=== PATIENT | female | born 1965 | race African-American/Black ===

== ENCOUNTER → 2020-07-11 15:49 | Outpatient (CLI) | payer OTHER, SELFPAY ==
--- NOTE | ~2020-07-11 | MM_ITS ---
EXAMINATION: MM screening maureen BI w yan HISTORY: Screening mammogram TECHNIQUE: Craniocaudal and mediolateral oblique 3-D tomosynthesis images were obtained and synthetic 2-D images were generated. CAD analysis was submitted and interpreted. COMPARISON: 09/24/2017, 07/10/2016, 03/04/2015 bilateral digital screening mammogram examinations BREAST PARENCHYMAL COMPOSITION: There are scattered areas of fibroglandular density. FINDINGS: Occasional bilateral benign calcifications. There is no evidence of suspicious mass, calcif ication, or architectural distortion to suggest malignancy in either breast. There has been no suspic ious interval change. IMPRESSION: 1. No mammographic evidence of malignancy. 2. Recommend routine screening mammography in one year. BI-RADS Category 2: Benign finding(s). Reviewed, dictated and finalized at location A.
== END ==
PROVIDERS: Visit Provider Obstetrics & Gynecology
DX: Z12.31 Encounter for screening mammogram for malignant neoplasm of breast (principal)
CPT/HCPCS: 77063; 77067

== ENCOUNTER → 2021-07-15 17:04 | Outpatient (CLI) | payer OTHER, SELFPAY ==
--- NOTE | ~2021-07-15 | MM_ITS ---
EXAMINATION: MM screening maureen BI w yan HISTORY: Screening mammogram TECHNIQUE: Craniocaudal and mediolateral oblique 3-D tomosynthesis images were obtained and synthetic 2-D images were generated. CAD analysis was submitted and interpreted. COMPARISON: 07/11/2020, 09/24/2017, 07/10/2016 bilateral digital screening mammogram examinations BREAST PARENCHYMAL COMPOSITION: There are scattered areas of fibroglandular density. FINDINGS: Bilateral benign appearing axillary tail lymph nodes. Calcified circumscribed opacity in th e lower outer quadrant of the right breast near midline, likely a benign calcified fibroadenoma. Ther e is no evidence of suspicious mass, calcification, or architectural distortion to suggest malignancy in either breast. There has been no suspicious interval change. IMPRESSION: 1. No mammographic evidence of malignancy. 2. Recommend routine screening mammography in one year. BI-RADS Category 2: Benign finding(s). Reviewed, dictated and finalized at location A.
== END ==
PROVIDERS: PCP Internal Medicine; Visit Provider Obstetrics & Gynecology
DX: Z12.31 Encounter for screening mammogram for malignant neoplasm of breast (principal)
CPT/HCPCS: 77063; 77067

== ENCOUNTER 2021-08-19 01:49 | Day surgery (SDC) | payer OTHER, SELFPAY ==
[2021-07-31 13:52] VITALS: BMI 42.3
[2021-08-19 08:17] VITALS: BP 144/70; PULSE 66; RESP 16; TEMP 35.9; O2SAT 98
[2021-08-19] MEDS: LACTATED RINGERS 1,000 ML 150 ML IV CONT (08:29)
--- NOTE | 2021-08-19 08:41 | WPDANESEPPF ---
Anes - Initial Pre Proc Eval Procedure: Operation Date: 08/19/21 09:00 Proposed Procedures p Screening Colonoscopy - Kai Mo MD Date/Time: 08/19/21 08:41 Surgeon: Kai Mo MD Pre Op Diagnosis: neoplasm screening Patient Data Age: 56 Gender: F Height: 1.57 m Weight: 103.4 kg Last Vital Signs Temp 96.7 F L 08/19/21 08:17 Pulse 66 08/19/21 08:17 Resp 16 08/19/21 08:17 BP 144/70 H 08/19/21 08:17 Pulse Ox 98 08/19/21 08:17 Allergies Allergy/AdvReac Type Severity Reaction Status Date / Time No Known Allergies Allergy Verified 08/19/21 08:16 Home Medications Medication Instructions Recorded Confirmed Type gabapentin 100 mg PO TID 07/31/21 07/31/21 History Patient hx anesthesia problems: none Family hx anesthesia problems: none Results Review: All pre-operative results and documents have been reviewed as part of the pre-operative evaluation. FORMERLY [facility], [facility]–1983 Past Medical History Medical History (Updated 06/12/21 @ 09:01 by Tommy Brownlee MD) Asthma Surgical History Surgical History Previous section Family History Family History Grandparent Family history of malignant neoplasm of breast Family history of type 2 diabetes mellitus Social History Social History Smoking status: Never smoker Alcohol intake: never Substance use: never Substance use type: does not use Living arrangements: with family Spiritual care concerns: No Anes - Eval Final PreProcedure Day of Procedure 08/19/21 08:41 Patient weight: morbidly obese Heart: regular rate and rhythm Lungs: clear to auscultation Airway: Mallampati scale class II Neurological: alert and oriented Last oral intake: >/= 8 hours ASA classification: III Emergent: no Anesthetic plan: proceed Anesthesia type and monitoring: general GIVS and standard monitoring Results Review: All pre-operative results and documents have been reviewed as part of the pre-operative evaluation. Informed Consent: The patient's anesthetic plan and its attendant risks and benefits were discussed with the patient/family/POA. Questions were solicited and answers provided to the satisfaction of the patient/family/POA.
--- NOTE | 2021-08-19 08:46 | PM.HPGS ---
History of Present Illness History of Present Illness Consent: Risks, benefits, and alternatives have been discussed and questions answered. Patient agrees to proceed with procedure. Chief complaint: neoplasm screening Narrative: Dominique Manzano is a 56 year old female here for first screening colonoscopy Review of Systems Constitutional: Constitutional: Denies headache(s) and Denies weakness Eyes: Eyes: Denies blurry vision ENT: Reports Normal hearing present, Denies headache(s) and Denies neck pain Cardiovascular: Cardiovascular: Denies chest pain and Denies dyspnea Respiratory: Respiratory: Denies dyspnea Gastrointestinal: Gastrointestinal: Reports no additional gastrointestinal complaints Genitourinary: Genitourinary: Denies dysuria Musculoskeletal: Musculoskeletal: Denies neck pain Integumentary/Breasts: Skin/Breast: Denies dry skin Neurologic: Reports Normal hearing present, Denies headache(s) and Denies weakness Psychiatric: Psychiatric: Denies anxiety Endocrine: Endocrine: Denies change in body appearance Hematologic/Lymphatic: Hematologic/Lymphatic: Denies easy bleeding Allergic/Immunologic: Allergic/Immunologic: Denies urticaria [facility] Past Medical History Medical History (Updated 08/19/21 @ 08:46 by Kai Mo MD) Asthma Colon cancer screening Surgical History Surgical History Previous section Family History Family History Grandparent Family history of malignant neoplasm of breast Family history of type 2 diabetes mellitus Social History Social History Smoking status: Never smoker Alcohol intake: never Substance use: never Substance use type: does not use Living arrangements: with family Spiritual care concerns: No Meds Home Medications and Allergies Home Medications Medication Instructions Recorded Confirmed Type gabapentin 100 mg PO TID 07/31/21 08/19/21 History Allergies Allergy/AdvReac Type Severity Reaction Status Date / Time No Known Allergies Allergy Verified 08/19/21 08:16 Vital Signs Vital Signs - 24 hr 08/19/21 08:17 Temperature 96.7 F L Pulse Rate 66 Respiratory Rate 16 Blood Pressure 144/70 H Pulse Oximetry 98 Exam Const: General: comfortable and no acute distress HENMT: General nose exam: Normal nares present Eyes: General: appearance normal, both eyes and all related structures Neck: Neck: no JVD Resp: Auscultation: clear to auscultation bilaterally Cardio: Rate: regular rate Rhythm: regular rhythm GI: Inspection: non-distended GI Palp: Yes Soft to palpation Skin: General skin exam: normal color Neuro: General: gait normal Speech: normal speech Extrem: General: normal to inspection Psych: Mental Status: mental status grossly normal Assessment and Plan Assessment and plan (1) Colon cancer screening: Code(s): Z12.11 - Encounter for screening for malignant neoplasm of colon Status: Acute Assessment and Plan: colonoscopy
[2021-08-19 09:03] VITALS: BP 116/57; PULSE 72; RESP 12; O2SAT 100
[2021-08-19 09:13] VITALS: BP 122/87; PULSE 68; RESP 15; O2SAT 99
[2021-08-19 09:23] VITALS: BP 124/66; PULSE 65; RESP 19; O2SAT 100
== END 2021-08-19 09:45 | disposition home or self-care (01) ==
PROVIDERS: PCP Internal Medicine; Visit Provider Internal Medicine Gastroenterology
PROC: 0DJD8ZZ Inspection of Lower Intestinal Tract, Via Natural or Artificial Opening Endoscopic (ICD-10-PCS; CPT 45378; principal; 2021-08-19 09:00)
DX: Z12.11 Encounter for screening for malignant neoplasm of colon (principal); K64.8 Other hemorrhoids; E66.01 Morbid (severe) obesity due to excess calories; Z68.41 Body mass index [BMI] 40.0-44.9, adult
CPT/HCPCS: 45378; J2704; J7120

== ENCOUNTER → 2022-08-05 11:26 | Outpatient (CLI) | payer OTHER, SELFPAY ==
--- NOTE | ~2022-08-05 | MM_ITS ---
EXAMINATION: MM screening maureen BI w yan HISTORY: Screening TECHNIQUE: Craniocaudal and mediolateral oblique 3-D tomosynthesis images were obtained and synthetic 2-D images were generated. CAD analysis was submitted and interpreted. COMPARISON: Comparison to multiple prior studies sequentially, with oldest reviewed study dated 03/04. BREAST PARENCHYMAL COMPOSITION: There are scattered areas of fibroglandular density. FINDINGS: There is no evidence of suspicious mass, calcification, or architectural distortion to sugg est malignancy in either breast. There has been no suspicious interval change. IMPRESSION: 1. No mammographic evidence of malignancy. 2. Recommend routine screening mammography in one year. BI-RADS Category 1: Negative Reviewed, dictated and finalized at location A. TAL ADVERTISING SPECIALIST
== END ==
PROVIDERS: PCP Obstetrics & Gynecology; Visit Provider Obstetrics & Gynecology
DX: Z12.31 Encounter for screening mammogram for malignant neoplasm of breast (principal)
CPT/HCPCS: 77063; 77067

== ENCOUNTER 2022-12-16 13:33 | Outpatient (CLI) | payer OTHER, SELFPAY ==
[2022-12-17 13:58] LABS: Rapid Plasma Reagin Non-Reactive (NonReactive)
[2022-12-19 21:16] LABS: HSV 1 IgM Screen Negative (Negative); HSV 2 IgM Screen Positive (Negative)
[2022-12-19 21:47] LABS: HSV 2 IgM Titer 1:20 (<1:20)
== END 2022-12-16 13:34 | disposition home or self-care (01) ==
LOC: ANHLAB 13:35
PROVIDERS: PCP Obstetrics & Gynecology; Visit Provider Registered Nurse
DX: Z20.2 Contact with and (suspected) exposure to infections with a predominantly sexual mode of transmission (principal)
CPT/HCPCS: 36415; 86592; 86695; 86696

== ENCOUNTER → 2023-08-10 12:28 | Outpatient (CLI) | payer OTHER, SELFPAY ==
--- NOTE | ~2023-08-10 | MM_ITS ---
EXAMINATION: MM screening maureen BI w yan HISTORY: Screening mammogram TECHNIQUE: Craniocaudal and mediolateral oblique 3-D tomosynthesis images were obtained and synthetic 2-D images were generated. CAD analysis was submitted and interpreted. COMPARISON: 08/05/2022, 07/15/2021, 07/11/2020 bilateral screening mammogram examinations BREAST PARENCHYMAL COMPOSITION: There are scattered areas of fibroglandular density. FINDINGS: Stable mild fibroglandular asymmetry. Occasional benign calcifications. There is no evidenc e of suspicious mass, calcification, or architectural distortion to suggest malignancy in either [address] There has been no suspicious interval change. IMPRESSION: 1. No mammographic evidence of malignancy. 2. Recommend routine screening mammography in one year. BI-RADS Category 2: Benign finding(s). Reviewed, dictated and finalized at location A. PAN OPERATOR
== END ==
PROVIDERS: PCP Obstetrics & Gynecology; Visit Provider Obstetrics & Gynecology
DX: Z12.31 Encounter for screening mammogram for malignant neoplasm of breast (principal)
CPT/HCPCS: 77063; 77067

== ENCOUNTER 2024-08-15 15:59 | Outpatient (CLI) | payer OTHER, SELFPAY ==
--- NOTE | ~2024-08-15 | MM_ITS ---
EXAMINATION: MM screening maureen BI w yan HISTORY: Screening TECHNIQUE: Craniocaudal and mediolateral oblique 3-D tomosynthesis images were obtained and synthetic 2-D images were generated. CAD analysis was submitted and interpreted. COMPARISON: Comparison to multiple prior studies sequentially, with oldest reviewed study dated 01/2018. BREAST PARENCHYMAL COMPOSITION: Not dense: There are scattered areas of fibroglandular density. FINDINGS: There is no evidence of suspicious mass, calcification, or architectural distortion to sugg est malignancy in either breast. There has been no suspicious interval change. IMPRESSION: 1. No mammographic evidence of malignancy. 2. Recommend routine screening mammography in one year. BI-RADS Category 1: Negative Reviewed, dictated and finalized at location B. ATIENT SURGERY RN
== END 2024-08-15 16:00 | disposition home or self-care (01) ==
LOC: MICIMG 15:59
PROVIDERS: PCP Obstetrics & Gynecology; Visit Provider Obstetrics & Gynecology
DX: Z12.31 Encounter for screening mammogram for malignant neoplasm of breast (principal)
CPT/HCPCS: 77063; 77067

== ENCOUNTER 2024-09-12 07:11 | Outpatient (CLI) | payer OTHER, SELFPAY ==
[2024-09-12 08:09] LABS: Basophils Percent Auto 0.5 % (0.2-1.2); Eosinophils Absolute Auto 0.1 K/mm3 (0-0.3); Eosinophils Percent Auto 1.4 % (0-4.4); Hemoglobin 13.2 g/dL (12.0-15.0); Immature Granulocyte Absolute 0.03 K/mm3 (0.00-0.031); Immature Granulocyte Percent A 0.5 % (0-0.5); Lymphocytes Absolute Auto 1.58 K/mm3 (0.9-3.2); Lymphocytes Percent Auto 28.6 % (18.3-44.2); Mean Corpuscular Hemoglobin 29.8 pg (26-34); Mean Corpuscular Volume 90.3 fl (80-100); Mean Platelet Volume 10.1 fl (7.4-10.4); Monocytes Absolute Auto 0.4 K/mm3 (0.1-0.6); Monocytes Percent Auto 6.9 % (2.6-8.5); Neutrophils Absolute Auto 3.4 K/mm3 (1.3-6.7); Neutrophils Percent Auto 62.1 % (45.5-73.1); Platelet Count Result 288 k/mm3 (150-375); Red Blood Count 4.43 M/mm3 (4.2-5.4); Red Cell Distribution Width 12.7 % (11.5-14.5); White Blood Count 5.5 K/mm3 (4.5-10.0)
[2024-09-12 08:18] LABS: Alanine Aminotransferase 16 U/L (6-35); Albumin Level 3.9 g/dL (3.5-5.1); Alkaline Phosphatase 119 U/L (38-126); Anion Gap 1 mmol/L (4-12); Aspartate Amino Transferase 24 U/L (14-36); Bilirubin,Total 0.6 mg/dL (0.2-1.3); Blood Urea Nitrogen 12 mg/dL (7-17); Calcium 9.1 mg/dL (8.4-10.2); Carbon Dioxide 30 mmol/L (22-30); Chloride 108 mmol/L (98-107); Cholesterol 232 mg/dL (0-200); Estimated Glomerular Filt Rate > 60; Glucose 112 mg/dL (65-110); HDL Direct 55 mg/dL; Potassium 3.8 mmol/L (3.4-5.0); Sodium 139 mmol/L (137-145); Triglycerides 124 mg/dL (<150)
[2024-09-12 08:29] LABS: LDL Cholesterol Direct 124 mg/dL
[2024-09-12 09:33] LABS: Vitamin D 25 Hydroxy 16.8 ng/mL
--- OUTSIDE RECORDS SUMMARY | 2024-09-19 04:37 | XMS_ITS | Referral Summary ---
Author Organization [facility] [place] [address] [place] [id number] Care Team Providers Care Livestock Farmworker Name Role Phone Lillian Adam MD Primary Care Provider [phone] Tommy Brownlee MD Unavailable [phone] Allergies No known active allergies Medications ergocalciferol (VITAMIN D) 50,000 unit capsuleIndicati ons:Vitamin D deficiency TAKE 1 CAPSULE BY MOUTH ONE TIME PER WEEK 12 capsule 1 Active meloxicam (MOBIC) 7.5 mg tabletIndicatio ns:Osteoarthrit is Take 1 tablet (7.5 mg total) by mouth daily 30 tablet 1 1 Active Additional Information Patient not taking.Reported on 09/09/2021 gabapentin (NEURONTIN) 100 mg capsule Take 1 capsule (100 mg total) by mouth 3 (three) times a day 90 capsule 11 1 Active HYDROcodone-karissa taminophen (NORCO) 5-325 mg per tabletIndicatio ns:Pain,post op pain Take 1 tablet by mouth every 4 (four) hours as needed for pain 30 tablet 1 Active Active Problems Problem Noted Date Diagnosed Date Carpal tunnel syndrome of right wrist 06/12/2021 Assessment & Plan (06/12/2021 2:12 PM CDT): Positive Phalen sign HPI consistent and high risk with job, BMI Provided spliting mobic, offered PT but she wants to hold off for now Vitamin D deficiency (17) 02/25/2021 Overview (02/25/2021): vit D workup. isn't keen on sleep apnea workup. treat with high dose vit D adn recheck labs w/ video visit in a couple weeks and vit D in 3mo Assessment & Plan (06/12/2021 2:13 PM CDT): Reviewed all labs with her, including h.pylori and celiac testing, encouraged her to keep up with the prescrtiption Vit D. Everything else was WNL alkphos elevation mild (nl GGT) 02/25/2021 Overview (02/25/2021): check isoenzymes and phos levels. GGT and US GB were nl. more likely bone....but may need hida in future? Gut?(fatty stool) Morbid obesity with BMI of 40.0-44.9, adult 04/2021 Overview (02/25/2021): w/ prediabetes,HTN,HLD,carotid atherosclerosis. will rediscuss wt loss options HLD (LDL 138) 02/25/2021 Overview (02/25/2021): discussed role of statins if diabetic. otherweise diet/exercise B12 deficiency (2012) 02/25/2021 Overview (02/25/2021): check hpylori,has vit D def.check homocystein (carotid atherosclerosis) Prediabetes 02/25/2021 Overview (02/25/2021): hga1c 6.5, FBS 110. discussed in length prediabetes. advised monitor sugars and discuss at video visit. will discuss wt loss options in future (wants to discuss Right apex Lung calcification-to readdress 02/25 Hepatic steatosis 02/25/2021 Overview (02/25/2021): w/ alkphos,vit D def,obesity, Carotid atherosclerosis (<15% b/l) 01/20/2021 Assessment & Plan (02/25/2021 6:04 PM CDT): Reduce risk factors. Check if DM. If so discussed criteria for RF control Chronic vasomotor rhinitis 01/20/2021 HTN, goal below 140/90 01/20/2021 Overview (01/20/2021): workup. appears bouncing around. vasomotor??. right<left. Assessment & Plan (02/25/2021 6:00 PM CDT): Has plaque in carotids minimal on US. Rest of workup normal. Recommend home bp. Today diastolic a little low (vasodilated w/ sligthly low temp of 35.7). Cough 01/20/2021 Assessment & Plan (02/25/2021 6:02 PM CDT): improved Polyarthralgia 01/20/2021 Overview (01/20/2021): hands in am (minutes). medial knees Exercise-induced bronchospasm 05/07/2011 RAD (reactive airway disease) 05/07/2011 Resolved Problems Problem Noted Date Diagnosed Date Resolved Date Thyromegaly 01/20/2021 02/25/2021 Immunizations Name Administration Dates Next Due Influenza, Quadrivalent, Rec ombinant, Egg Free, Preservative Free, Intramuscular 07/04/2020 Moderna SARS-CoV-2 Monovalent Vaccination (12+ Y RS) 11/27/2020,10/30/2020 Tdap 11/12/2006 Social History Tobacco Use Types Packs/Day Years Used Date Smoking Tobacco: Never Smokeless Tobacco: Never AUDIT-C Answer Date Recorded Q1: How often do you have a drink containing alc ohol? 2-4 times a month 09/09/2021 Q2: How many drinks containi ng alcohol do you have on a typical day when you are drinking? 1 or 2 09/09/2021 Q3: How often do you have si x or more drinks on one occasion? 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 [employer] Gender Identity Not on file Sexual Orientation Not on file Last Filed Vital Signs Vital Sign Reading Time Taken Comments Blood Pressure 134/64 09/09/2021 11:30 AM SWEEPER OPERATOR [employer] Pulse 58 09/09/2021 11:30 AM SWEEPER OPERATOR [employer] Temperature 36.3 ??C (97.3 ??F) 09/09/2021 11:[address] Respiratory Rate 16 09/09/2021 11:30 AM SWEEPER OPERATOR [employer] Oxygen Saturation 95% 09/09/2021 11:30 AM SWEEPER OPERATOR [employer] Inhaled Oxygen Concentration - - Weight 106.2 kg (234 lb 1 oz) 09/09/2021 7:51 AM SWEEPER OPERATOR [employer] Height 157.5 cm (5' 2 ) 09/09/2021 7:51 AM SWEEPER OPERATOR [employer] Body Mass Index 42.81 09/09/2021 7:51 AM SWEEPER OPERATOR [employer] Plan of Treatment Not on file Procedures Procedure Name Priority Date/Time Associated Diagnosis Comments MAMMOGRAPHY Routine 07/11/2020 PAP SMEAR WITH HPV Routine 06/04/2020 from Last 3 Months or Most Recently Relevant to Health Maintenance Results * MAMMOGRAPHY (07/11/2020) Historical Provider HEALTH MAINTENANCE Final Result * PAP SMEAR WITH HPV (06/04/2020) Historical Provider HEALTH MAINTENANCE Final Result from Last 3 Months or Most Recently Relevant to Health Maintenance Insurance [facility] H[facility]/PPO Address: [address] [place] [address] [facility]/PPO Address: [place] [address] Care Teams Livestock Farmworker Relationship Specialty Start Date End Date Lillian Adam MD [address] [place] [phone] PCP - General Internal Medicine 12/25/20 Tommy Brownlee MD [address] [address] Referring Physician Obstetrics and Gynecology 01/20/21
--- OUTSIDE RECORDS SUMMARY | 2024-09-19 04:37 | XMS_ITS | Encounter Summary ---
Author Organization [facility] Address [address] [place] [address] Care Team Providers Care Guest Associate Name Role Phone Lillian Adam MD Primary Care Provider [phone] Tommy Brownlee MD Unavailable [phone] Reason for Referral * Diagnostic Imaging (Routine) - Closed Specialty Diagnoses / Procedures Referred By Zeny shaw Referred To Contact Diagnoses Localized swelling, mass, or lump of upper extremity, bilateral Procedures US Vein Duplex Upper Extremity Bilateral Complete Lillian Adam MD [address] [place] [id number] Phone: tel: fax: [address] [phone] Referral ID Status Reason Start Date Expiration Date Visits Re quested Visits Authorized [id number] Closed 07/16/2021 08/15/2022 1 1 Reason for Visit * Diagnostic Imaging (Routine) - Closed Specialty Diagnoses / Procedures Referred By Zeny shaw Referred To Contact Diagnoses Localized swelling, mass, or lump of upper extremity, bilateral Procedures US Vein Duplex Upper Extremity Bilateral Complete Lillian Adam MD [address] [place] [address] Phone: tel: fax: [address] [phone] Referral ID Status Reason Start Date Expiration Date Visits Re quested Visits Authorized [id number] Closed 07/16/2021 08/15/2022 1 1 Encounter Details Date Type Department Care Team (Latest Contact Info) Description 07/25/2021 9:20 AM CDT - 07/25/2021 11:59 PM CDT Hospital Encounter [facility] Cardiac Testing [address] [place] [id number] Localized swelling, mass, or lump of upper extremity, bilateral Discharge Disposition: Discharge to home or self care Social History Tobacco Use Types Packs/Day Years Used Date Smoking Tobacco: Never Smokeless Tobacco: Never AUDIT-C Answer Date Recorded Q1: How often do you have a drink containing alc ohol? Monthly or less 01/20/2021 Q2: How many drinks containi ng alcohol do you have on a typical day when you are drinking? 1 or 2 01/20/2021 Frequency of Binge Drinking Not on file 11/2020 PHQ-2 Answer Date Recorded PHQ-2 Total Score (If total score is 3 or more points, staff should administer the PHQ-9) 0 01/20/2021 Comments No Sex and Gender Information Value Date Recorded Sex Assigned at Not on file Legal Sex Female 8:38 PM LEAF TIER Gender Identity Not on file Sexual Orientation Not on file documented as of this encounter Medications at Time of Discharge ergocalciferol (VITAMIN D) 50,000 unit capsuleIndicatio ns:Vitamin D deficiency TAKE 1 CAPSULE BY MOUTH ONE TIME PER WEEK 12 capsule 05/16/2021 gabapentin (NEURONTIN) 100 mg capsule Take 1 capsule (100 mg total) by mouth 3 (three) times a day 90 capsule 11 07/30/2021 meloxicam (MOBIC) 7.5 mg tabletIndication s:Osteoarthritis Take 1 tablet (7.5 mg total) by mouth daily 30 tablet 1 06/12/2021 levoFLOXacin (LEVAQUIN) 500 mg tablet Take 1 tablet (500 mg total) by mouth daily for 10 days 10 tablet 07/16/2021 07/26/2021 fluconazole (DIFLUCAN) 150 mg tablet Take 1 tablet (150 mg total) by mouth as directed Take one tab now. Repeat in 7 days if symptoms persist. 2 tablet 07/16/2021 09/09/2021 predniSONE (DELTASONE) 20 mg tabletIndication s:Anti-inflammat ory,Radiculopath y 3tabs for 5days, then 2 tabs for 5day,then 1tab for 5days 30 tablet 07/16/2021 09/09/2021 documented as of this encounter Discharge Disposition Disposition Code Departure Means Destination Discharge to home or self care documented in this encounter Miscellaneous Notes * Result Encounter Note - Lillian Adam MD - 07/25/2021 11:59 PM CDT Inform pt normal. Any questions can be answered at next visit. TIER documented in this encounter Plan of Treatment Not on file documented as of this encounter Procedures Procedure Name Priority Date/Time Associated Diagnosis Comments US VEIN DUPLEX UPPER EXTREMITY BILATERAL COMPLETE Schedule Routine, Read Routine (OP Routine) 07/25/2021 10:06 AM CDT Localized swelling, mass, or lump of upper extremity, bilateral documented in this encounter Results * US Vein Duplex Upper Extremity Bilateral Complete (07/25/2021 10:06 AM CDT) Anatomical Region Laterality Modality Vascular Bilateral Ultrasound 07/25/2021 Narrative 07/26/2021 7:30 AM CDT [employer] Job ID: [id number] [employer] Document ID: [id number] Dictated date/time: [id number] BILATERAL UPPER EXTREMITY VENOUS DUPLEX REASON FOR EXAM Swelling. FINDINGS ON THE RIGHT The right internal jugular, subclavian, axillary demonstrate spontaneous phasic flow that augments and are compressible. ??The brachiocephalic, basilic demonstrate spontaneous flow and are compressible. FINDINGS ON THE LEFT The left internal jugular, subclavian, axillary demonstrate spontaneous phasic flow that augments and are compressible. ??The brachiocephalic and basilic are all spontaneous and are compressible. INTERPRETATION No evidence of deep or superficial venous thrombosis in bilateral upper extremities. JOB ID/VF JOB ID: ??[id number] Lillian Adam MD IMG US PROCEDURES Final Resu lt documented in this encounter Visit Diagnoses Diagnosis Localized swelling, mass, or lump of upper extremity, bilateral documented in this encounter Care Teams Guest Associate Relationship Specialty Start Date End Date Lillian Adam MD [employer] [address] PCP - General Internal Medicine 12/25/20 Tommy Brownlee MD [address] [place] [address] Referring Physician Obstetrics and Gynecology 01/20/21 documented as of this encounter
--- OUTSIDE RECORDS SUMMARY | 2024-09-19 04:37 | XMS_ITS | Encounter Summary ---
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 Name Role Phone Lillian Adam MD Primary Care Provider [phone] Tommy Brownlee MD Unavailable [phone] Reason for Visit * Auth/Cert Specialty Diagnoses / Procedures Referred By Zeny shaw Referred To Contact Diagnoses Carpal tunnel syndrome on right Carpal tunnel syndrome on right [G56.01] Procedures MA REVISE MEDIAN N/CARPAL TUNNEL SURG RELEASE RIGHT CARPAL TUNNEL Referral ID Status Reason Start Date Expiration Date Visits Re quested Visits Authorized [id number] 1 1 Encounter Details Date Type Department Care Team (Late st Contact Info) Description 09/09/2021 10:06 AM LIBRARY HISTORIAN Anesthesia Event [facility] [place] [address] [place] [id number] Zeina Finch MD [address] [place] [address] Dalton Davalos MD [address] [place] [address] Anesthesia Record Procedure Summary Procedure Name Responsible Anesthesiologist Anesthesia Start Time Anesthesia Stop Time RELEASE RIGHT CARPAL TUNNEL (Right: Wrist) Zeina Finch MD 09/09/21 1006 09/09/21 1027 Events Date Time Event Comment 09/09/2021 0828 1006 In Room 1006 An Start 1006 An Start Data 1009 An Induction The patient was reevaluated immediately before moderate or deep sedation use and before anesthesia induction. 1011 An LMA 1012 Anesthesia Ready 1013 Proc Start 1018 Proc Fin 1020 An Extubation 1021 Start Supplemental O2 8 LPM SFM applied for transport to recovery 1022 Out of Room 1022 an stop data 1025 Handoff to RN I completed my handoff to the receiving nurse during which we: 1. Patient identified 2. Responsible provider identified 3. Pertinent medical history reviewed 4. Procedure type and surgical course discussed 5. Intraoperative anesthetic management and any significant issues discussed 6. Expectations and concerns for postop period discussed 7. Questions solicited from receiving nurse 8. Patient disposition at the time of handoff: PACU 1027 An Stop Meds Name Total propofol 200 mg lidocaine (cardiac) syringe 2 % 80 mg fentaNYL 50 mcg/mL PF 100 mcg ondansetron PF 4 mg dexAMETHasone 4 mg/mL 4 mg ceFAZolin (ANCEF) 2,000 mg/20 mL in ster ile water (premix) 2,000 mg 2,000 mg Lactated Ringer's (LR) infusion 400 mL * Agents Name O2% N2O O2 N2O Air Sevoflurane Inspired Sevoflurane * Blood No blood administrations on file. Lines, Drains, and Airways Type Details Placement Removal Peripheral IV Placement Date: 09/09/21; Placement Time: 0815; Catheter Size: 20 G; Orientation: Left, Posterior; Location: Hand; Technique: Anatomical landmarks; Insertion Attempts: 1; Removal Date: 09/09/21; Removal Time: 1131 09/09/21 0815 by Edita Roper RN 09/09/21 1131 by Edita Roper, TERELL Supraglottic Airway Placement Date: 09/09/21; Placement Time: 1011 (created via procedure documentation); Mask Ventilation: 0; Size: 4; Insertion Attempts: 1; Comments: Atraumatic, no change in dentition. ; Removal Date: 09/09/21; Removal Time: 1100 (removed prior to phase 2) 09/09/21 1011 by Stephanie Gray CRNA 09/09/21 1100 by Edita Roper RN RETIRED Surgical Site 09/09/21; 1015; Ri ght; Hand; 08/22/24 (Retired LDA, Removed/Completed by [facility] with LDA Utility); 1213 (Retired LDA, Removed/Completed by [facility] with LDA Utility) 09/09/21 1015 by Arina Menendez RN 08/22/24 1213 by Discharge Provider, Automatic documented in this encounter Social History Tobacco Use Types Packs/Day Years [...] on file Legal Sex Female 8:38 PM LIBRARY HISTORIAN Gender Identity Not on file Sexual Orientation Not on file documented as of this encounter OR Notes * Anesthesia Postprocedure Evaluation - Dalton Davalos MD - 09/09/2021 10:53 AM CST Patient: Dominique Manzano Procedure Summary Date: 09/09/21 Room / Location: [facility] / [facility] Anesthesia Start: 1006 Anesthesia Stop: 1027 Procedure: RELEASE RIGHT CARPAL TUNNEL (Right Wrist) Diagnosis: Carpal tunnel syndrome on right (Carpal tunnel syndrome on right [G56.01]) Surgeons: Rashaad Miller MD Responsible Provider: Zeina Finch MD Anesthesia Type: general ASA Status: 3 Anesthesia Type: general Last vitals BP 138/77 (BP Location: Left arm, Patient Position: HOB 30 degrees) Pulse 66 Temp 36.6 ??C (97.8 ??F) (Temporal) Resp 18 SpO2 99% Anesthesia Post Evaluation Patient location during evaluation: PACU Patient participation: complete - patient participated Level of consciousness: fully awake Pain management: adequate Airway patency: adequate Evidence of recall: no Cardiovascular status: acceptable Respiratory status: acceptable Hydration status: acceptable Pt is: normothermic Nausea/Vomiting status: none No complications documented. ARY HISTORIAN * Anesthesia Procedure Notes - Stephanie Gray CRNA - 09/09/2021 10:27 AM CSTAssociated Order(s): Airway Airway Patient location: OR Urgency: elective Date/time: 09/09/2021 10:11 AM Indications for airway management: anesthesia Difficult airway: no Staff: Supervising provider: Zeina Finch MD Placed by: RUNNER OUT: Stephanie Gray CRNA Emergent airway documentation: Risks and benefits discussed: yes Consent obtained: yes Consent given by: patient Airway prep: Preoxygenated: yes Patient position: sniffing Mask difficulty assessment: 0 - not attempted Spontaneous ventilation during airway: absent Sedation level during airway: deep Final airway details: Final airway type: supraglottic airway Final supraglottic airway: classic SGA size: 4 Number of attempts: 1 Additional comments: Atraumatic, no change in dentition. ARY HISTORIAN * Anesthesia Preprocedure Evaluation - Zeina Finch MD - 09/09/2021 8:27 AM CST Images from the original note were not included. Anesthesia Evaluation Dominique Manzano is a 56 y.o. female Procedure(s): RELEASE RIGHT CARPAL TUNNEL Pre-Op Diagnosis Codes: * Carpal tunnel syndrome on right [G56.01] HISTORY Past Medical History Neurological + CVA/Stroke + ICA stenosis Cardiovascular + Hypertension Respiratory + Asthma Endocrine / Other + Obesity (BMI >30) Patient Active Problem List Diagnosis ? ? Carotid atherosclerosis (<15% b/l) ??? Chronic vasomotor rhinitis ??? HTN, goal below 140/90 ??? Cough ??? Polyarthralgia ??? Vitamin D deficiency (17) ??? alkphos elevation mild (nl GGT) ??? Morbid obesity with BMI of 40.0-44.9, adult (HCC) ??? HLD (LDL 138) ??? B12 deficiency (307 2012) ??? Prediabetes ??? Right apex Lung calcification-to readdress ??? Hepatic steatosis ??? Carpal tunnel syndrome of right wrist ??? Exercise-induced bronchospasm ??? RAD (reactive airway disease) Past Medical History: Diagnosis Date ??? Allergic rhinitis ? ? Carotid atherosclerosis (<15% b/l) 01/20/2021 ??? Exercise-induced asthma ??? HLD (LDL 138) 02/25/2021 discussed role of statins if diabetic. otherweise diet/exercise Past Surgical History: Procedure Laterality Date ??? SECTION ??? COLONOSCOPY OB History No obstetric history on file. No Known Allergies Taking? Last Dose Start Date End Date Provider gabapentin (NEURONTIN) 100 mg capsule 08/21/2021 07/30/21 07/30/22 Lillian Adam MD Take 1 capsule (100 mg total) by mouth 3 (three) times a day meloxicam (MOBIC) 7.5 mg tablet Unknown 06/12/21 -- Grant St Jr., MD Take 1 tablet (7.5 mg total) by mouth daily Flag for Review Taking? Last Dose Start Date End Date Provider ergocalciferol (VITAMIN D) 50,000 unit capsule 05/16/21 -- Lillian Adam MD TAKE 1 CAPSULE BY MOUTH ONE TIME PER WEEK fluconazole (DIFLUCAN) 150 mg tablet 07/16/21 -- Lillian Adam MD Take 1 tablet (150 mg total) by mouth as directed Take one tab now. Repeat in 7 days if symptoms persist. predniSONE (DELTASONE) 20 mg tablet 07/16/21 -- Lillian Adam MD 3tabs for 5days, then 2 tabs for 5day,then 1tab for 5days Current Facility-Administered Medications: ??? acetaminophen (TYLENOL) tablet 975 mg, 975 mg, oral, Once ??? ceFAZolin (ANCEF) 2,000 mg/20 mL in sterile water (premix) 2,000 mg, 2,000 mg, intravenous, Once ??? famotidine (PEPCID) tablet 20 mg, 20 mg, oral, Once ??? Lactated Ringer's (LR) infusion, 30 mL/hr, intravenous, Continuous ??? lidocaine PF (XYLOCAINE) 10 mg/mL (1 %) preservative free injection 2-10 mg, 0.2-1 mL, other, Once PRN ??? sodium chloride 0.9% flush 0.5-20 mL, 0.5-20 mL, intra-catheter, PRN Social History Tobacco Use Smoking Status Never Smoker Smokeless Tobacco Never Used Substance and Sexual Activity Alcohol Use Not on file Substance and Sexual Activity Drug Use Never No family history on file. Vitals: 09/09/21 0751 BP: 150/81 Pulse: 79 Resp: 18 Temp: 36.6 ??C (97.9 ??F) SpO2: 97% PT: No results found for requested labs within last 720 hours. INR: No results found for requested labs within last 720 hours. APTT: No results found for requested labs within last 720 hours. Hgb A1C: No results found for requested labs within last 720 hours. CBC RBC: No results found for requested labs within last 720 hours. RDW: No results found for requested labs within last 720 hours. MCHC: No results found for requested labs within last 720 hours. MCH: No results found for requested labs within last 720 hours. MCV: No results found for requested labs within last 720 hours. Hct: No results found for requested labs within last 720 hours. Hgb: No results found for requested labs within last 720 hours. WBC: No results found for requested labs within last 720 hours. MPV: No results found for requested labs within last 720 hours. Platelets: No results found for requested labs within last 720 hours. RDW CV: No results found for requested labs within last 720 hours. RDW Sd: No results found for requested labs within last 720 hours. BMP Glucose: No results found for requested labs within last 720 hours. Calcium: No results found for requested labs within last 720 hours. Sodium: No results found for requested labs within last 720 hours. Potassium: No results found for requested labs within last 720 hours. CO2: No results found for requested labs within last 720 hours. Chloride: No results found for requested labs within last 720 hours. BUN: No results found for requested labs within last 720 hours. Creatinine: No results found for requested labs within last 720 hours. STOP-Bang Total Score: 3 DOS Physical Exam Medical history, medications, and allergies reviewed. Attestation: This PAT evaluation 09/09/2021. Airway Exam: Mallampati: II Cervical ROM: FROM TM distance: normal Cardiovascular Exam: Rate: regular Rhythm: regular Pulmonary Exam: LCTA, bilat EENT Exam: trachea midline Dental Exam: Appears intact Current state: Patient's current state is cooperative. Anesthesia Plan ASA 3 My patient is approved for the Anesthesia Controlled Medication protocol when under care of a RUNNER OUT Planned anesthesia: General Team communication plan: LMA Induction: Induction: intravenous. Postoperative Plan: Postoperative administration opioids intended. Informed Consent: Discussed plan with RUNNER OUT. Anesthesia plan and risks discussed with patient. Consent and Attending signature: I and/or my designee have discussed the anesthesia plan, benefits, possible alternatives, parental presence at time of induction (if indicated), and clinically relevant risks that may include dental injury, unintentional awareness, and/or other complications. The patient and/or parent/legal guardian understand, and agree to proceed. All questions answered. ARY HISTORIAN documented in this encounter Plan of Treatment Not on file documented as of this encounter Procedures Procedure Name Priority Date/Time Associated Diagnosis Comments MA AN PROCEDURE PLACEHOLDER Routine 09/09/2021 10:11 AM LIBRARY HISTORIAN MA AN ELECTIVE SUPRAGLOTTIC AIRWAY Routine 09/09/2021 10:11 AM LIBRARY HISTORIAN documented in this encounter Results * MA AN ELECTIVE SUPRAGLOTTIC AIRWAY, MA AN PROCEDURE PLACEHOLDER (09/09/2021 10:11 AM LIBRARY HISTORIAN) Narrative Stephanie Gray CRNA - 09/09/2021 10:11 AM LIBRARY HISTORIAN Stephanie Gray CRNA ? 09/09/2021 10:27 AM Airway Patient location: OR Urgency: elective Date/time: 09/09/2021 10:11 AM Indications for airway management: anesthesia Difficult airway: no Staff: Supervising provider: Zeina Finch MD Placed by: RUNNER OUT: Stephanie Gray CRNA Emergent airway documentation: Risks and benefits discussed: yes Consent obtained: yes Consent given by: patient Airway prep: Preoxygenated: yes Patient position: sniffing Mask difficulty assessment: 0 - not attempted Spontaneous ventilation during airway: absent Sedation level during airway: deep Final airway details: Final airway type: supraglottic airway Final supraglottic airway: classic SGA size: 4 Number of attempts: 1 Additional comments: Atraumatic, no change in dentition. Zeina Finch MD ANESTHESIA ORDERABLES Fin al Result documented in this encounter Visit Diagnoses Not on filedocumented in this encounter Administered Medications Inactive Administered Medications - up to 3 most recent administrations Medication Order MAR Action Action Date Dose Rate Site ceFAZolin (ANCEF) 2,000 mg/20 mL in sterile water (premix) 2,000 mg 2,000 mg, intravenous, at 400 mL/hr, Administer over 3 Minutes, Once, On Wed09/09/21 at 0845, For 1 dose, Pre-Op, Administer within 60 minutes of incision., Indications: Prophylaxis, SurgicalIndications:Prophylaxis , Surgical Given 09/09/2021 10:12 AM LIBRARY HISTORIAN 2,000 mg dexAMETHasone (DECADRON) 4 mg/mL injection intravenous, Administer over 2 Minutes, As needed, Starting on Wed09/09/21 at 1017, Anesthesia Intra-op Given 09/09/2021 10:17 AM LIBRARY HISTORIAN 4 mg fentaNYL (SUBLIMAZE) preservative free injection intravenous, As needed, Starting on Wed09/09/21 at 1006, Anesthesia Intra-op Given 09/09/2021 10:22 AM LIBRARY HISTORIAN 25 mcg Given 09/09/2021 10:09 AM LIBRARY HISTORIAN 25 mcg Given 09/09/2021 10:06 AM LIBRARY HISTORIAN 50 mcg Lactated Ringer's (LR) infusion 30 mL/hr, intravenous, Continuous, Starting on Wed09/09/21 at 0845, Pre-Op Restarted 09/09/2021 10:06 AM LIBRARY HISTORIAN New Bag 09/09/2021 8:34 AM LIBRARY HISTORIAN 30 mL/hr 30 mL/hr lidocaine (cardiac) (XYLOCAINE) preservative free injection intravenous, As needed, Starting on Wed09/09/21 at 1009, Anesthesia Intra-op, Indications: Ventricular ArrhythmiasIndications:Ventricular Arrhythmias Given 09/09/2021 10:09 AM LIBRARY HISTORIAN 80 mg ondansetron (ZOFRAN) injection intravenous, Administer over 2 Minutes, As needed, Starting on Wed09/09/21 at 1017, Anesthesia Intra-op Given 09/09/2021 10:17 AM LIBRARY HISTORIAN 4 mg propofoL (DIPRIVAN) 10 mg/mL IV intravenous, As needed, Starting on Wed09/09/21 at 1009, Anesthesia Intra-op Given 09/09/2021 10:12 AM LIBRARY HISTORIAN 20 mg Given 09/09/2021 10:09 AM LIBRARY HISTORIAN 180 mg documented in this encounter Care Teams Continuous Mining Machine Lode Miner Relationship Specialty Start Date End Date Lillian Adam MD [address] [address] PCP - General Internal Medicine 12/25/20 Tommy Brownlee MD [address] [address] Referring Physician Obstetrics and Gynecology 01/20/21 documented as of this encounter
--- OUTSIDE RECORDS SUMMARY | 2024-09-19 04:37 | XMS_ITS | Encounter Summary ---
Author Organization [facility] Address [address] [address] Care Team Providers Care Tax Assistant Name Role Phone Lillian Adam MD Primary Care Provider [phone] Tommy Brownlee MD Unavailable [phone] Reason for Referral * Diagnostic Imaging (Routine) - Closed Specialty Diagnoses / Procedures Referred By Zeny shaw Referred To Contact Diagnoses Right wrist pain Procedures XR Wrist Right 3 (Standard) [place] [address] [place] [address] Phone: tel: fax: [facility] [address] [place] [phone] Referral ID Status Reason Start Date Expiration Date Visits Re quested Visits Authorized [id number] Closed 08/05/2021 09/04/2022 1 1 ERVATOR ARTIFACTS Reason for Visit * Reason Comments Pain * Consultation (Routine) - Closed Specialty Diagnoses / Procedures Referred By Zeny shaw Referred To Contact Orthopedic Surgery Diagnoses Carpal tunnel syndrome of right wrist Localized swelling, mass, or lump of upper extremity, bilateral Neck pain Radiculopathy, cervical Acute pain of right shoulder Median nerve compression Lillian Adam MD [address] [address] Phone: tel: fax: Rashaad Murcia MD [address] [place] [address] [address] [place] [address] Phone: tel: fax: Referral ID Status Reason Start Date Expiration Date V isits Requested Visits Authorized [id number] Closed Specialty Services Required 07/16/2021 08/15/2022 1 1 Encounter Details Date Type Department Care Team (Late st Contact Info) Description 08/18/2021 12:15 PM CONSERVATOR ARTIFACTS Office Visit [facility] Hand Surgery [address] [facility] [address] [place] [address] Rashaad Murcia MD [address] [place] [address] [address] [place] [id number] Right wrist pain (Primary Dx); Carpal tunnel syndrome of right wrist; Localized swelling, mass, or lump of upper extremity, bilateral; Neck pain; Radiculopathy, cervical; Acute pain of right shoulder; Median nerve compression Social History Tobacco Use Types Packs/Day Years [...] on file Legal Sex Female 8:38 PM CONSERVATOR ARTIFACTS Gender Identity Not on file Sexual Orientation Not on file documented as of this encounter Progress Notes * Rashaad Murcia MD - 08/18/2021 12:15 PM CST Images from the original note were not included. Patient ID: Dominique Manzano is a 56 y.o. female. Visit Date: 08/18/2021 Chief Complaint: Bilateral right worse than left hand pain and paresthesias HPI: This is a 56-year-old female who comes in today with of very long history of pain paresthesias diminished dexterity and insomnia related to her 10/10 pain after not responding to brace management [id number] medications and lifestyle changes. She seen in consultation from Dr. Adam after failing conservative management. She reports no fevers or chills no feeling of instability or modifying factors otherwise. She does report some diminished dexterity on the right and dropping items Review of Systems Constitutional: Negative for chills. HENT: Negative for congestion. Respiratory: Negative for cough. Neurological: Negative for seizures. There were no vitals taken for this visit. Physical Exam: Her gait is within normal limits. Her mood and affect are appropriate. She is well nourished. She is alert and oriented to time and place. Her bilateral wrist range of motion motor strength stabilityis within normal limits both hands warm to the touch her light touch grossly intact in both hands good perfusion of both hands. She has a positive carpal tunnel compression test on the right negativeon the left her abductor pollicis brevis strength on the right is 4/5 compared to 5/5 on the left. Xray / Imaging: AP lateral and oblique x-rays of the right wrist show no acute pathology and an EMG ordered by her medical team after failed conservative management does show carpal tunnel syndrome on the right 1. Right wrist pain 2. Carpal tunnel syndrome of right wrist 3. Localized swelling, mass, or lump of upper extremity, bilateral 4. Neck pain 5. Radiculopathy, cervical 6. Acute pain of right shoulder 7. Median nerve compression PLAN: Went over her treatment options in detail. With her weakness in debilitating diminished dexterity and symptoms we have decided to proceed with a right-sided carpal tunnel release and she would like to have this done under a general anesthetic and not a local anesthetic. Procedures ERVATOR ARTIFACTS documented in this encounter Plan of Treatment Not on file documented as of this encounter Procedures Procedure Name Priority Date/Time Associated Diagnosis Comments XR WRIST RIGHT 3 OR MORE VIEWS Schedule Routine, Read Routine (OP Routine) 08/18/2021 12:21 PM CONSERVATOR ARTIFACTS Right wrist pain documented in this encounter Results * XR Wrist Right 3 (Standard) (08/18/2021 12:21 PM CONSERVATOR ARTIFACTS) Anatomical Region Laterality Modality Upper Extremities, Wrist Right Compute d Radiography 08/20/2021 12:1 0 PM CONSERVATOR ARTIFACTS Narrative 08/20/2021 12:10 PM CONSERVATOR ARTIFACTS EXAM DESCRIPTION: ?? XR WRIST RIGHT 3 OR MORE VIEWS REASON FOR STUDY: ?? Right wrist pain TECHNIQUE: ?? Frontal, lateral, and oblique ??radiographic views acquired of the right wrist. COMPARISON: ?? None FINDINGS: BONES/JOINTS: ?? No acute fracture, malalignment or osseous abnormalities. ? Joint spaces are maintained. SOFT TISSUES: ?? Unremarkable. OTHER: ?? No other significant finding. IMPRESSION: ??No acute osseous abnormality. THIS IS AN ELECTRONICALLY VERIFIED FINAL REPORT 08/20/2021 12:10 PM - Electronically signed by ??Rashaad Murcia D: ??08/20/2021 12:10 PM T: Report ID: [id number] Reading Location: ??[place] [address] Procedure Note Rashaad Murcia MD - 08/20/2021 EXAM DESCRIPTION: XR WRIST RIGHT 3 OR MORE VIEWS REASON FOR STUDY: Right wrist pain TECHNIQUE: Frontal, lateral, and oblique radiographic views acquired ofthe right wrist. COMPARISON: None FINDINGS: BONES/JOINTS: No acute fracture, malalignment or osseous abnormalities. Joint spaces are maintained. SOFT TISSUES: Unremarkable. OTHER: No other significant finding. IMPRESSION: No acute osseous abnormality. THIS IS AN ELECTRONICALLY VERIFIED FINAL REPORT 08/20/2021 12:10 PM - Electronically signed by Rashaad Murcia T: Report ID: [id number] Reading Location: [place] [address] Rashaad Murcia MD IMG XR PROCEDURES Final Result documented in this encounter Visit Diagnoses Diagnosis Right wrist pain- Primary Pain in joint, forearm Carpal tunnel syndrome of right wrist Localized swelling, mass, or lump of upper extremity, bilateral Neck pain Cervicalgia Radiculopathy, cervical Brachial neuritis or radiculitis nos Acute pain of right shoulder Median nerve compression Carpal tunnel syndrome documented in this encounter Orders Outpatient Referral Count Last Ordered Date Fir st Ordered Date AMB REFERRAL TO ORTHOPEDIC SURGERY 1 2020 documented in this encounter Care Teams Tax Assistant Relationship Specialty Start Date End Date Lillian Adam MD [address] [facility] [address] [place] [address] PCP - General Internal Medicine 12/25/20 Tommy Brownlee MD [address] [facility] [address] [facility] [address] [place] [address] Referring Physician Obstetrics and Gynecology 01/20/21 documented as of this encounter
--- OUTSIDE RECORDS SUMMARY | 2024-09-19 04:37 | XMS_ITS | Encounter Summary ---
Author Organization [facility] Address [address] [address] Care Team Providers Care Java Manager Name Role Phone Lillian Adam MD Primary Care Provider + [phone] Tommy Brownlee MD Unavailable [phone] Encounter Details Date Type Department Care Team (Late st Contact Info) Description 09/05/2021 Orders Only [facility] Testing Site - [place], [place] [address] [place] [id number] Rashaad Miller MD [facility] [address] [address] Pre-procedure lab exam (Primary Dx) Social History Tobacco Use Types Packs/Day Years Used Date Smoking Tobacco: Never Smokeless Tobacco: Never AUDIT-C Answer Date Recorded Q1: How often do you have a drink containing alc ohol? 2-4 times a month 08/28/2021 Q2: How many drinks containi ng alcohol do you have on a typical day when you are drinking? 1 or 2 08/28/2021 Q3: How often do you have si x or more drinks on one occasion? Never 08/28/2021 PHQ-2 Answer Date Recorded PHQ-2 Total Score (If total score is 3 or more points, staff should administer the PHQ-9) 0 01/20/2021 Comments No Sex and Gender Information Value Date Recorded Sex Assigned at Not on file Legal Sex Female 8:38 PM LEGAL DOCUMENT ASSISTANT Gender Identity Not on file Sexual Orientation Not on file documented as of this encounter Progress Notes * Luis Carlos Guevara - 09/05/2021 12:05 PM CST Pre-procedure ?? Date of Px/chemo/treatment/placement/transfer 09/09/2021 ?? Testing site patient will be sent to: [place], [place] ?? Testing: COVID-19 RNA ?? Is this the first COVID-19 test for this patient? Unknown ?? Does the patient currently work in a healthcare facility with direct patient contact? No ?? Is the patient a resident of a congregate care or living setting? No ?? ? No ?? Date testing requested: 09/06/2021 ?? Testing: Coronavirus RNA ?? Please select the performing region: [facility] ?? Referral Notes L DOCUMENT ASSISTANT documented in this encounter Plan of Treatment Not on file documented as of this encounter Results * COVID-19 Coronavirus RNA Nasopharyngeal (09/06/2021 11:48 AM LEGAL DOCUMENT ASSISTANT) COVID-19 RNA Not Detected [facility] Comment: Interpretive Data Synonyms for this test include: PCR and NAAT . ??Testing performed by the [facility] Molecular Infectious Disease Laboratory. The 2019-Novel Coronavirus Assay (COVID-19) Real Time RT-PCR assay is for in vitro diagnostic use under FDA emergency use authorization only. A negative RT-PCR result does not preclude infection with COVID-19 and should not be used as the sole basis for treatment or other patient management decisions. ??Additional sample types have been validated according to CLIA regulations. ?? Current Interpretive Data was last revised on October 24, 2020. First COVID-19 test? Unknown [facility] Employeed in healthcare? No [facility] status? No [facility] Group care resident? No [facility] Hospitalized? Unknown [facility] Is patient in ICU? Unknown [facility] Symptomatic as defined by CDC? No [facility] Nasopharyngeal 09/06/2021 11 :48 AM LEGAL DOCUMENT ASSISTANT 09/06/2021 6:18 PM LEGAL DOCUMENT ASSISTANT Narrative PORFIRIO STRATTON - 09/07/2021 3:01 AM LEGAL DOCUMENT ASSISTANT What is the reason for testing?->Screening prior to scheduled procedure or surgery (batch) us Rashaad Miller MD LAB MICROBIOLOGY - GENER AL ORDERABLES Final Result [facility] [address] [facility] Department [place] [address] documented in this encounter Visit Diagnoses Diagnosis Pre-procedure lab exam- Primary Pre-procedural laboratory examination Pre-procedure lab exam Pre-procedural laboratory examination documented in this encounter Care Teams Java Manager Relationship Specialty Start Date End Date Lillian Adam MD [address] [place] [id number] PCP - General Internal Medicine 12/25/20 Tommy Brownlee MD [address] [place] [address] Referring Physician Obstetrics and Gynecology 01/20/21 documented as of this encounter
--- OUTSIDE RECORDS SUMMARY | 2024-09-19 04:37 | XMS_ITS | Encounter Summary ---
Author Organization [facility] Address [address] [facility] [address] [place] [address] Care Team Providers Care Trumpet Teacher Name Role Phone Lillian Adam MD Primary Care Provider + [phone] Tommy Brownlee MD Unavailable [phone] Encounter Details Date Type Department Care Team (Late st Contact Info) Description 08/27/2021 Telephone [facility] Hand Surgery [address] [facility] [address] [place] [address] Rashaad Miller MD [address] [address] Social History Tobacco Use Types Packs/Day Years [...] on file Legal Sex Female 8:38 PM FORM BUILDER Gender Identity Not on file Sexual Orientation Not on file documented as of this encounter Miscellaneous Notes * Telephone Encounter - Ginna Merino MA - 08/28/2021 9:04 AM CST Spoke with patient, 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 BUILDER documented in this encounter Plan of Treatment Not on file documented as of this encounter Visit Diagnoses Not on filedocumented in this encounter Care Teams Trumpet Teacher Relationship Specialty Start Date End Date Lillian Adam MD [address] [place] [id number] PCP - General Internal Medicine 12/25/20 Tommy Brownlee MD [address] [place] [address] Referring Physician Obstetrics and Gynecology 01/20/21 documented as of this encounter
--- OUTSIDE RECORDS SUMMARY | 2024-09-19 04:37 | XMS_ITS | Encounter Summary ---
Author Organization [facility] Address [address] [facility] [address] [place] [address] Care Team Providers Care Asphalt Dauber Name Role Phone Lillian Adam MD Primary Care Provider + [phone] Tommy Brownlee MD Unavailable [phone] Reason for Visit * Reason Onset Date Comments RTW SLIP 08/21/2021 Encounter Details Date Type Department Care Team (Late st Contact Info) Description 08/21/2021 Telephone [facility] Orthopedics and Sports Medicine [address] [facility] [address] [place] [address] Rashaad Miller MD [address] [place] [address] [address] [place] [address] RTW SLIP Social History Tobacco Use Types Packs/Day Years [...] on file Legal Sex Female 8:38 PM CODING SPECIALIST HOME HEALTH Gender Identity Not on file Sexual Orientation Not on file documented as of this encounter Miscellaneous Notes * Telephone Encounter - Martha Caraballo MA - 08/22/2021 11:19 AM CODING SPECIALIST HOME HEALTH Note written. Pick will pick up operator from [place]. NG SPECIALIST HOME HEALTH * Telephone Encounter - Deborah Clark - 08/21/2021 9:57 AM CST Patient is scheduled for surgery on 09/09/21 and will need a work slip for time off and please include that her return to work will be determined at her follow up 09/22/20. NG SPECIALIST HOME HEALTH documented in this encounter Plan of Treatment Not on file documented as of this encounter Visit Diagnoses Not on filedocumented in this encounter Care Teams Asphalt Dauber Relationship Specialty Start Date End Date Lillian Adam MD [address] [place] [address] PCP - General Internal Medicine 12/25/20 Tommy Brownlee MD [address] [place] [address] Referring Physician Obstetrics and Gynecology 01/20/21 documented as of this encounter
--- OUTSIDE RECORDS SUMMARY | 2024-09-19 04:37 | XMS_ITS | Encounter Summary ---
Author Organization [facility] Address [address] [facility] [address] [place] [address] Care Team Providers Care Cooler Man Name Role Phone Lillian Adam MD Primary Care Provider [phone] Tommy Brownlee MD Unavailable [phone] Encounter Details Date Type Department Care Team (Late st Contact Info) Description 08/04/2021 Telephone [facility] Primary Care [address] [facility] [address] [place] [phone] Vilma Mcgrath MA Social History Tobacco Use Types Packs/Day Years [...] on file Legal Sex Female 8:38 PM BACK GRINDER Gender Identity Not on file Sexual Orientation Not on file documented as of this encounter Miscellaneous Notes * Telephone Encounter - Vilma Mcgrath MA - 08/05/2021 8:42 AM CST Order placed per pt she will go to [facility] in [place] GRINDER * Telephone Encounter - Vilma Mcgrath MA - 08/04/2021 3:56 PM CST ----- Message from Dominique Manzano sent at 08/04/2021 3:52 PM BACK GRINDER ----- Regarding: Nerve Conduction Study Quentin Adam. I???m scheduled to see Dr. Miller on August 18. Per his office, I will need a nerve conduction study. I???m trying to get this scheduled in advance of my appointment with him, so we can have rory productive visit. His office advised that my primary care doctor is able to order the nerve conduction study. Would you be willing to order this study? She also advised the [facility] facility is booked until August? Are there any other facilities that offer the nerve conduction test? If so, I would like to explore those options and be able to make an appointment with the first available facility. Thanks, Dominique Manzano GRINDER documented in this encounter Plan of Treatment Not on file documented as of this encounter Visit Diagnoses Diagnosis Carpal tunnel syndrome of right wrist- Primary Median nerve compression Carpal tunnel syndrome documented in this encounter Care Teams Cooler Man Relationship Specialty Start Date End Date Lillian Adam MD [facility] [address] PCP - General Internal Medicine 12/25/20 Tommy Brownlee MD [address] [address] Referring Physician Obstetrics and Gynecology 01/20/21 documented as of this encounter
--- OUTSIDE RECORDS SUMMARY | 2024-09-19 04:37 | XMS_ITS | Encounter Summary ---
Author Organization [facility] Address [address] [address] Care Team Providers Care Artists' Model Name Role Phone Aakash Garcia MD Primary Care Provider [phone] Tommy Brownlee MD Unavailable [phone] Reason for Referral * Consultation (Routine) - Closed Specialty Diagnoses / Procedures Referred By Zeny shaw Referred To Contact Orthopedic Surgery Diagnoses Carpal tunnel syndrome of right wrist Localized swelling, mass, or lump of upper extremity, bilateral Neck pain Radiculopathy, cervical Acute pain of right shoulder Median nerve compression Aakash Garcia MD [address] [place] [address] Phone: tel: fax: Rashaad Miller MD [address] [place] [address] Phone: tel: fax: Referral ID Status Reason Start Date Expiration Date V isits Requested Visits Authorized [id number] Closed Specialty Services Required 07/16/2021 08/15/2022 1 1 Question Answer Please select the performing region: [facility] [[id number]] Please select the performing department: [facility] [[id number]] # of visits: 1 Comments Right hand and forearm median nerve like parasthesias worse with cross body adduction 1month after began weight lifting. rigth hand swelling and forarm hypertrophy. Tender right trapezius. (mostly heavy bench pressing) * MRI/CAT/PET Scan (Routine) - Closed Specialty Diagnoses / Procedures Referred By Contac t Referred To Contact Radiology Diagnoses Localized swelling, mass, or lump of upper extremity, bilateral Neck pain Abnormal CXR SOB (shortness of breath) Cough Procedures CT Chest W Contrast CT Chest W Contrast Aakash Garcia MD [address] [place] [address] Phone: tel: fax: [address] [phone] Referral ID Status Reason Start Date Expiration Date Visits Re quested Visits Authorized [id number] Closed 07/17/2021 08/31/2021 1 1 * Diagnostic Imaging (Routine) - Closed Specialty Diagnoses / Procedures Referred By Contac t Referred To Contact Diagnoses Localized swelling, mass, or lump of upper extremity, bilateral Procedures US Vein Duplex Upper Extremity Bilateral Complete Aakash Garcia MD [address] [place] [address] Phone: tel: fax: [address] [phone] Referral ID Status Reason Start Date Expiration Date Visits Re quested Visits Authorized [id number] Closed 07/16/2021 08/15/2022 1 1 * MRI/CAT/PET Scan (Routine) - Closed Specialty Diagnoses / Procedures Referred By Contac t Referred To Contact Radiology Diagnoses Localized swelling, mass, or lump of upper extremity, bilateral Neck pain Procedures CT Neck Soft Tissue W Contrast Aakash Garcia MD [address] [place] [address] Phone: tel: fax: [address] [phone] Referral ID Status Reason Start Date Expiration Date Visits Re quested Visits Authorized [id number] Closed 07/18/2021 08/15/2022 1 1 * Diagnostic Imaging (Routine) - Closed Specialty Diagnoses / Procedures Referred By Contac t Referred To Contact Diagnoses Localized swelling, mass, or lump of upper extremity, bilateral Neck pain Acute pain of right shoulder Procedures XR Shoulder Right 2 or More Views Aakash Garcia MD [address] [place] [address] Phone: tel: fax: [address] [phone] Referral ID Status Reason Start Date Expiration Date Visits Re quested Visits Authorized [id number] Closed 07/16/2021 08/15/2022 1 1 Reason for Visit * Reason Comments Numbness Rt hand and arm numb ness x 2 weeks Annual Exam Encounter Details Date Type Department Care Team (Late st Contact Info) Description 07/16/2021 4:30 PM CDT Office Visit [facility] Primary Care [address] [place] [phone] Aakash Garcia MD [address] [place] [phone] Physical exam, annual (Primary Dx); Carpal tunnel syndrome of right wrist; Localized swelling, mass, or lump of upper extremity, bilateral; Neck pain; Radiculopathy, cervical; Abnormal CXR; SOB (shortness of breath); Cough; Acute pain of right shoulder; HTN, goal below 140/90; Vitamin D deficiency (17); Median nerve compression Social History Tobacco Use [...] on file 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 Gender Identity Not on file Sexual Orientation Not on file documented as of this encounter Last Filed Vital Signs Vital Sign Reading Time Taken Comments Blood Pressure 128/82 07/16/2021 4:03 PM CDT Pulse 71 07/16/2021 4:03 PM CDT Temperature 36.2 ??C (97.2 ??F) 07/16/2021 4:03 PM CD T Respiratory Rate 18 07/16/2021 4:03 PM CDT Oxygen Saturation 99% 07/16/2021 4:03 PM CDT Inhaled Oxygen Concentration - - Weight 108 kg (238 lb) 07/16/2021 4:03 PM CDT Height 157.5 cm (5' 2 ) 07/16/2021 4:03 PM CDT Body Mass Index 43.53 07/16/2021 4:03 PM CDT documented in this encounter Ordered Prescriptions Prescription Sig Dispense Quantity Refills Last Filled Start Date End Date gabapentin (NEURONTIN) 100 mg capsule Take 1 capsule (100 mg total) by mouth 3 (three) times a day 90 capsule 11 07/30/2021 fluconazole (DIFLUCAN) 150 mg tablet Take 1 tablet (150 mg total) by mouth as directed Take one tab now. Repeat in 7 days if symptoms persist. 2 tablet 07/16/2021 1 levoFLOXacin (LEVAQUIN) 500 mg tablet Take 1 tablet (500 mg total) by mouth daily for 10 days 10 tablet 07/16/2021 1 predniSONE (DELTASONE) 20 mg tabletIndications: Anti-inflammatory, Radiculopathy 3tabs for 5days, then 2 tabs for 5day,then 1tab for 5days 30 tablet 07/16/2021 1 documented in this encounter Progress Notes * Aakash Garcia MD - 07/16/2021 4:30 PM CDT Images from the original note were not included. EXAM Patient ID: Jasmyne Manzano is a 56 y.o. female. Chief Complaint. Chief Complaint Patient presents with ??? Numbness Rt hand and arm numbness x 2 weeks ??? Annual Exam Patient Care Team: Aakash Garcia MD as PCP - General (Internal Medicine) Tommy Brownlee MD as Referring Physician (Obstetrics and Gynecology) [facility]. Patient is a 56 y.o. female here for A physical and pain in right arm. Diagnosed with carpal tunnel a month ago but pain has progressed up arm and conservating management not helping. trtied nsaids Started weight lifting 2mo prior. Pain began about a month ago and now worse in past 2 weeks. Review of Systems: History obtained from patient No Nausea, Vomiting, ENT sx, Fever, Chills, Numbing, Tingling, Urinary sx, Weakness, constipation or diarrhea Review of Systems Past Social,Medical,family Hx: Past Medical History: Diagnosis Date ? ? Carotid atherosclerosis (<15% b/l) 01/20/2021 ??? Exercise-induced asthma ??? HLD (LDL 138) 02/25/2021 discussed role of statins if diabetic. otherweise diet/exercise History reviewed. No pertinent surgical history. Social History Tobacco Use ??? Smoking status: Never Smoker ??? Smokeless tobacco: Never Used Substance Use Topics ??? Alcohol use: Not on file History reviewed. No pertinent family history. Current Medications and Allergies: No Known Allergies Outpatient Encounter Medications as of 07/16/2021 Medication Sig Dispense Refill ??? ergocalciferol (VITAMIN D) 50,000 unit capsule TAKE 1 CAPSULE BY MOUTH ONE TIME PER WEEK 12 capsule 0 ??? meloxicam (MOBIC) 7.5 mg tablet Take 1 tablet (7.5 mg total) by mouth daily 30 tablet 1 ??? fluconazole (DIFLUCAN) 150 mg tablet Take 1 tablet (150 mg total) by mouth as directed Take onetab now. Repeat in 7 days if symptoms persist. 2 tablet 0 ??? levoFLOXacin (LEVAQUIN) 500 mg tablet Take 1 tablet (500 mg total) by mouth daily for 10 days 10 tablet 0 ??? predniSONE (DELTASONE) 20 mg tablet 3tabs for 5days, then 2 tabs for 5day,then 1tab for 5days 30 tablet 0 No facility-administered encounter medications on file as of 07/16/2021. Physical Exam: Constitutional: Body mass index is 43.53 kg/m??. Vitals: 07/16/21 1603 BP: 128/82 Pulse: 71 Resp: 18 Temp: 36.2 ??C (97.2 ??F) SpO2: 99% Weight: 108 kg (238 lb) Height: 157.5 cm (5' 2 ) Physical Exam Negative painful arc.has full ROM (neg apley scratch test). Neg supraspinatus. Pain with internal rotation or right arm. Pain with Cross-arm test- no pain over AC joint nor bursa. Tenderness over trapezius and posterior shoulder above spine. Tenderness and muscle hypertrophy of forarm. Negative spurling test Negative tinnel and phalen Lungs-minimal crackles on expiration Rest of exam (CV,Abd,legs,heent normal) Results/Data: Old records were reviewed. Old records were not requested. CHEMISTRY 07/07/1390102/07/21 1027 03/15/21 1140 Sodium 139 140 141 Potassium, pl -- -- 4.2 Potassium 3.8 4.2 -- Chloride 103 104 104 CO2 -- -- 30 Carbon Dioxide 28 28 -- BUN 8 10 -- Glucose 96 110* 99 Creatinine 0.8 0.7 0.86 Calcium 8.9 9.4 9.4 Albumin 3.9 4.3 4.0 Total Protein 7.2 7.0 -- Kidney Disease Stage > 90 >90 -- EGFR -- -- 89 eGFR NON-AFR. CHILEAN -- -- 77 AST 14 21 22 ALT 9 16 -- ALT (SGPT) -- -- 18 Alk phos -- -- 117 119 Alkaline Phosphatase 86 142* -- Bilirubin, total -- -- 0.5 Total Bilirubin 0.7 0.7 -- GFR 07/07/13 0902 02/07/21 1027 03/15/21 1140 Kidney Disease Stage > 90 >90 -- EGFR -- -- 89 eGFR NON-AFR. CHILEAN -- -- 77 03/15/21 1140 Phosphorus, sr 3.5 LIPIDS 02/07/21 1027 Cholesterol 213* LDL Cholesterol, Calc 138* HDL Cholesterol 57 Cholesterol/HDL Ratio 3.7 Triglycerides 89 HEMATOLOGY 07/07/1390102/07/21 1027 WBC 5.6 5.9 RBC 4.22 4.45 Hemoglobin 12.2 13.0 MCV 87.2 87.9 MCH 28.9 29.2 Plt Count 266 292 07/07/1302 03/15/21 1140 Iron 83 -- TIBC 307 -- Transferrin % Sat 27 -- Ferritin 43.8 -- ESR 32* -- Vitamin B12 307 354 Endocrinology THYROID 07/07/1390102/07/21 1027 TSH 1.05 1.24 Free T3 -- 4.67 Free T4 -- 1.21 VitD/Calcium/Bone 07/07/1390102/07/21 1027 03/15/21 1140 25-OH Vit D -- -- 13* 25-OH Vitamin D Total -- 17* -- Calcium 8.9 9.4 9.4 Calcium, Ionized -- -- 5.3 03/15/21 1140 Parathyroid hormone, intact 51 PCOS/ VITAMINS/MINERALS 03/15/21 1140 Vitamin B12 354 GI 07/07/1390102/07/21 1027 03/15/21 1140 AST 14 21 22 ALT (SGPT) -- -- 18 ALT 9 16 -- Alk phos -- -- 117 119 Alkaline Phosphatase 86 142* -- Interpretation -- -- CANCELED Amylase -- 38 -- Lipase -- 17 -- INFLAMATION 07/07/13901 ESR 32* Ferritin 43.8 DM 07/07/1390102/07/21 1027 Hemoglobin 12.2 13.0 Hct 36.8 39.1 Rheumatologic 07/07/13901 ESR 32* Ferritin 43.8 Transferrin % Sat 27 07/07/13 09 CUCO Screen None Detected Lateral 2 Views Patient Name: ALAINAJASMYNE Ordering Dr: Aakash Garcia MD D.O.B: 1965 Exam Date: 02/07/21 0934 Age: 55 Sex: Female MR#: [id number] Loc: RADIOLOGY REPORT Order #[id number] Radiology Chest 2 Views Signed EXAM DESCRIPTION: Chest 2 Views REASON FOR STUDY: yearly check up seasonal allergies w/cough, denies sob/htn/smoking, h/o exercise induced asthma TECHNIQUE: Frontal and lateral radiographic views of the chest acquired. COMPARISON: None FINDINGS: LUNGS/PLEURA: No focal consolidation, pneumothorax, or pleural effusion. Calcification projects over the right lung apex favored to relate to a calcified granuloma but only seen on the frontal view. HEART/MEDIASTINUM: Normal heart size. Normal hilar and mediastinal contours. HARDWARE/LINES/TUBES: None. BONES: No acute findings. IMPRESSION: No acute cardiopulmonary abnormality. NITIN T: Report ID: [id number] US Abdomen Limited Patient Name: JASMYNE MANZANO Ordering Dr: Aakash Garcia MD DRamanORamanB: 1965 Exam Date: 02/07/2110 Age: 55 Sex: Female MR#: [id number] Loc: RADIOLOGY REPORT Order #[id number] Ultrasound US Abdomen/Lmt Exam Spec Organ Signed EXAM DESCRIPTION: US Abdomen/Lmt Exam Spec Organ REASON FOR STUDY: Epigastric abdominal pain on physical exam 05/19/2021 TECHNIQUE: Ultrasound of the right upper quadrant of the abdomen was performed with grayscale and color doppler. COMPARISON: None FINDINGS: LIVER: The liver is echogenic consistent with fatty infiltration. No focal liver lesions identified the main portal vein is patent with a normal direction of flow. GALLBLADDER: The gallbladder is normal in appearance. There is no evidence of cholelithiasis, gallbladder wall thickening, or focal pericholecystic fluid. BILIARY: There is no intrahepatic or extrahepatic biliary ductal dilation. The common bile duct measures 3 mm in diameter. RIGHT KIDNEY: The right kidney measures 8.6 cm in length. Right renal cortical thickness and echogenicity are normal. There is no right hydronephrosis. PANCREAS: The pancreas is unremarkable on limited evaluation. Portions of the pancreas are obscured by bowel gas. IMPRESSION: 1. Hepatic steatosis. 2. Unremarkable sonographic evaluation of the gallbladder. NITIN T: Report ID: [id number] Reading Location: [place] [address] No results found. No results found for: CBCAUTODIFF, CMP No results found for: CMP Problems,Assessment & Plan: x Diagnoses and all orders for this visit: Physical exam, annual (Z00.00) (Primary) - Vitamin D 25 hydroxy; Future - Comprehensive metabolic panel; Future Carpal tunnel syndrome of right wrist (G56.01) - Comprehensive metabolic panel; Future - Ambulatory referral to Orthopedic Surgery; Future Localized swelling, mass, or lump of upper extremity, bilateral (R22.33) - Vitamin D 25 hydroxy; Future - D-dimer, quantitative; Future - XR Shoulder Right 2 or More Views; Future - CT Neck Soft Tissue W Contrast; Future - US Vein Duplex Upper Extremity Bilateral Complete; Future - CT Cervical Spine WO Contrast; Future - CT Chest W Contrast; Future - Comprehensive metabolic panel; Future - Ambulatory referral to Orthopedic Surgery; Future Neck pain (M54.2) - Vitamin D 25 hydroxy; Future - D-dimer, quantitative; Future - XR Shoulder Right 2 or More Views; Future - CT Neck Soft Tissue W Contrast; Future - CT Cervical Spine WO Contrast; Future - CT Chest W Contrast; Future - Comprehensive metabolic panel; Future - Ambulatory referral to Orthopedic Surgery; Future Radiculopathy, cervical (M54.12) - Vitamin D 25 hydroxy; Future - D-dimer, quantitative; Future - CT Cervical Spine WO Contrast; Future - Comprehensive metabolic panel; Future - Ambulatory referral to Orthopedic Surgery; Future Abnormal CXR (R93.89) - Vitamin D 25 hydroxy; Future - D-dimer, quantitative; Future - CT Chest W Contrast; Future - Comprehensive metabolic panel; Future SOB (shortness of breath) (R06.02) - Vitamin D 25 hydroxy; Future - D-dimer, quantitative; Future - CT Chest W Contrast; Future - Comprehensive metabolic panel; Future Cough (R05.9) - Vitamin D 25 hydroxy; Future - D-dimer, quantitative; Future - CT Chest W Contrast; Future - Comprehensive metabolic panel; Future Acute pain of right shoulder (M25.511) - Vitamin D 25 hydroxy; Future - D-dimer, quantitative; Future - XR Shoulder Right 2 or More Views; Future - Comprehensive metabolic panel; Future - Ambulatory referral to Orthopedic Surgery; Future HTN, goal below 140/90 (I10) - Comprehensive metabolic panel; Future Vitamin D deficiency (17) (E55.9) - Comprehensive metabolic panel; Future Median nerve compression (G56.00) Comments: right thenar,1st adn second palmar digit parasthesias, worse with internal shoulder rotation Orders: - Ambulatory referral to Orthopedic Surgery; Future Other orders - predniSONE (DELTASONE) 20 mg tablet; 3tabs for 5days, then 2 tabs for 5day,then 1tab for 5days - levoFLOXacin (LEVAQUIN) 500 mg tablet; Take 1 tablet (500 mg total) by mouth daily for 10 days - fluconazole (DIFLUCAN) 150 mg tablet; Take 1 tablet (150 mg total) by mouth as directed Take one tab now. Repeat in 7 days if symptoms persist. - gabapentin (NEURONTIN) 100 mg capsule; Take 1 capsule (100 mg total) by mouth 3 (three) times a day Get images and start steroids over weekend for radicular pain. Refer to ortho R/o Upper lobe pneumonia with secondary DIPESH affecting shoulder dank with prior abnormal cxr showing calcification in right lung apex. Get CT chest. Take levaquin if not better with other measures overweakend. R/o DVT due to possible trauma from weightlifting. (check d-dimer) Doubt thoracic outlet syndrome Suspect probable suprascapular nerve/median nerve compression or cervical nerve root compression more C6-C7. Avoid weight lifting for now. May need to lay off for several months. Will refer to ortho Aakash Garcia MD There are no Patient Instructions on file for this visit. R INSPECTOR * Vilma Mcgrath MA - 07/16/2021 4:30 PM CDT Tried calling VM unable documented in this encounter Miscellaneous Notes * Addendum Note - Aakash Garcia MD - 07/16/2021 4:30 PM CDTAddended by: AAKASH GARCIA on: 07/30/2021 10:04 AM Modules accepted: Orders R INSPECTOR documented in this encounter Plan of Treatment Scheduled Referrals Name Type Priority Associated Diagnoses Orde r Schedule Ambulatory referral to Orthopedic Surgery Outpatient Referral Routine Carpal tunnel syndrome of right wrist Localized swelling, mass, or lump of upper extremity, bilateral Neck pain Radiculopathy, cervical Acute pain of right shoulder Median nerve compression Expected: 07/30/2021 (Approximate), Expires: 07/16/2022 documented as of this encounter Results * US Vein Duplex Upper Extremity Bilateral Complete (07/25/2021 10:06 AM CDT) Anatomical Region Laterality Modality Vascular Bilateral Ultrasound 07/25/2021 Narrative 07/26/2021 7:30 AM CDT [employer] Job ID: [id number] [employer] Document ID: [id number] Dictated date/time: [id number] BILATERAL UPPER EXTREMITY VENOUS DUPLEX REASON FOR [...] bilateral upper extremities. JOB ID/VF JOB ID: ??[id number] us Aakash Garcia MD IMG US PROCEDURES Final Resu lt * CT Neck Soft Tissue W Contrast (07/25/2021 9:10 AM CDT) Anatomical Region Laterality Modality Head and Neck N/A Computed Tomogra phy 07/25/2021 9:42 AM CDT Narrative 07/25/2021 9:51 AM CDT EXAM DESCRIPTION: ?? CT SOFT TISSUE NECK W CONTRAST REASON FOR STUDY: ?? Lymphadenopathy, neck, Brachial plexopathy, nontraumatic ?? Chronic cough and right shoulder pain x6 weeks ?? TECHNIQUE: ??Post IV contrast scanning from skull base through lung apices. ?? Reconstructed MPR images reviewed. All images stored on PACS. Automated exposure control was used as a dose optimization technique for this examination. CONTRAST TYPE/DOSE: ?? 100mL of IOVERSOL 350 MG IODINE/ML INTRAVENOUS SYRINGE injected via ??intravenous COMPARISON: ?? None available FINDINGS: SOFT TISSUE: ??No mass, edema or inflammatory change. ORAL CAVITY/FLOOR OF MOUTH, PHARYNX, LARYNX, HYPOPHARYNX: ??No abnormal findings. ??Asymmetry of the piriform sinuses is likely secondary to coapted mucosal surfaces, given lack of mass effect LYMPHADENOPATHY: ??No adenopathy. MAJOR SALIVARY GLANDS: ??No solid or cystic masses. ??No inflammatory changes. THYROID: ??Normal size. ??No nodules greater than 1 cm. VASCULATURE: ??No apparent critical stenosis or occlusion. INTRACRANIAL/SKULL BASE/INCLUDED ORBITS: ??Limited intracranial evaluation. No abnormal findings. PARANASAL SINUSES: ??Air-fluid level in the left maxillary sinus. CERVICAL SPINE: ??Mild multilevel degenerative changes are noted in the cervical spine without high-grade osseous spinal canal or neural foraminal stenosis. LUNG APICES: ??Calcified granuloma at the right lung apex. OTHER: ??No other significant finding. IMPRESSION: ?? 1. ??No mass or lymphadenopathy in the neck. 2. ??No findings to explain the patient's reported brachial plexopathy. ??If there is continued clinical concern for brachial plexopathy, cervical spine MRI/brachial plexus MRI is a more sensitive evaluation. 3. ??Air-fluid level in the left maxillary sinus, which can be seen in the setting of acute sinusitis. ??Please clinically correlate. THIS IS AN ELECTRONICALLY VERIFIED FINAL REPORT 07/25/2021 9:51 AM - Electronically signed by Frank Torres M.D. MZ D: ??07/25/2021 9:51 AM T: Report ID: [id number] Reading Location: ??[id number] Procedure Note Frank Torres MD - 07/25/2021 EXAM DESCRIPTION: CT SOFT TISSUE NECK W CONTRAST REASON FOR STUDY: Lymphadenopathy, neck, Brachial plexopathy,nontraumatic Chronic cough and right shoulder pain x6 weeks TECHNIQUE: Post IV contrast scanning from skull base through lung apices. Reconstructed MPR images reviewed. All images stored on PACS. Automated exposure control was used as a dose optimization technique for this examination. CONTRAST TYPE/DOSE: 100mL of IOVERSOL 350 MG IODINE/ML INTRAVENOUSSYRINGE injected via intravenous COMPARISON: None available FINDINGS: SOFT TISSUE: No mass, edema or inflammatory change. ORAL CAVITY/FLOOR OF MOUTH, PHARYNX, LARYNX, HYPOPHARYNX: No abnormal findings. Asymmetry of the piriform sinuses is likely secondary tocoapted mucosal surfaces, given lack of mass effect LYMPHADENOPATHY: No adenopathy. MAJOR SALIVARY GLANDS: No solid or cystic masses. No inflammatorychanges. THYROID: Normal size. No nodules greater than 1 cm. VASCULATURE: No apparent critical stenosis or occlusion. INTRACRANIAL/SKULL BASE/INCLUDED ORBITS: Limited intracranial evaluation.No abnormal findings. PARANASAL SINUSES: Air-fluid level in the left maxillary sinus. CERVICAL SPINE: Mild multilevel degenerative changes are noted in the cervical spine without high-grade osseous spinal canal or neural foraminal stenosis. LUNG APICES: Calcified granuloma at the right lung apex. OTHER: No other significant finding. IMPRESSION: 1. No mass or lymphadenopathy in the neck. 2. No findings to explain the patient's reported brachial plexopathy. If there is continued clinical concern for brachial plexopathy, cervicalspine MRI/brachial plexus MRI is a more sensitive evaluation. 3. Air-fluid level in the left maxillary sinus, which can be seen in the setting of acute sinusitis. Please clinically correlate. THIS IS AN ELECTRONICALLY VERIFIED FINAL REPORT 07/25/2021 9:51 AM - Electronically signed by Frank Torres M.D. MZ T: Report ID: [id number] Reading Location: [place] [address] Aakash Gacria MD IMG CT PROCEDURES Final Resu lt * CT Chest W Contrast (07/25/2021 9:05 AM CDT) Anatomical Region Laterality Modality Body N/A Computed Tomogra phy 07/25/2021 9:34 AM CDT Narrative 07/25/2021 9:42 AM CDT EXAM DESCRIPTION: ?? CT CHEST W CONTRAST REASON FOR STUDY: ??Right lung apex calcification. ??Right shoulder impingement with right supraclavicular pain. ?? TECHNIQUE: ??CT scan of the chest with intravenous contrast. Reconstructed coronal and sagittal MPR images reviewed. All images stored on PACS. Automated exposure control was used as a dose optimization technique for this examination. CONTRAST TYPE/DOSE: ?? 100mL of IOVERSOL 350 MG IODINE/ML INTRAVENOUS SYRINGE injected via ??intravenous COMPARISON: ?? Chest radiograph from 02/07/2021 FINDINGS: LUNGS: ??There is a calcified granuloma at the right lung apex no pneumonia or pulmonary edema. ??No suspicious pulmonary nodule. PLEURA: ??No effusion. No pneumothorax. MEDIASTINUM/ADELSO: ??Calcified hilar and mediastinal lymph nodes are compatible with old granulomatous disease. ??No lymphadenopathy. HEART: ??Heart size is normal with no pericardial effusion. VASCULATURE: ??No thoracic aortic aneurysm. AXILLA: ??No adenopathy. CHEST WALL: ??No masses. ??No subcutaneous air. HARDWARE/LINES/TUBES: ??None. UPPER ABDOMEN: ??Calcified splenic granulomas. MUSCULOSKELETAL: ??Posterior osteophyte or ossification of the posterior longitudinal ligament in the midthoracic spine at the level of T8 mildly narrows spinal canal. OTHER: ??No other significant abnormality. IMPRESSION: ?? 1. ??No acute findings in the chest. ??Clinically queried calcification in the right upper lobe is a calcified granuloma. THIS IS AN ELECTRONICALLY VERIFIED FINAL REPORT 07/25/2021 9:42 AM - Electronically signed by Frank DAVIES D: ??07/25/2021 9:42 AM T: Report ID: [id number] Reading Location: ??[id number] Procedure Note Frank Torres MD - 07/25/2021 EXAM DESCRIPTION: CT CHEST W CONTRAST REASON FOR STUDY: Right lung apex calcification. Right shoulderimpingement with right supraclavicular pain. TECHNIQUE: CT scan of the chest with intravenous contrast. Reconstructed coronal and sagittal MPR images reviewed. All images stored on PACS.Automated exposure control was used as a dose optimization technique for this examination. CONTRAST TYPE/DOSE: 100mL of IOVERSOL 350 MG IODINE/ML INTRAVENOUSSYRINGE injected via intravenous COMPARISON: Chest radiograph from 02/07/2021 FINDINGS: LUNGS: There is a calcified granuloma at the right lung apex no pneumoniaor pulmonary edema. No suspicious pulmonary nodule. PLEURA: No effusion. No pneumothorax. MEDIASTINUM/ADELSO: Calcified hilar and mediastinal lymph nodes arecompatible with old granulomatous disease. No lymphadenopathy. HEART: Heart size is normal with no pericardial effusion. VASCULATURE: No thoracic aortic aneurysm. AXILLA: No adenopathy. CHEST WALL: No masses. No subcutaneous air. HARDWARE/LINES/TUBES: None. UPPER ABDOMEN: Calcified splenic granulomas. 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 OTHER: No other significant abnormality. IMPRESSION: 1. No acute findings in the chest. Clinically queried calcification inthe right upper lobe is a calcified granuloma. THIS IS AN ELECTRONICALLY VERIFIED FINAL REPORT 07/25/2021 9:42 AM - Electronically signed by Frank DAVIES T: Report ID: [id number] Reading Location: [place] [address] Aakash Garcia MD IMG CT PROCEDURES Final Resu lt * XR Shoulder Right 2 or More Views (07/18/2021 7:22 AM CDT) Anatomical Region Laterality Modality Upper Extremities, Shoulder Right Comp uted Radiography 07/18/2021 2:42 PM CDT Narrative 07/18/2021 2:44 PM CDT EXAM DESCRIPTION: ?? XR SHOULDER RIGHT 2 OR MORE VIEWS REASON FOR STUDY: ??Posterior upper shoulder pain w/o injury for 1 month.. ?? Numbness/tingle radiating to fingers ?? TECHNIQUE: ?? Internal rotation, external rotation, and scapular Y views of the right shoulder were obtained. COMPARISON: ?? Chest radiograph 02/07/2021 FINDINGS: BONES/JOINTS: ??Alignment is normal. ??Glenohumeral and acromioclavicular joint spaces are normal. SOFT TISSUES: ??Unremarkable. VISUALIZED RIBS AND LUNG: ??No significant finding. OTHER: ??No significant finding. IMPRESSION: ?? No acute osseous abnormality. Normal right shoulder joint spaces. THIS IS AN ELECTRONICALLY VERIFIED FINAL REPORT 07/18/2021 2:44 PM - Electronically signed by Frankus Melissa Torres M.D. MZ D: ??07/18/2021 2:44 PM T: Report ID: [id number] Reading Location: ??[id number] Procedure Note Frank Torres MD - 07/18/2021 EXAM DESCRIPTION: XR SHOULDER RIGHT 2 OR MORE VIEWS REASON FOR STUDY: Posterior upper shoulder pain w/o injury for 1 month.. Numbness/tingle radiating to fingers TECHNIQUE: Internal rotation, external rotation, and scapular Y views ofthe right shoulder were obtained. COMPARISON: Chest radiograph 02/07/2021 FINDINGS: BONES/JOINTS: Alignment is normal. Glenohumeral and acromioclavicularjoint spaces are normal. SOFT TISSUES: Unremarkable. VISUALIZED RIBS AND LUNG: No significant finding. OTHER: No significant finding. IMPRESSION: No acute osseous abnormality. Normal right shoulder joint spaces. THIS IS AN ELECTRONICALLY VERIFIED FINAL REPORT 07/18/2021 2:44 PM - Electronically signed by Frank Torres M.D. MZ T: Report ID: [id number] Reading Location: [place] [address] Aakash Garcia MD IMG XR PROCEDURES Final Resu lt * (ABNORMAL) Comprehensive metabolic panel (07/17/2021 6:31 AM CDT) Sodium 143 135 - 145 mmol/L [facility] Potassium, pl 4.0 3.3 - 4.9 mmol/L [facility] Chloride 107 97 - 110 mmol/L [facility] CO2 26 22 - 32 mmol/L [facility] Anion gap 10 2 - 15 mmol/L [facility] BUN 13 8 - 25 mg/dL [facility] Creatinine 0.80 0.60 - 1.10 mg/dL [facility] Glucose 117 70 - 199 mg/dL [facility] Comment: Interpretive Data Fasting glucose >/= 126 mg/dl is diagnostic for diabetes. ?? Fasting is defined as no caloric intake for at least 8 hours. Fasting glucose between 100 mg/dl to 125 mg/dl is diagnostic of prediabetes. In a patient with classic symptoms of hyperglycemia or hyperglycemic crisis, a random glucose >/= 200 mg/dl is diagnostic for diabetes. In the absence of unequivocal hyperglycemia, results should be confirmed by repeat testing. The classification and Diagnosis of Diabetes Diabetes Care 2017;40 (Suppl. 1):S11. Current interpretive data was last revised 2017. Calcium 9.2 8.5 - 10.3 mg/dL [facility] Bilirubin, total 0.6 0.1 - 1.2 mg/dL [facility] Protein, pl 6.9 6.5 - 8.5 g/dL [facility] Albumin 4.1 3.5 - 5.0 g/dL [facility] Alk phos 140(H) 40 - 130 Units/L [facility] ALT 15 7 - 45 Units/L [facility] AST 19 10 - 45 Units/L [facility] Blood 07/17/2021 6:31 AM CDT 07/17/2021 7:51 AM CDT Aakash Garcia MD LAB BLOOD ORDERABLES Final R esult [facility] [address] [facility] [place] [address] * D-dimer, quantitative (07/17/2021 6:31 AM CDT) D-Dimer 430 <=499 ng/mL FEU [facility] Comment: Interpretive data FDA approved the D-dimer, in conjunction with a low or moderate pretest probability score, to exclude venous thromboembolic events (VTE) (PE and DVT) in outpatients when the D-dimer result is < 500 ng/ml FEU. ?? Evidence supports using an age-adjusted D-dimer cut-off for outpatients older than 50 (age x 10) to improve specificity without sacrificing sensitivity. Example: age 68, VTE cut-off 680 ng/ml FEU. References; Schouten HT et al. Brit Med J. 2013;346:f2492. Ashley DECKER et al. Annals Int Med. 2015;163:701-11. Current interpretive data was last revised on 2019. Blood 07/17/2021 6:31 AM CDT 07/17/2021 7:51 AM CDT us Aakash Garcia MD LAB BLOOD ORDERABLES Final R esult [facility] [address] [place] [address] * Vitamin D 25 hydroxy (07/17/2021 6:31 AM CDT) Vitamin D 25-OH 53.0 30.0 - 80.0 ng/mL [facility] Blood 07/17/2021 6:31 AM CDT 07/17/2021 7:51 AM CDT us Aakash Garcia MD LAB BLOOD ORDERABLES Final R esult Performing Organization Address City/[facility] Co de Phone Number [address] [place] [address] documented in this encounter Visit Diagnoses Diagnosis Physical exam, annual- Primary Carpal tunnel syndrome of right wrist Localized swelling, mass, or lump of upper extremity, bilateral Neck pain Cervicalgia Radiculopathy, cervical Brachial neuritis or radiculitis nos Abnormal CXR Nonspecific (abnormal) findings on radiological and other examination of lung field SOB (shortness of breath) Shortness of breath Cough Acute pain of right shoulder HTN, goal below 140/90 Vitamin D deficiency (17) Median nerve compression Carpal tunnel syndrome Localized swelling, mass, or lump of upper extremity, bilateral Neck pain Cervicalgia Acute pain of right shoulder Localized swelling, mass, or lump of upper extremity, bilateral Neck pain Cervicalgia Abnormal CXR Nonspecific (abnormal) findings on radiological and other examination of lung field SOB (shortness of breath) Shortness of breath Cough Localized swelling, mass, or lump of upper extremity, bilateral documented in this encounter Care Teams [employer] Relationship Specialty Start Date End Date Aakash Garcia MD [address] [place] [id number] PCP - General Internal Medicine 12/25/20 Tommy Brownlee MD [address] [facility] [address] [place] [address] Referring Physician Obstetrics and Gynecology 01/20/21 documented as of this encounter"
--- OUTSIDE RECORDS SUMMARY | 2024-09-19 04:37 | XMS_ITS | Encounter Summary ---
Author Organization [facility] Healthcare Address [address] [place] [address] Care Team Providers Care Shoe Turner Name Role Phone Lillian Adam MD Primary Care Provider [phone] oTmmy Brownlee MD Unavailable [phone] Reason for Visit * Auth/Cert Specialty Diagnoses / Procedures Referred By Zeny shaw Referred To Contact Diagnoses Carpal tunnel syndrome on right Carpal tunnel syndrome on right [G56.01] Procedures OH REVISE MEDIAN N/CARPAL TUNNEL SURG RELEASE RIGHT CARPAL TUNNEL Referral ID Status Reason Start Date Expiration Date Visits Re quested Visits Authorized [id number] 1 1 Encounter Details Date Type Department Care Team (Late st Contact Info) Description 09/09/2021 11:15 AM NUCLEAR EQUIPMENT RESEARCH ENGINEER - 09/09/2021 11:45 AM NUCLEAR EQUIPMENT RESEARCH ENGINEER Surgery [facility] OR [address] [place] [id number] Rashaad Miller MD [address] [facility] [place] [address] RELEASE RIGHT CARPAL TUNNEL Surgery Details Date/Time Status Location OR Service Patient Class Case Class Case Type Trauma Case? 09/09/2021 11:15 AM Posted E OPERATING ROOM OR Orthopaedics Outpatient Elective Panel 1 Procedure LRB Anes Op Region Wound Class Comments RELEASE RIGHT CARPAL TUNNEL Right General Wrist Cl ass I - Clean Surgeon Surgeon Role Service Panel Rashaad Miller MD Primary Orthopaedics 1 Case Notes RT CTR *N/L* documented in this encounter Social History Tobacco [...] on file Legal Sex Female 8:38 PM NUCLEAR EQUIPMENT RESEARCH ENGINEER Gender Identity Not on file Sexual Orientation Not on file documented as of this encounter Last Filed Vital Signs Vital Sign Reading Time Taken Comments Blood Pressure 134/64 09/09/2021 11:30 AM NUCLEAR EQUIPMENT RESEARCH ENGINEER Pulse 58 09/09/2021 11:30 AM NUCLEAR EQUIPMENT RESEARCH ENGINEER Temperature 36.3 ??C (97.3 ??F) 09/09/2021 11:[address] Respiratory Rate 16 09/09/2021 11:30 AM NUCLEAR EQUIPMENT RESEARCH ENGINEER Oxygen Saturation 95% 09/09/2021 11:30 AM NUCLEAR EQUIPMENT RESEARCH ENGINEER Inhaled Oxygen Concentration - - Weight 106.2 kg (234 lb 1 oz) 09/09/2021 7:51 AM NUCLEAR EQUIPMENT RESEARCH ENGINEER Height 157.5 cm (5' 2 ) 09/09/2021 7:51 AM NUCLEAR EQUIPMENT RESEARCH ENGINEER Body Mass Index 42.81 09/09/2021 7:51 AM NUCLEAR EQUIPMENT RESEARCH ENGINEER documented in this encounter Discharge Instructions * Attachments The following attachments cannot be sent through Care Everywhere. * General Anesthesia (Discharge Care) (Slovak) documented in this encounter Medications at Time of Discharge ergocalciferol (VITAMIN D) 50,000 unit capsuleIndication s:Vitamin D deficiency TAKE 1 CAPSULE BY MOUTH ONE TIME PER WEEK 12 capsule 05/16/2021 gabapentin (NEURONTIN) 100 mg capsule Take 1 capsule (100 mg total) by mouth 3 (three) times a day 90 capsule 11 07/30/2021 HYDROcodone-aceta minophen (NORCO) 5-325 mg per tabletIndications :Pain,post op pain Take 1 tablet by mouth every 4 (four) hours as needed for pain 30 tablet 09/09/2021 meloxicam (MOBIC) 7.5 mg tabletIndications :Osteoarthritis Take 1 tablet (7.5 mg total) by mouth daily 30 tablet 1 06/12/2021 documented as of this encounter Ordered Prescriptions Prescription Sig Dispense Quantity Refills Last Filled Start Date End Date HYDROcodone-acetami nophen (NORCO) 5-325 mg per tabletIndications:P ain,post op pain Take 1 tablet by mouth every 4 (four) hours as needed for pain 30 tablet 09/09/2021 documented in this encounter Discharge Disposition Disposition Code Departure Means Destination Discharge to home or self care documented in this encounter H&P Notes * Rashaad Miller MD - 09/09/2021 8:16 AM CST I have reviewed the H&P, examined the patient, and endorse the findings as written. Plan of Care : Based on the above findings, I consider Dominique Manzano to be an acceptable risk for :Procedure(s): RELEASE RIGHT CARPAL TUNNEL EAR EQUIPMENT RESEARCH ENGINEER Source Note - Ame Luna PA - 09/08/2021 3:39 PM NUCLEAR EQUIPMENT RESEARCH ENGINEER Ortho Hand History and Physical Subjective Patient is a 56 y.o. female with chief complaint of right hand pain with numbness and tingling. HPI: Patient is a 56-year-old female with a history of right carpal tunnel syndrome, confirmed on recentnerve conduction studies. She wishes to proceed with surgical release. Risks, benefits and alternatives have been discussed with the patient to include wound infection, wound complication, numbness, stiffness and pillar pain. Patient expresses that she understands and wishes to proceed. Past Medical History: Diagnosis Date ??? Allergic rhinitis ? ? Carotid atherosclerosis (<15% b/l) 01/20/2021 ??? Exercise-induced asthma ??? HLD (LDL 138) 02/25/2021 discussed role of statins if diabetic. otherweise diet/exercise Past Surgical History: Procedure Laterality Date ??? SECTION ??? COLONOSCOPY No medications prior to admission. No Known Allergies Social History Tobacco Use ??? Smoking status: Never Smoker ??? Smokeless tobacco: Never Used Substance Use Topics ??? Alcohol use: Not on file No family history on file. Review of Systems Review of systems per HPI and otherwise all systems are negative Physical exam: Awake, alert, oriented No acute distress Breathing regular and unlabored Her bilateral wrist range of motion motor strength stability is within normal limits both hands warm to the touch her light touch grossly intact in both hands good perfusion of both hands. She has a positive carpal tunnel compression test on the right negative on the left her abductor pollicis brevis strength on the right is 4/5 compared to 5/5 on the left. ? Assessment/Plan Right carpal tunnel syndrome. Plan for right open carpal tunnel release under general anesthesia on09/09/2021. Cosigned by Rashaad Miller MD at 09/09/2021 8:16 AM NUCLEAR EQUIPMENT RESEARCH ENGINEER EAR EQUIPMENT RESEARCH ENGINEER EAR EQUIPMENT RESEARCH ENGINEER * Ame Luna PA - 09/08/2021 3:39 PM CST Ortho Hand History and Physical Subjective Patient is a 56 y.o. female with chief complaint of right hand pain with numbness and tingling. HPI: Patient is a 56-year-old female with a history of right carpal tunnel syndrome, confirmed on recentnerve conduction studies. She wishes to proceed with surgical release. Risks, benefits and alternatives have been discussed with the patient to include wound infection, wound complication, numbness, stiffness and pillar pain. Patient expresses that she understands and wishes to proceed. Past Medical History: Diagnosis Date ??? Allergic rhinitis ? ? Carotid atherosclerosis (<15% b/l) 01/20/2021 ??? Exercise-induced asthma ??? HLD (LDL 138) 02/25/2021 discussed role of statins if diabetic. otherweise diet/exercise Past Surgical History: Procedure Laterality Date ??? SECTION ??? COLONOSCOPY No medications prior to admission. No Known Allergies Social History Tobacco Use ??? Smoking status: Never Smoker ??? Smokeless tobacco: Never Used Substance Use Topics ??? Alcohol use: Not on file No family history on file. Review of Systems Review of systems per HPI and otherwise all systems are negative Physical exam: Awake, alert, oriented No acute distress Breathing regular and unlabored Her bilateral wrist range of motion motor strength stability is within normal limits both hands warm to the touch her light touch grossly intact in both hands good perfusion of both hands. She has a positive carpal tunnel compression test on the right negative on the left her abductor pollicis brevis strength on the right is 4/5 compared to 5/5 on the left. ? Assessment/Plan Right carpal tunnel syndrome. Plan for right open carpal tunnel release under general anesthesia on09/09/2021. Cosigned by Rashaad Miller MD at 09/09/2021 8:16 AM NUCLEAR EQUIPMENT RESEARCH ENGINEER EAR EQUIPMENT RESEARCH ENGINEER EAR EQUIPMENT RESEARCH ENGINEER documented in this encounter Miscellaneous Notes * Perioperative Nursing Note - Edita Roper RN - 09/09/2021 11:44 AM NUCLEAR EQUIPMENT RESEARCH ENGINEER Patient discharged to home accompanied by daughter, transported via wheelchair by tech. All discharge instructions reviewed, all questions answered. All belongings returned to patient. EAR EQUIPMENT RESEARCH ENGINEER * Op Note - Rashaad Miller MD - 09/09/2021 11:15 AM CST DATE OF PROCEDURE: 09/09/21 SURGEON: Rashaad Miller MD VISCOSITY INSPECTOR: Wire Brush Operator: Arina Menendez RN Physician Floor Tech: Sindhu Luna Wire Brush Operator Second: Naye Temple RN FIRST ASSIST: Ame Luna PREOPERATIVE DIAGNOSIS: Right carpal tunnel syndrome POSTOPERATIVE DIAGNOSIS: Right carpal tunnel syndrome PROCEDURE: Right carpal tunnel release ANESTHESIA: General ESTIMATED BLOOD LOSS: Minimal TOURNIQUET PRESSURE: 250 mm Hg TOURNIQUET TIME: Total Tourniquet Time Documented: Arm - Upper (Right) - 5 minutes Total: Arm - Upper (Right) - 5 minutes COMPLICATIONS: None Description of Procedure: Risks, benefits and alternatives to include nerve injury, infection and pillar pain were discussed and she wished to proceed with surgical intervention. She was brought to the operating room she underwent general anesthetic without complication.. Her right upper extremity was prepped and draped in normal sterile fashion. The skin was incised with a 15 blade volar surface overlying the transverse carpal ligament. The incision was made starting at the distal wrist flexion crease in line with Alonzo's line and extending distally to Alonzo's line. Dissection was performed down to the transverse carpal ligament and all the while protecting the median nerve the transverse carpal ligament was transected completely, followed by the skin being closed with 3-0 nylon, and sterile dressing was applied. She tolerated the procedure well. Ame johnson Physician's Floor Tech's services included preoperative and postoperative assessment and documentation, patient positioning, prep and drape, intraoper ative positioning and retraction, closure and postoperative dressing and postoperative orders. Thissignificantly facilitated the procedure, limiting operative time and the associated coexisting morbidities. No other MD assistance was available. EAR EQUIPMENT RESEARCH ENGINEER * Pre-Procedure Instructions - Lalita Vargas RN - 08/28/2021 12:46 PM NUCLEAR EQUIPMENT RESEARCH ENGINEER We are pleased that you and your doctor have chosen [facility] for your surgery. We hope that the following information will help make your visit a pleasant one. Surgery Date: 09/09/2021 - Please enter through the main entrance at [facility]. Dr. Miller's office will contact you with your arrival time for surgery. You are allowed to have one visitor in the Outpatient Surgery department. Your visitor must be an adult, children are not allowed in the hospital at this time. Our cafeteria is currently closed, but outside food and drink are allowed in our department. Before your surgery: ?? Notify your doctor of ANY change in your health such as a cold, sore throat, fever, any infection or a change in the problem for which you are having your surgery. ?? Follow any instructions given to you by your doctor or surgeon. You will be required to COVID test three days prior to your procedure. Our testing site is located at [address] [place] [address]. Wednesday - Wednesday 8:00 - 4:30 Wednesday and Wednesday 8:00 - 12:30 Please self quarantine after your test until time of procedure. Check with your doctor if you need to STOP taking: ?? Aspirin (ordered by your doctor) ?? Plavix ?? Coumadin One week before surgery STOP taking: ?? All herbal supplements ?? Aspirin (not ordered by your doctor) ?? Aleve, Advil, Motrin, Ibuprofen, or other similar medications (Tylenol is okay). 24 hours before your surgery: ?? No smoking or alcoholic drinks. Night before your surgery: ?? Do not eat or drink anything after midnight. ?? Follow surgeon's instructions for anti-bacterial shower night before and morning of surgery. You will need to take two surgical showers prior to your procedure, the night before and the morning of. You may use HIBICLENS surgical soap or an antibacterial soap. Do not apply the HIBICLENS soap to your hair, face, or genitals. Please use clean washcloth and clean towel, sleep on clean sheets, and do not sleep with any pets the night before surgery. Repeat your surgical shower the morning of your procedure (you do not need to wash your hair again). Do not apply any products to your skin. Wear loose, comfortable clothing. Day of surgery: ?? Do not swallow any water when you brush your teeth. ?? Do not take your AM insulin dose or any diabetic medicines ?? ONLY take these pills with a tiny sip of water. Pre-Surgery Instructions: Medication Instructions ??? gabapentin (NEURONTIN) 100 mg capsule Continue, please take the morning of your procedure ?? Use no make-up, nail congolese, lotions, oils or powders on your skin. ?? Wear comfortable clothes that will not be tight in the area of your surgery. ?? Leave all valuables and jewelry (including all body piercing jewelry) at home. ?? If you use a CPAP machine, please bring it with you to wear after your surgery. ?? Please bring your a photo ID and insurance cards with you. ?? Check in at the Registration Desk. ?? If you are 17 years old or younger, a parent or guardian must come with you. After your Outpatient Surgery: ?? You must have a responsible adult to drive you home, you will not be allowed to drive or take a cab home. ?? We recommend you have someone stay with you for 24 hours after your surgery. What to bring if you are spending the night with us: ?? Bring toiletry items such as: robe, slippers, toothbrush, toothpaste, brush or comb. ?? Bring contact lens, hearing aids, glass cases and denture container if you use any of these items. ?? The hospital will provide you with a gown. Questions or concerns: ?? If you have any questions or concerns regarding your procedure, contact your surgeon as soon as possible. ?? If you have questions regarding your Pre-Admission Testing, please call us. We can be reached [phone]. EAR EQUIPMENT RESEARCH ENGINEER documented in this encounter Plan of Treatment Not on file documented as of this encounter Procedures Procedure Name Priority Date/Time Associated Diagnosis Comments RELEASE CARPAL TUNNEL 09/09/2021 10:06 AM NUCLEAR EQUIPMENT RESEARCH ENGINEER Carpal tunnel syndrome on right Case Notes RT CTR *N/L* POCT HCG, URINE Routine 09/09/2021 8:36 AM NUCLEAR EQUIPMENT RESEARCH ENGINEER ECG 12-LEAD STAT 09/09/2021 8:15 AM NUCLEAR EQUIPMENT RESEARCH ENGINEER documented in this encounter Results * POCT hCG, urine (09/09/2021 8:36 AM NUCLEAR EQUIPMENT RESEARCH ENGINEER) [facility] HCG, ur, POC Negative Lot Number [id number] QC Backgroud Clear Acceptable QC Control Line Acceptable Urine 09/09/2021 8:36 AM NUCLEAR EQUIPMENT RESEARCH ENGINEER us Dalton Davalos MD POINT OF CARE TEST ORDERABLE S Final Result * ECG 12 lead (09/09/2021 8:15 AM NUCLEAR EQUIPMENT RESEARCH ENGINEER) Pathologist [facility] Ventricular Rate EKG/Min 62 BPM [facility] Atrial Rate 62 BPM [facility] [place]-Interval (MSEC) 152 ms [facility] QRS-Interval (MSEC) 82 ms [facility] QT-Interval (MSEC) 406 ms [facility] QTc 412 ms [facility] P [place] 61 degrees [facility] R [place] 33 degrees [facility] T [place] 17 degrees [facility] Diagnosis Normal sinus rhythm Normal ECG No previous ECGs available [facility] 09/09/2021 8:15 AM NUCLEAR EQUIPMENT RESEARCH ENGINEER 09/09/2021 2:05 PM NUCLEAR EQUIPMENT RESEARCH ENGINEER us Dalton Davalos MD ECG ORDERABLES Final Result [facility] documented in this encounter Visit Diagnoses Diagnosis Carpal tunnel syndrome of right wrist- Primary Carpal tunnel syndrome of right wrist Carpal tunnel syndrome on right Carpal tunnel syndrome documented in this encounter Admitting Diagnoses Diagnosis Carpal tunnel syndrome of right wrist documented in this encounter Administered Medications Inactive Administered Medications - up to 3 most recent administrations Medication Order MAR Action Action Date Dose Rate Site acetaminophen (TYLENOL) tablet 975 mg 975 mg (rounded from 1,000 mg), oral, Once, On Wed09/09/21 at 0845, For 1 dose, Pre-Op, Indications: Pre-Emptive AnalgesiaIndications:Pre-Emptive Analgesia Given 09/09/2021 8:34 AM NUCLEAR EQUIPMENT RESEARCH ENGINEER 975 mg bupivacaine (MARCAINE) 0.5 % (5 mg/mL) preservative free injection As needed, Starting on Wed09/09/21 at 1014, Intra-Op Given 09/09/2021 10:14 AM NUCLEAR EQUIPMENT RESEARCH ENGINEER 5 mL dextrose (D10W) 10% bolus 250 mL 250 mL, intravenous, at 1,000 mL/hr, Administer over 15 Minutes, Every 15 min PRN, blood glucose less than 70 mg/dL and UNABLE to swallow/take PO glucose/juice., Starting on Wed09/09/21 at 1020, Phase I, After treatment for hypoglycemia, recheck BG followed by treatment every 15 minutes until the BG is greater than 100 mg/dL. Then check BG 1 hour post treatment. If BG is less than 100 mg/dL, repeat Q15 minute BG checks and treatment. Call MD for each episode of hypoglycemia., Indications: hypoglycemic disorderIndications:hypoglycemic disorder dextrose (GLUTOSE) 40 % gel 15 g 15 g, oral, Every 15 min PRN, low blood sugar, blood glucose less than 70 mg/dL, Starting on Wed09/09/21 at 1020, Phase I, If patient is alert and able to eat/drink, give 15 gm glucose or one juice (4 fluid ounces) NOT ORANGE JUICE. After treatment for hypoglycemia, recheck BG followed by treatment every 15 minutes until the BG is greater than 100 mg/dL. Then check BG 1 hour post-treatment. If BG is less than 100 mg/dL, repeat Q15 minute BG checks and treatment. Call MD for each episode of hypoglycemia. CIRCULAR STUFFER STATES GLUTOSE-15 CONTAINS GLUCOSE 40% W/W (50% W/V), Indications: hypoglycemic disorderIndications:hypoglycemic disorder famotidine (PEPCID) tablet 20 mg 20 mg, oral, Once, On Wed09/09/21 at 0845, For 1 dose, Pre-Op, Indications: gastroesophageal reflux diseaseIndications:gastroesophagea l reflux disease Given 09/09/2021 8:34 AM NUCLEAR EQUIPMENT RESEARCH ENGINEER 20 mg Lactated Ringer's (LR) infusion 30 mL/hr, intravenous, Continuous, Starting on Wed09/09/21 at 0845, Pre-Op Restarted 09/09/2021 10:06 AM NUCLEAR EQUIPMENT RESEARCH ENGINEER New Bag 09/09/2021 8:34 AM NUCLEAR EQUIPMENT RESEARCH ENGINEER 30 mL/hr 30 mL/hr lidocaine PF (XYLOCAINE) 10 mg/mL (1 %) preservative free injection 2-10 mg 2-10 mg (0.2-1 mL), other, Once as needed, pain with IV placement, Starting on Wed09/09/21 at 0810, For 1 dose, Pre-Op, Administer volume needed to infiltrate IV site. oxyCODONE (ROXICODONE) tablet 5 mg 5 mg, oral, Once, On Wed09/09/21 at 1130, For 1 dose, Phase I, Indications: PainIndications:Pain Given 09/09/2021 10:55 AM NUCLEAR EQUIPMENT RESEARCH ENGINEER 5 mg sodium chloride 0.9% flush 0.5-20 mL 0.5-20 mL, intra-catheter, As needed, line care, Starting on Wed09/09/21 at 0810, Pre-Op, Flush volume based on line type and size. Flush before and after each use. documented in this encounter Discontinued Medications Medication Sig Discontinue Reason Start Date End Da te predniSONE (DELTASONE) 20 mg tabletIndications:Anti -inflammatory,Radiculo cachorro 3tabs for 5days, then 2 tabs for 5day,then 1tab for 5days Stop Taking at Discharge 07/16/2021 09/09/2021 fluconazole (DIFLUCAN) 150 mg tablet Take 1 tablet (150 mg total) by mouth as directed Take one tab now. Repeat in 7 days if symptoms persist. Stop Taking at Discharge 07/16/2021 09/09/2021 documented as of this encounter Active and Recently Administered Medications Times are shown in NUCLEAR EQUIPMENT RESEARCH ENGINEER. Scheduled Medication Order 09/07/2021 09/08/2021 09/09/2021 acetaminophen (TYLENOL) tablet 975 mg (COMPLETED) 975 mg (rounded from 1,000 mg), oral, Once, On Wed09/09/21 at 0845, For 1 dose, Pre-Op, Indications: Pre-Emptive Analgesia 0834 (Given - Provid er: Edita Roper RN) ceFAZolin (ANCEF) 2,000 mg/20 mL in sterile water (premix) 2,000 mg (COMPLETED) 2,000 mg, intravenous, at 400 mL/hr, Administer over 3 Minutes, Once, On Wed09/09/21 at 0845, For 1 dose, Pre-Op, Administer within 60 minutes of incision., Indications: Prophylaxis, Surgical 1012 (Given - Provid er: Stephanie Gray CRNA) famotidine (PEPCID) tablet 20 mg (COMPLETED) 20 mg, oral, Once, On Wed09/09/21 at 0845, For 1 dose, Pre-Op, Indications: gastroesophageal reflux disease 0834 (Given - Provid er: Edita Roper RN) oxyCODONE (ROXICODONE) tablet 5 mg (COMPLETED) 5 mg, oral, Once, On Wed09/09/21 at 1130, For 1 dose, Phase I, Indications: Pain 1055 (Given - Provid er: Chana Hatch RN) Continuous Medication Order 09/07/2021 09/08/2021 09/09/2021 Lactated Ringer's (LR) infusion 30 mL/hr, intravenous, Continuous, Starting on Wed09/09/21 at 0845, Pre-Op 0812 (Due)0834 (New Bag - Provider: Edita Roper RN)1005 (Paused - Provider: Stephanie Gray CRNA - Comment: Switch to gravity)1006 (Restarted - Provider: Stephanie Gray CRNA)1022 (Anesthesia Volume Adjustment - Provider: Stephanie Gray CRNA) PRN Medication Order 09/07/2021 09/08/2021 09/09/2021 bupivacaine (MARCAINE) 0.5 % (5 mg/mL) preservative free injection (CANCELED) As needed, Starting on Wed09/09/21 at 1014, Intra-Op 1014 (Given - Provid er: Rashaad Miller MD) dextrose (D10W) 10% bolus 250 mL(Linked Group 1) 250 mL, intravenous, at 1,000 mL/hr, Administer over 15 Minutes, Every 15 min PRN, blood glucose less than 70 mg/dL and UNABLE to swallow/take PO glucose/juice., Starting on Wed09/09/21 at 1020, Phase I, After treatment for hypoglycemia, recheck BG followed by treatment every 15 minutes until the BG is greater than 100 mg/dL. Then check BG 1 hour post treatment. If BG is less than 100 mg/dL, repeat Q15 minute BG checks and treatment. Call MD for each episode of hypoglycemia., Indications: hypoglycemic disorder dextrose (GLUTOSE) 40 % gel 15 g(Linked Group 1) 15 g, oral, Every 15 min PRN, low blood sugar, blood glucose less than 70 mg/dL, Starting on Wed09/09/21 at 1020, Phase I, If patient is alert and able to eat/drink, give 15 gm glucose or one juice (4 fluid ounces) NOT ORANGE JUICE. After treatment for hypoglycemia, recheck BG followed by treatment every 15 minutes until the BG is greater than 100 mg/dL. Then check BG 1 hour post-treatment. If BG is less than 100 mg/dL, repeat Q15 minute BG checks and treatment. Call MD for each episode of hypoglycemia. CIRCULAR STUFFER STATES GLUTOSE-15 CONTAINS GLUCOSE 40% W/W (50% W/V), Indications: hypoglycemic disorder diphenhydrAMINE (BENADRYL) injection 12.5 mg 12.5 mg, intravenous, Every 15 min PRN, itching, Starting on Wed09/09/21 at 1020, For 2 doses, Phase I, Max cumulative dose 50 mg., Indications: Itching fentaNYL (SUBLIMAZE) preservative free injection 25 mcg 25 mcg, intravenous, Every 10 min PRN, uncontrolled pain on PACU admission, Starting on Wed09/09/21 at 1020, For 4 doses, Phase I, Then proceed to PACU 1st line analgesic., Indications: Pain glucagon injection 1 mg 1 mg, intramuscular, Every 30 min PRN, low blood sugar, blood glucose less than 70 mg/dL AND no IV access AND unable to take PO glucose/juice., Starting on Wed09/09/21 at 1020, Phase I, After Glucagon is administered, position patient on side if possible to avoid aspiration. Obtain IV access. Follow glucagon treatment with glucose treatment or IV dextrose. After treatment for hypoglycemia, recheck BG followed by treatment every 15 minutes until the BG is greater than 100 mg/dL. Then check BG 1 hour post treatment. If BG is less than 100 mg/dL, repeat Q15 minute BG checks and treatment. Call MD for each episode of hypoglycemia. Reconstitute 1 mg vial with 1 mL SWFI. Use immediately following reconstitution. hydrALAZINE (APRESOLINE) injection 5 mg 5 mg, intravenous, Administer over 2 Minutes, Every 15 min PRN, high blood pressure, Starting on Wed09/09/21 at 1020, Phase I, Max cumulative dose 20 mg. Dose if systolic BP greater than 180 AND heart rate less than 70., Indications: hypertension HYDROmorphone (DILAUDID) injection 0.2 mg 0.2 mg, intravenous, Administer over 2 Minutes, Every 10 min PRN, 1st line for pain, Starting on Wed09/09/21 at 1020, Phase I, Switch to 2nd line analgesic order if pain is uncontrolled or increasing after 2 doses. Notify Anesthesiologist if total PACU dose reaches 2 mg and pain score 5/10 or more., Indications: Pain HYDROmorphone (DILAUDID) injection 0.4 mg 0.4 mg, intravenous, Administer over 2 Minutes, Every 10 min PRN, 2nd line for pain, Starting on Wed09/09/21 at 1020, Phase I, May administer 10 mintes after 2nd dose of 1st line analgesic agent for uncontrolled or increasing pain. Revert to 1st line dose if POSS of 3. Notify Anesthesiologist if total PACU dose reaches 2 mg and pain score 5/10 or more., Indications: Pain insulin lispro (HumaLOG, ADMELOG) 100 unit/mL injection 1-5 Units 1-5 Units, subcutaneous, Once as needed, high blood sugar, Starting on Wed09/09/21 at 1020, For 1 dose, Phase I, Blood Sugar Mid Dose - Surgical/Post-Op ICU 139 or less No insulin 140 - 175 1 unit 176 - 200 2 unit 201 - 250 3 units 251 - 299 5 units Greater than 299 Call MD for hyperglycemia management instructions Do NOT hold for NPO status., Indications: Diabetes Mellitus labetaloL (NORMODYNE,TRANDATE) injection 5 mg 5 mg, intravenous, at 30 mL/hr, Administer over 2 Minutes, Every 10 min PRN, high blood pressure, Starting on Wed09/09/21 at 1020, Phase I, Max cumulative dose 20 mg. Dose if systolic blood pressure greater than 180 AND HR greater than 70. lidocaine PF (XYLOCAINE) 10 mg/mL (1 %) preservative free injection 2-10 mg 2-10 mg (0.2-1 mL), other, Once as needed, pain with IV placement, Starting on Wed09/09/21 at 0810, For 1 dose, Pre-Op, Administer volume needed to infiltrate IV site. meperidine (DEMEROL) preservative free injection 12.5 mg 12.5 mg, intravenous, Administer over 5 Minutes, Every 10 min PRN, shivering, Starting on Wed09/09/21 at 1020, For 2 doses, Phase I, Max cumulative dose 25 mg., Indications: Shivering naloxone (NARCAN) 0.4 mg/mL injection 0.04-0.4 mg 0.04-0.4 mg, intravenous, Once as needed, other, excessive sedation/respiratory depression, Starting on Wed09/09/21 at 1020, For 1 dose, Phase I, Dilute 0.4 mg with 9 mL NS (final concentration 0.04 mg/mL). For respiratory depression (respiratory rate less than 6), administer 0.4 mg IVP over 30 seconds. For excessive sedation administer 0.04 mg (1 mL) every 1 minute until desired level of alertness. For IV, administer over 30 seconds., Indications: Opioid Toxicity ondansetron (ZOFRAN) injection 4 mg 4 mg, intravenous, Administer over 2 Minutes, Once as needed, nausea, vomiting, Starting on Wed09/09/21 at 1020, For 1 dose, Phase I, Proceed to prochlorperazine if ondansetron has been given within the last 6 hours. prochlorperazine (COMPAZINE) injection 5 mg 5 mg, intravenous, Once as needed, nausea, vomiting, Starting on Wed09/09/21 at 1020, For 1 dose, Phase I, If nausea/vomiting not relieved by ondansetron within 30 minutes or if ondansetron has been given within the last 6 hours. sodium chloride 0.9% flush 0.5-20 mL 0.5-20 mL, intra-catheter, As needed, line care, Starting on Wed09/09/21 at 0810, Pre-Op, Flush volume based on line type and size. Flush before and after each use. Linked Groups Order Group 1: dextrose (GLUTOSE) 40 % gel 15 gJump to med 15 g, oral, Every 15 min PRN, low blood sugar, blood glucose less than 70 mg/dL, Starting on Wed09/09/21 at 1020, Phase I, If patient is alert and able to eat/drink, give 15 gm glucose or one juice (4 fluid ounces) NOT ORANGE JUICE. After treatment for hypoglycemia, recheck BG followed by treatment every 15 minutes until the BG is greater than 100 mg/dL. Then check BG 1 hour post-treatment. If BG is less than 100 mg/dL, repeat Q15 minute BG checks and treatment. Call MD for each episode of hypoglycemia. CIRCULAR STUFFER STATES GLUTOSE-15 CONTAINS GLUCOSE 40% W/W (50% W/V), Indications: hypoglycemic disorder Or dextrose (D10W) 10% bolus 250 mLJump to med 250 mL, intravenous, at 1,000 mL/hr, Administer over 15 Minutes, Every 15 min PRN, blood glucose less than 70 mg/dL and UNABLE to swallow/take PO glucose/juice., Starting on Wed09/09/21 at 1020, Phase I, After treatment for hypoglycemia, recheck BG followed by treatment every 15 minutes until the BG is greater than 100 mg/dL. Then check BG 1 hour post treatment. If BG is less than 100 mg/dL, repeat Q15 minute BG checks and treatment. Call MD for each episode of hypoglycemia., Indications: hypoglycemic disorder documented in this encounter Orders Medications Ordered That Alexis ht Not Have Been Administered Count Last Ordered Date First Ordered Date ceFAZolin (ANCEF) 2,000 mg/2 0 mL in sterile water (premix) 2,000 mg 1 09/09/2021 dextrose (D10W) 10% bolus 250 mL 1 09/09/20 dextrose (GLUTOSE) 40 % gel 15 g 1 09/09/20 diphenhydrAMINE (BENADRYL) i njection 12.5 mg 1 09/09/2021 fentaNYL (SUBLIMAZE) preserv ative free injection 25 mcg 1 09/09/2021 glucagon injection 1 mg 1 09/09/2021 hydrALAZINE (APRESOLINE) injection 5 mg 1 1 11/10/2020 HYDROmorphone (DILAUDID) injection 0.2 mg 1 09/09/2021 HYDROmorphone (DILAUDID) injection 0.4 mg 1 09/09/2021 insulin lispro (HumaLOG, ADM ELOG) 100 unit/mL injection 1-5 Units 1 09/09/2021 labetaloL (NORMODYNE,TRANDAT E) injection 5 mg 1 09/09/2021 lidocaine PF (XYLOCAINE) 10 mg/mL (1 %) preservative free injection 2-10 mg 1 09/09/2021 meperidine (DEMEROL) preserv ative free injection 12.5 mg 1 09/09/2021 naloxone (NARCAN) 0.4 mg/mL injection 0.04-0.4 mg 1 09/09/2021 ondansetron (ZOFRAN) injection 4 mg 1 09/09 prochlorperazine (COMPAZINE) injection 5 mg 1 09/09/2021 sodium chloride 0.9% flush 0.5-20 mL 1 08/21 Diet Count Last Ordered Date First Orde red Date ADULT DISCHARGE DIET 1 09/09/2021 Nursing Count Last Ordered Date First Orde red Date DISCHARGE CALL PROVIDER 1 09/09/2021 DISCHARGE DRESSING 2 09/09/2021 DISCHARGE INSTRUCTIONS 2 09/09/2021 Discharge Count Last Ordered Date First Orde red Date DISCHARGE PATIENT 1 09/09/2021 documented in this encounter Care Teams Shoe Turner Relationship Specialty Start Date End Date Lillian Adam MD [address] [id number] PCP - General Internal Medicine 12/25/20 Tommy Brownlee MD [address] [address] Referring Physician Obstetrics and Gynecology 01/20/21 documented as of this encounter
--- OUTSIDE RECORDS SUMMARY | 2024-09-19 04:37 | XMS_ITS | Encounter Summary ---
Author Organization [facility] Healthcare Address [address] [place] [address] Care Team Providers Care Drapery Examiner Name Role Phone Lillian Adam MD Primary Care Provider [phone] Tommy Brownlee MD Unavailable [phone] Reason for Visit * Diagnostic Imaging (Routine) - Closed Specialty Diagnoses / Procedures Referred By Contac t Referred To Contact Diagnoses Right wrist pain Procedures XR Wrist Right 3 (Standard) Rashaad Murcia MD [address] [place] [address] Phone: tel: fax: [facility] [address] [place] [phone] Referral ID Status Reason Start Date Expiration Date Visits Re quested Visits Authorized [id number] Closed 08/05/2021 09/04/2022 1 1 Encounter Details Date Type Department Care Team (Latest Contact Info) Description 08/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 - 08/18/2021 11:59 PM STEEL ERECTOR APPRENTICE Hospital Encounter [facility] [address] [place] [id number] Discharge Disposition: Discharge to home or self [...] on file Legal Sex Female 8:38 PM STEEL ERECTOR APPRENTICE Gender Identity Not on file Sexual Orientation Not on file documented as of this encounter Medications at Time of Discharge ergocalciferol (VITAMIN D) 50,000 unit capsuleIndicatio ns:Vitamin D deficiency TAKE 1 CAPSULE BY MOUTH ONE TIME PER WEEK 12 capsule 05/16/2021 gabapentin (NEURONTIN) 100 mg capsule Take 1 capsule (100 mg total) by mouth 3 (three) times a day 90 capsule 11 07/30/2021 HYDROcodone-acet aminophen (NORCO) 5-325 mg per tabletIndication s:Pain,post op pain Take 1 tablet by mouth every 4 (four) hours as needed for pain 30 tablet 09/09/2021 meloxicam (MOBIC) 7.5 mg tabletIndication s:Osteoarthritis Take 1 tablet (7.5 mg total) by mouth daily 30 tablet 1 06/12/2021 fluconazole (DIFLUCAN) 150 mg tablet Take 1 [...] or self care documented in this encounter Plan of Treatment Not on file documented as of this encounter Procedures Procedure Name Priority Date/Time Associated Diagnosis Comments XR WRIST RIGHT 3 OR MORE VIEWS Schedule Routine, Read Routine (OP Routine) 08/18/2021 12:21 PM STEEL ERECTOR APPRENTICE Right wrist pain documented in this encounter Results * XR Wrist Right 3 (Standard) (08/18/2021 12:21 PM STEEL ERECTOR APPRENTICE) Anatomical Region Laterality Modality Upper Extremities, Wrist Right Compute d Radiography 08/20/2021 12:1 0 PM STEEL ERECTOR APPRENTICE Narrative 08/20/2021 12:10 PM STEEL ERECTOR APPRENTICE EXAM DESCRIPTION: ?? XR WRIST RIGHT 3 [...] 12:10 PM - Electronically signed by ??Rashaad CORBIN D: ??08/20/2021 12:10 PM T: Report ID: [id number] Reading Location: ??[place] [id number] Procedure Note Rashaad Murcia MD - 08/20/2021 [...] signed by Rashaad Murcia T: Report ID: [id number] Reading Location: [place] [address] Rashaad Murcia MD IMG XR PROCEDURES Final Result documented in this encounter Visit Diagnoses Not on filedocumented in this encounter Care Teams Drapery Examiner Relationship Specialty Start Date End Date Lillian Adam MD [address] [place] [id number] PCP - General Internal Medicine 12/25/20 Tommy Brownlee MD [address] [facility] [address] [place] [address] Referring Physician Obstetrics and Gynecology 01/20/21 documented as of this encounter
--- OUTSIDE RECORDS SUMMARY | 2024-09-19 04:37 | XMS_ITS | Encounter Summary ---
Author Organization [facility] Healthcare Address [address] [place] [address] Care Team Providers Care Manager Investment Name Role Phone Lillian Adam MD Primary Care Provider [phone] Tommy Brownlee MD Unavailable [phone] Reason for Visit * MRI/CAT/PET Scan (Routine) - Closed Specialty Diagnoses / Procedures Referred By Contac t Referred To Contact Radiology Diagnoses Localized swelling, mass, or lump of upper extremity, bilateral Neck pain Procedures CT Neck Soft Tissue W Contrast Lillian Adam MD [address] [place] [address] Phone: tel: fax: [address] [phone] Referral ID Status Reason Start Date Expiration Date Visits Re quested Visits Authorized [id number] Closed 07/18/2021 08/15/2022 1 1 Encounter Details Date Type Department Care Team (Latest Contact Info) Description 07/25/2021 8:27 AM CDT - 07/25/2021 9:19 AM CDT Hospital Encounter [address] [id number] Discharge Disposition: Discharge to home or self [...] on file 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 Gender Identity Not on file Sexual Orientation [...] Procedure Name Priority Date/Time Associated Diagnosis Comments CT SOFT TISSUE NECK W CONTRAST Schedule Routine, Read Routine (OP Routine) 07/25/2021 9:10 AM CDT Localized swelling, mass, or lump of upper extremity, bilateral Neck pain documented in this encounter Results * CT Neck Soft Tissue W Contrast [...] 9:51 AM - Electronically signed by Frank DAVIES D: ??07/25/2021 9:51 AM T: Report ID: [id number] Reading Location: ??[id number] Procedure Note Frank Torres MD - 07/25/2021 [...] 9:51 AM - Electronically signed by Frank DAVIES T: Report ID: [id number] Reading Location: [id number] Lillian Adam MD IMG CT PROCEDURES Final Resu lt documented in this encounter Visit Diagnoses Not on filedocumented in this encounter Care Teams Manager Investment Relationship Specialty Start Date End Date Lillian Adam MD [facility] [address] PCP - General Internal Medicine 12/25/20 Tommy Brownlee MD [address] [facility] [address] [facility] [address] [place] [address] Referring Physician Obstetrics and Gynecology 01/20/21 documented as of this encounter
--- OUTSIDE RECORDS SUMMARY | 2024-09-19 04:37 | XMS_ITS | Encounter Summary ---
Author Organization [facility] Address [address] [facility] [address] [place] [address] Care Team Providers Care Measurement Supervisor Name Role Phone Lillian Adam MD Primary Care Provider [phone] Tommy Brownlee MD Unavailable [phone] Reason for Visit * Reason Comments Follow-up f/u on recent labs a nd imaging Encounter Details Date Type Department Care Team ([facility] st Contact Info) Description 07/29/2021 2:00 PM ORCHESTRA LEADER Telemedicine [facility] Medical [facility] Primary Care [address] [phone] Lillian Adam MD [facility] [address] Median nerve compression (Primary Dx); HTN, goal below 140/90; HLD ([id number]); alkphos elevation (nl GGT) Social History Tobacco Use Types Packs/Day Years [...] on file Legal Sex Female 8:38 PM ORCHESTRA LEADER Gender Identity Not on file Sexual Orientation Not on file documented as of this encounter Last Filed Vital Signs Vital Sign Reading Time Taken Comments Blood Pressure - - Pulse - - Temperature - - Respiratory Rate - - Oxygen Saturation - - Inhaled Oxygen Concentration - - Weight 99.8 kg (220 lb) 07/29/2021 2:06 PM ORCHESTRA LEADER Height 157.5 cm (5' 2 ) 07/29/2021 2:06 PM ORCHESTRA LEADER Body Mass Index 40.24 07/29/2021 2:06 PM ORCHESTRA LEADER documented in this encounter Progress Notes * Lillian Adam MD - 07/29/2021 2:00 PM CST Images from the original note were not included. This was a telemedicine visit with Dominique akbar which took place via real- time video connection with [employer]. During the visit, I was located in the office and the patient was located at home [facility] . The patient visit started at 2:15 and ended at 2:35. The patient has been informed that the visit may not be secure and acknowledged the information. I have explained the option of participating in a telephone or video visit during the COVID-19 public health emergency to the patient. After being given an opportunity to ask questions about and discuss this type of visit, the patient verbally consented to proceeding with the telephone/video visit.The patient understands that this service replaces an office visit and they may be billed and/or responsible for any applicable copayments. The patient's problem list, medication list, past pertinent results, social history,and allergies were reviewed as part of the e-visit. The chart was updated to identify any changes in these areas. Verbal consent was obtained for telemedicine visit and treatment. Chief Complaint Chief Complaint Patient presents with ??? Follow-up f/u on recent labs and imaging Prior Information Patient Care Team: Lillian Adam MD as PCP - General (Internal Medicine) Tommy Brownlee MD as Referring Physician (Obstetrics and Gynecology) No Patient Care Coordination Note on file. HPI: Dominique Manzano is a 56 y.o. female with PMHx as below who contacted the office via video telemedicine Not better arm pain of 1-3rd right hand digits/parasthesias. Not better after steroidds. Past Social,Medical,family Hx: No Known Allergies Current Outpatient Medications Medication Sig Dispense Refill ??? ergocalciferol (VITAMIN D) 50,000 unit capsule TAKE 1 CAPSULE BY MOUTH ONE TIME PER WEEK 12 capsule 0 ??? fluconazole (DIFLUCAN) 150 mg tablet Take 1 tablet (150 mg total) by mouth as directed Take onetab now. Repeat in 7 days if symptoms persist. 2 tablet 0 ??? meloxicam (MOBIC) 7.5 mg tablet Take 1 tablet (7.5 mg total) by mouth daily 30 tablet 1 ??? predniSONE (DELTASONE) 20 mg tablet 3tabs for 5days, then 2 tabs for 5day,then 1tab for 5days 30 tablet 0 ??? gabapentin (NEURONTIN) 100 mg capsule Take 1 capsule (100 mg total) by mouth 3 (three) times a day 90 capsule 11 No current facility-administered medications for this visit. Review of Systems: Review of Systems Physical Exam: - limited due to nature of visit. . Vitals Ht 157.5 cm (5' 2 ) Wt 99.8 kg (220 lb) BMI 40.24 kg/m?? Constitutional: General appearance: appears stated age, cooperative and no distress HEENT inspection of nose - limited but nl overall appearance, no scars, lesions,masses Neck: symmetrical, overall nl appearance Lungs: Respirations appeared equal and unlabored. Patient did not appear to be in any acute distress psych: Alert and orientation to time, place and person, non-focal normal mood/ affect Good judgement and insight Limited Skin inspection : normal color No rashes or nodules on exposed areas Results/Data: Old records were reviewed. Old records were not requested. CHEMISTRY 07/07/13 0902 02/07/21 1027 03/15/21 1140 07/17/21 0631 Sodium 139 140 141 143 Potassium, pl -- -- 4.2 4.0 Potassium 3.8 4.2 -- -- Chloride 103 104 104 107 CO2 -- -- 30 26 Carbon Dioxide 28 28 -- -- BUN 8 10 -- -- Glucose 96 110* 99 117 Creatinine 0.8 0.7 0.86 0.80 Calcium 8.9 9.4 9.4 9.2 Albumin 3.9 4.3 4.0 4.1 Protein, pl -- -- -- 6.9 Total Protein 7.2 7.0 -- -- Kidney Disease Stage > 90 >90 -- -- EGFR -- -- 89 -- eGFR NON-AFR. [place] ZEALANDER -- -- 77 -- AST 14 21 22 19 ALT 9 16 -- 15 ALT (SGPT) -- -- 18 -- Alk phos -- -- 117 119 140* Alkaline Phosphatase 86 142* -- -- Bilirubin, total -- -- 0.5 0.6 Total Bilirubin 0.7 0.7 -- -- GFR 07/07/1390102/07/21 1027 03/15/21 1140 Kidney Disease Stage > 90 >90 -- EGFR -- -- 89 eGFR NON-AFR. [place]EALANDER -- -- 77 03/15/21 1140 Phosphorus, sr 3.5 LIPIDS 02/07/21 1027 Cholesterol 213* LDL Cholesterol, Calc 138* HDL Cholesterol 57 Cholesterol/HDL Ratio 3.7 Triglycerides 89 HEMATOLOGY 07/07/13 0902/07/21 1027 WBC 5.6 5.9 RBC 4.22 4.45 Hemoglobin 12.2 13.0 MCV 87.2 87.9 MCH 28.9 29.2 Plt Count 266 292 07/07/1390103/15/21 1140 Iron 83 -- TIBC 307 -- Transferrin % Sat 27 -- Ferritin 43.8 -- ESR 32* -- Vitamin B12 307 354 Endocrinology THYROID 07/07/1390102/07/21 1027 TSH 1.05 1.24 Free T3 -- 4.67 Free T4 -- 1.21 VitD/Calcium/Bone 07/07/13 0902/07/21 1027 03/15/21 1140 07/17/21 0631 25-OH Vit D -- -- 13* -- Vitamin D, 25-hydroxy -- -- -- 53.0 25-OH Vitamin D Total -- 17* -- -- Calcium 8.9 9.4 9.4 9.2 Calcium, Ionized -- -- 5.3 -- 03/15/21 1140 Parathyroid hormone, intact 51 PCOS/ VITAMINS/MINERALS 03/15/21 1140 Vitamin B12 354 GI 07/07/13 0902 02/07/21 1027 03/15/21 1140 07/17/21 0631 AST 14 21 22 19 ALT (SGPT) -- -- 18 -- ALT 9 16 -- 15 Alk phos -- -- 117 119 140* Alkaline Phosphatase 86 142* -- -- Interpretation -- -- CANCELED -- Amylase -- 38 -- -- Lipase -- 17 -- -- INFLAMATION 07/07/13901 ESR 32* Ferritin 43.8 DM 07/07/1390102/07/21 1027 Hemoglobin 12.2 13.0 Hct 36.8 39.1 Rheumatologic 07/07/13901 ESR 32* Ferritin 43.8 Transferrin % Sat 27 07/07/13901 CUCO Screen None Detected US Vein Duplex Upper Extremity Bilateral Complete Amphion Job ID: [id number] AboutMyStar Document ID: [id number] Dictated date/time: BILATERAL UPPER EXTREMITY VENOUS DUPLEX REASON FOR EXAM Swelling. FINDINGS ON THE RIGHT The right internal jugular, subclavian, axillary demonstrate spontaneous phasic flow that augments and are compressible. The brachiocephalic, basilic demonstrate spontaneous flow and are compressible. FINDINGS ON THE LEFT The left internal jugular, subclavian, axillary demonstrate spontaneous phasic flow that augments and are compressible. The brachiocephalic and basilic are all spontaneous and are compressible. INTERPRETATION No evidence of deep or superficial venous thrombosis in bilateral upper extremities. JOB ID/VF JOB ID: [id number] XR Shoulder Right 2 or More Views Result Date: 07/18/2021 Narrative: EXAM DESCRIPTION: XR SHOULDER RIGHT 2 OR MORE VIEWS REASON FOR STUDY: Posterior upper shoulder pain w/o injury for 1 month.. Numbness/tingle radiating to fingers TECHNIQUE: Internal rotation, external rotation, and scapular Y views of the right shoulder were obtained. COMPARISON: Chest radiograph 02/07/2021 FINDINGS: BONES/JOINTS: Alignment is normal. Glenohumeral and acromioclavicular joint spaces are normal. SOFT TISSUES: Unremarkable. VISUALIZED RIBS AND LUNG: No significant finding. OTHER: No significant finding. IMPRESSION: No acute osseous abnormality. Normal right shoulder joint spaces. THIS IS AN ELECTRONICALLY VERIFIED FINAL REPORT 07/18/2021 2:44 PM - Electronically signed by Frank Torres M.D. MZ T: Report ID: [id number] Reading Location: [id number] CT Neck Soft Tissue W Contrast Result Date: 07/25/2021 Narrative: EXAM DESCRIPTION: CT SOFT TISSUE NECK W CONTRAST REASON FOR STUDY: Lymphadenopathy, neck, Brachial plexopathy, nontraumatic Chronic cough and right shoulder pain x6 weeks TECHNIQUE: Post IV contrast scanning from skull base through lung apices. Reconstructed MPR images reviewed. All images stored on PACS. Automated exposure control was used as a dose optimization technique for this examination. CONTRAST TYPE/DOSE: 100mL of IOVERSOL 350 MG IODINE/ML INTRAVENOUS SYRINGE injected via intravenous COMPARISON: None available FINDINGS: SOFT TISSUE: No mass, edema or inflammatory change. ORAL CAVITY/FLOOR OF MOUTH, PHARYNX, LARYNX, HYPOPHARYNX: No abnormal findings. Asymmetry of the piriform sinuses is likely secondary to coapted mucosal surfaces, given lack of mass effect LYMPHADENOPATHY: No adenopathy. MAJOR SALIVARY GLANDS: No solid or cystic masses. No inflammatory changes. THYROID: Normal size. No nodules greater than 1 cm. VASCULATURE: No apparent critical stenosis or occlusion. INTRACRANIAL/SKULL BASE/INCLUDED ORBITS: Limited intracranial evaluation. No abnormal findings. PARANASAL SINUSES: Air-fluid level in [...] Frank Torres M.D. MZ T: Report ID: [id number] Reading Location: [id number] CT Chest W Contrast Result Date: 07/25/2021 Narrative: EXAM DESCRIPTION: CT CHEST W CONTRAST REASON FOR STUDY: Right lung apex calcification. Right shoulder impingement with right supraclavicular pain. TECHNIQUE: CT scan of the chest with intravenous contrast. Reconstructed coronal and sagittal MPR images reviewed. All images stored on PACS.Automated exposure control was used as a dose optimization technique for this examination. CONTRAST TYPE/DOSE: 100mL of IOVERSOL 350 MG IODINE/ML INTRAVENOUS SYRINGE injected via intravenous COMPARISON: Chest radiograph from 02/07/2021 FINDINGS: LUNGS: There is a calcified granuloma at the right lung apex no pneumonia or pulmonary edema. No suspicious pulmonary nodule. PLEURA: No effusion. No pneumothorax. MEDIASTINUM/ADELSO: Calcified hilar and mediastinal lymph nodes are compatible with old granulomatous disease. No lymphadenopathy. HEART: Heart size is normal with no pericardial effusion. VASCULATURE: No thoracic aortic aneurysm. AXILLA: No adenopathy. CHEST WALL: No masses. No subcutaneous air. HARDWARE/LINES/TUBES: None. UPPER ABDOMEN: Calcified splenic granulomas. MUSCULOSKELETAL: Posterior osteophyte or ossification of the posterior longitudinal ligament in the midthoracic spine atthe level of T8 mildly narrows spinal canal. OTHER: No other significant abnormality. IMPRESSION: 1. No acute findings in the chest. Clinically queried calcification in the right upper lobe is a calcified granuloma. THIS IS AN ELECTRONICALLY VERIFIED FINAL REPORT 07/25/2021 9:42 AM - Electronically signed by Frank Torres M.D. MZ T: Report ID: [id number] Reading Location: [place] [address] US Vein Duplex Upper Extremity Bilateral Complete Result Date: 07/26/2021 Narrative: AboutMyStar Job ID: [id number] [employer] Document ID: [id number] Dictated date/time: [id number] BILATERAL UPPER EXTREMITY VENOUS DUPLEX REASON FOR EXAM Swelling. FINDINGS ON THE RIGHT The right internal jugular, subclavian, axillary demonstrate spontaneous phasic flow that augments and are compressible. The brachiocephalic, basilic demonstrate spontaneous flow and are compressible. FINDINGS ON THE LEFT The left internal jugular, subclavian, axillary demonstrate spontaneous phasic flow thataugments and are compressible. The brachiocephalic and basilic are all spontaneous and are compressible. INTERPRETATION No evidence of deep or superficial venous thrombosis in bilateral upper extremities. JOB ID/VF JOB ID: [id number] No results found for: CBCAUTODIFF, CMP No results found for: CMP US Vein Duplex Upper Extremity Bilateral Complete Amphion Job ID: [id number] Amphion Document ID: [id number] Dictated date/time: [id number] BILATERAL UPPER EXTREMITY VENOUS DUPLEX REASON FOR EXAM Swelling. FINDINGS ON THE RIGHT The right internal jugular, subclavian, axillary demonstrate spontaneous phasic flow that augments and are compressible. The brachiocephalic, basilic demonstrate spontaneous flow and are compressible. FINDINGS ON THE LEFT The left internal jugular, subclavian, axillary demonstrate spontaneous phasic flow that augments and are compressible. The brachiocephalic and basilic are all spontaneous and are compressible. INTERPRETATION No evidence of deep or superficial venous thrombosis in bilateral upper extremities. JOB ID/VF JOB ID: [id number] IMPRESSION: ?? 1. No mass or lymphadenopathy in the neck. ?? 2. No findings to explain the patient's reported brachial plexopathy. If there is continued clinical concern for brachial plexopathy, cervical spine MRI/brachial plexus MRI is a more sensitive evaluation. ?? 3. Air-fluid level in the left maxillary sinus, which can be seen in the setting of acute sinusitis. Please clinically correlate. Alkphos/ fatty liver on US..... No image results found. @IMGMEDHISTORY@ Problems,Assessment & Plan: Assessment and Recommendations: Diagnoses and all orders for this visit: Median nerve compression (G56.00) (Primary) HTN, goal below 140/90 (I10) HLD (lvr029) (E78.5) alkphos elevation (nl GGT) (R74.8) Probably has radicular or other similar compression of right arm in median nerve distribution. Trial of gabapentin. (failed steroids). Refer to ortho. If appt is farther off will go ahead and get cervical spine xray. bp doing well at last visit. And home readings ok. No diet changes. Continue present managemnt. Will readdress HLD post diet. No orders of the defined types were placed in this encounter. Ordered gabapentin Lillian Adam MD There are no Patient Instructions on file for this visit. ESTRA LEADER ESTRA LEADER documented in this encounter Plan of Treatment Not on file documented as of this encounter Visit Diagnoses Diagnosis Median nerve compression- Primary Carpal tunnel syndrome HTN, goal below 140/90 HLD (why560) alkphos elevation (nl GGT) Other nonspecific abnormal serum enzyme levels documented in this encounter Care Teams Measurement Supervisor Relationship Specialty Start Date End Date Lillian Adam MD [address] [address] PCP - General Internal Medicine 12/25/20 Tommy Brownlee MD [address] [place] [address] Referring Physician Obstetrics and Gynecology 01/20/21 documented as of this encounter
--- OUTSIDE RECORDS SUMMARY | 2024-09-19 04:37 | XMS_ITS | Encounter Summary ---
Author Organization [facility] Healthcare Address [address] [place] [address] Care Team Providers Care Entertainment Agent Name Role Phone Lillian Adam MD Primary Care Provider [phone] Tommy Brownlee MD Unavailable [phone] Reason for Visit * Auth/Cert Specialty Diagnoses / Procedures Referred By Zeny shaw Referred To Contact Diagnoses Carpal tunnel syndrome on right Carpal tunnel syndrome on right [G56.01] Procedures MO REVISE MEDIAN N/CARPAL TUNNEL SURG RELEASE RIGHT CARPAL TUNNEL Referral ID Status Reason Start Date Expiration Date Visits Re quested Visits Authorized [id number] 1 1 Encounter Details Date Type Department Care Team (Latest Contact Info) Description 09/09/2021 7:41 AM INJECTION MOLD TECHNICIAN - 09/09/2021 11:44 AM INJECTION MOLD TECHNICIAN Hospital Encounter [facility] OR [address] [place] [address] Rashaad Miller MD [address] [facility] [place] [address] Carpal tunnel syndrome of right wrist (Primary Dx) Discharge Disposition: Discharge to home or self [...] on file Legal Sex Female 8:38 PM INJECTION MOLD TECHNICIAN Gender Identity Not on file Sexual Orientation Not on file documented as of this encounter Last Filed Vital Signs Vital Sign Reading Time Taken Comments Blood Pressure 134/64 09/09/2021 11:30 AM INJECTION MOLD TECHNICIAN Pulse 58 09/09/2021 11:30 AM INJECTION MOLD TECHNICIAN Temperature 36.3 ??C (97.3 ??F) 09/09/2021 11:[address] Respiratory Rate 16 09/09/2021 11:30 AM INJECTION MOLD TECHNICIAN Oxygen Saturation 95% 09/09/2021 11:30 AM INJECTION MOLD TECHNICIAN Inhaled Oxygen Concentration - - Weight 106.2 kg (234 lb 1 oz) 09/09/2021 7:51 AM INJECTION MOLD TECHNICIAN Height 157.5 cm (5' 2 ) 09/09/2021 7:51 AM INJECTION MOLD TECHNICIAN Body Mass Index 42.81 09/09/2021 7:51 AM INJECTION MOLD TECHNICIAN documented in this encounter Discharge Instructions * Attachments The following attachments cannot be sent through Care Everywhere. * General Anesthesia (Discharge Care) (Italian) documented in this encounter Medications at Time [...] Date HYDROcodone-acetami nophen (NORCO) 5-325 mg per tabletIndications:Lise gottliebn,post op pain Take 1 tablet by mouth [...] risk for :Procedure(s): RELEASE RIGHT CARPAL TUNNEL CTION MOLD TECHNICIAN Source Note - Ame Luna PA - 09/08/2021 3:39 PM INJECTION MOLD TECHNICIAN Ortho Hand History and Physical Subjective Patient [...] Rashaad Miller MD at 09/09/2021 8:16 AM INJECTION MOLD TECHNICIAN CTION MOLD TECHNICIAN CTION MOLD TECHNICIAN * Ame Luna PA - 09/08/2021 3:39 [...] Rashaad Miller MD at 09/09/2021 8:16 AM INJECTION MOLD TECHNICIAN CTION MOLD TECHNICIAN CTION MOLD TECHNICIAN documented in this encounter Miscellaneous Notes * Perioperative Nursing Note - Edtia Roper RN - 09/09/2021 11:44 AM INJECTION MOLD TECHNICIAN Patient discharged to home accompanied by daughter, transported via wheelchair by tech. All discharge instructions reviewed, all questions answered. All belongings returned to patient. CTION MOLD TECHNICIAN * Op Note - Rashaad Miller MD - 09/09/2021 11:15 AM CST DATE OF PROCEDURE: 09/09/21 SURGEON: Rashaad Miller MD TOBACCO CHECKOUT CLERK: Marriage Counselor: Arina Menendez RN Physician Curing Press Operator: Sindhu Luna Marriage Counselor Second: Naye Temple RN FIRST ASSIST: Ame [...] applied. She tolerated the procedure well. Ame Luna my Physician's Curing Press Operator's services included preoperative and postoperative assessment and documentation, patient positioning, prep and drape, intraoper ative positioning and retraction, closure and postoperative dressing and postoperative orders. Thissignificantly facilitated the procedure, limiting operative time and the associated coexisting morbidities. No other MD assistance was available. CTION MOLD TECHNICIAN * Pre-Procedure Instructions - Lalita Vargas RN - 08/28/2021 12:46 PM INJECTION MOLD TECHNICIAN We are pleased that you and your doctor have chosen [facility] for your surgery. We hope that the following information will help make your visit a pleasant one. Surgery Date: 09/09/2021 - Please enter through the main entrance at [facility]. Dr. Miller's office will contact you with [...] procedure. Our testing site is located at [address] [place] [address]. Wednesday - Wednesday 8:00 - 4:30 Wednesday [...] your procedure ?? Use no make-up, nail kiswahili, lotions, oils or powders on your skin. [...] please call us. We can be reached [phone]. CTION MOLD TECHNICIAN documented in this encounter Plan of Treatment Not on file documented as of this encounter Procedures Procedure Name Priority Date/Time Associated Diagnosis Comments RELEASE CARPAL TUNNEL 09/09/2021 10:06 AM INJECTION MOLD TECHNICIAN Carpal tunnel syndrome on right Case Notes RT CTR *N/L* POCT HCG, URINE Routine 09/09/2021 8:36 AM INJECTION MOLD TECHNICIAN ECG 12-LEAD STAT 09/09/2021 8:15 AM INJECTION MOLD TECHNICIAN documented in this encounter Results * POCT hCG, urine (09/09/2021 8:36 AM INJECTION MOLD TECHNICIAN) Pathologist [facility] HCG, ur, POC Negative Lot Number [id number] QC Backgroud Clear Acceptable QC Control Line Acceptable Urine 09/09/2021 8:36 AM INJECTION MOLD TECHNICIAN Dalton Davalos MD POINT OF CARE TEST ORDERABLE S Final Result * ECG 12 lead (09/09/2021 8:15 AM INJECTION MOLD TECHNICIAN) Ventricular Rate EKG/Min [address] [facility] Atrial Rate [address] [facility] MO-Interval (MSEC) [address] [facility] QRS-Interval (MSEC) [address] [facility] QT-Interval (MSEC) [address] [facility] QTc [address] [facility] P Ono [address] [facility] R Ono [address] [facility] T Ono [address] [facility] Diagnosis Normal sinus rhythm Normal ECG No previous ECGs available [facility] 09/09/2021 8:15 AM INJECTION MOLD TECHNICIAN 09/09/2021 2:05 PM INJECTION MOLD TECHNICIAN us Dalton Davalos MD ECG ORDERABLES Final Result [facility] documented in this encounter Visit Diagnoses Diagnosis Carpal tunnel syndrome of right wrist- Primary Carpal tunnel syndrome of right wrist documented in this encounter Admitting Diagnoses Diagnosis [...] Pre-Emptive AnalgesiaIndications:Pre-Emptive Analgesia Given 09/09/2021 8:34 AM INJECTION MOLD TECHNICIAN 975 mg dextrose (D10W) 10% bolus 250 mL 250 [...] Call MD for each episode of hypoglycemia. TIRE SHOP MECHANIC STATES GLUTOSE-15 CONTAINS GLUCOSE 40% W/W (50% W/V), Indications: hypoglycemic disorderIndications:hypoglycemic disorder famotidine (PEPCID) tablet 20 mg 20 mg, oral, Once, On Wed09/09/21 at 0845, For 1 dose, Pre-Op, Indications: gastroesophageal reflux diseaseIndications:gastroesophagea l reflux disease Given 09/09/2021 8:34 AM INJECTION MOLD TECHNICIAN 20 mg Lactated Ringer's (LR) infusion 30 mL/hr, intravenous, Continuous, Starting on Wed09/09/21 at 0845, Pre-Op Restarted 09/09/2021 10:06 AM INJECTION MOLD TECHNICIAN New Bag 09/09/2021 8:34 AM INJECTION MOLD TECHNICIAN 30 mL/hr 30 mL/hr lidocaine PF (XYLOCAINE) [...] I, Indications: PainIndications:Pain Given 09/09/2021 10:55 AM INJECTION MOLD TECHNICIAN 5 mg sodium chloride 0.9% flush 0.5-20 [...] Recently Administered Medications Times are shown in INJECTION MOLD TECHNICIAN. Scheduled Medication Order 09/07/2021 09/08/2021 09/09/2021 acetaminophen [...] Call MD for each episode of hypoglycemia. TIRE SHOP MECHANIC STATES GLUTOSE-15 CONTAINS GLUCOSE 40% W/W (50% [...] Call MD for each episode of hypoglycemia. TIRE SHOP MECHANIC STATES GLUTOSE-15 CONTAINS GLUCOSE 40% W/W (50% [...] Count Last Ordered Date First Ordered Date bupivacaine (MARCAINE) 0.5 % (5 mg/mL) preservative free injection 1 09/09/2021 ceFAZolin (ANCEF) 2,000 mg/2 0 mL in [...] 09/09/2021 documented in this encounter Care Teams Entertainment Agent Relationship Specialty Start Date End Date Lillian Adam MD [address] [place] [id number] PCP - General Internal Medicine 12/25/20 Tommy Brownlee MD [address] [facility] [address] [place] [address] Referring Physician Obstetrics and Gynecology 01/20/21 documented as of this encounter
--- OUTSIDE RECORDS SUMMARY | 2024-09-19 04:37 | XMS_ITS | Encounter Summary ---
Author Organization [facility] Address [address] [facility] [address] [place] [address] Care Team Providers Care Exercise Physiology Professor Name Role Phone Lillian Adam MD Primary Care Provider [phone] Tommy Brownlee MD Unavailable [phone] Encounter Details Date Type Department Care Team ([facility] st Contact Info) Description 07/22/2021 Telephone [facility] Primary Care [address] [address] Lillian Adam MD [address] [place] [address] Social History Tobacco Use Types Packs/Day Years [...] on file Legal 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 Once roomed she may wait a little bit-see if shes ok with that. Video may be tricky-best to do video at end of morning slots if cant come in. * Telephone Encounter - Vilma Mcgrath MA - 07/23/2021 2:00 PM CDT Spoke to pt she will cancel CT c spine since denied and get ct soft tissue done as stated , but shewants aa apt for next week to f/u on results you are booked up with new pt and spots are very limited she would like a video. Jerome advise where I can put her at I want to give you enough time * Telephone Encounter - Lillian Adam MD - 07/23/2021 1:25 PM CDT Wait till see ct soft tissue results. * Telephone Encounter - Kamini Mcclendon - 07/22/2021 2:10 PM CDT [address] to [facility] and they approved the CT soft tissue neck but denied the CT C- spine. The lpn medical assistant stated that there was no indication of need for this service. Stated that pt did not undergo anytype of conservative therapy that has been documented and then brought in for a re-eval.This cannotbe revisited for a minimum of 90 days per Caitlin Harris @ [facility]. Called pt and gave her this info and suggested that she cancel CT of C-spine since insurance denied it completely. Pt wants to discuss what to do going forward. documented in this encounter Plan of Treatment Not on file documented as of this encounter Visit Diagnoses Not on filedocumented in this encounter Care Teams Exercise Physiology Professor Relationship Specialty Start Date End Date Lillian Adam MD [facility] [address] PCP - General Internal Medicine 12/25/20 Tommy Brownlee MD [address] [place] [address] Referring Physician Obstetrics and Gynecology 01/20/21 documented as of this encounter
--- OUTSIDE RECORDS SUMMARY | 2024-09-19 04:37 | XMS_ITS | Encounter Summary ---
Author Organization [facility] Address [address] [address] Care Team Providers Care Hot Roll Inspector Name Role Phone Lillian Adam MD Primary Care Provider [phone] Tommy Brownlee MD Unavailable [phone] Reason for Referral * Neurology (Routine) - Closed Specialty Diagnoses / Procedures Referred By Contac t Referred To Contact Procedures EMG/NCV - [facility] Primary Care [address] [place] [address] [place] [phone] Phone: tel: fax: Referral ID Status Reason Start Date Expiration Date Visits Re quested Visits Authorized [id number] Closed 08/20/2021 09/19/2022 1 1 GER AGENCY Encounter Details Date Type Department Care Team (Late st Contact Info) Description 08/20/[address] 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 Gender Identity Not on file Sexual Orientation Not on file documented as of this encounter Plan of Treatment Not on file documented as of this encounter Procedures Procedure Name Priority Date/Time Associated Diagnosis Comments EMG/NCV Routine 08/08/2021 documented in this encounter Results * EMG/NCV - (08/08/2021) Anatomical Region Laterality Modality Other us Historical Provider NEUROLOGY ORDERABLES Maddie l Result documented in this encounter Visit Diagnoses Not on filedocumented in this encounter Care Teams Hot Roll Inspector Relationship Specialty Start Date End Date Lillian Adam MD [address] [place] [address] PCP - General Internal Medicine 12/25/20 Tommy Brownlee MD [address] [place] [address] Referring Physician Obstetrics and Gynecology 01/20/21 documented as of this encounter
--- OUTSIDE RECORDS SUMMARY | 2024-09-19 04:37 | XMS_ITS | Encounter Summary ---
Author Organization [facility] Address [address] [facility] [address] [place] [address] Care Team Providers Care Ticket Worker Name Role Phone Lillian Adam MD Primary Care Provider [phone] Tommy Brownlee MD Unavailable [phone] Reason for Visit * Reason Comments Post-op Encounter Details Date Type Department Care Team (Late st Contact Info) Description 09/22/2021 11:30 AM BUILDING OFFICIAL Office Visit [facility] Hand Surgery [address] [facility] [address] [place] [address] [place] [address] [place] [address] [address] Post-operative state (Primary Dx) Social History Tobacco Use Types [...] on file Legal Sex Female 8:38 PM BUILDING OFFICIAL Gender Identity Not on file Sexual Orientation Not on file documented as of this encounter Progress Notes * Ame Luna PA - 09/22/2021 11:30 AM CST Images from the original note were not included. Patient ID: Dominique Manzano is a 56 y.o. female. Visit Date: 09/22/2021 Chief Complaint: Chief Complaint Patient presents with ??? Right Hand - Post-op HPI: Patient is a 56-year-old female presents today for scheduled postoperative follow-up after right open carpal tunnel release on 09/09/2021. She is 2 weeks postop. She states that she has had significant improvement of her numbness and tingling since her surgery, but does continue to have some numbness to the tip of the long finger. Physical Exam: General: A&O x 3, NAD, Well appearing Eyes: EOMs intact. PERRL. Integument: skin is warm and dry. Neuro: CN II-XII grossly intact. Pt gait is stable, balance WNL. Sensation intact. Cardiovascular: 2+ capillary refill to all upper digits bilaterally. Patient's incision is healing well. There is no surrounding edema, erythema or drainage noted. Sutures are intact. she is neurovascularly intact to tips of upper extremity digits. she has good digital ROM. she can make a fist, and flex/extend at the wrist without difficulty. X-rays/Imaging: Assessment/Plan There are no diagnoses linked to this encounter. Treatment / Plan: Today I removed the patient's sutures and placed Steri-Strips. I did advise her that it can take upwards of 6 months for complete resolution of her symptoms. We recommend no lifting of greater than 5to 10 pounds for one more week, and then she may return to her regular activities. she needs no further scheduled follow- up at this time. However, I have asked her to call with any further questions or concerns. Procedures DUNG Aldridge Cosigned by Rashaad Miller MD at 09/25/2021 8:41 AM BUILDING OFFICIAL DING OFFICIAL DING OFFICIAL documented in this encounter Plan of Treatment Not on file documented as of this encounter Visit Diagnoses Diagnosis Post-operative state- Primary Other postprocedural status documented in this encounter Care Teams Ticket Worker Relationship Specialty Start Date End Date Lillian Adam MD [facility] [address] PCP - General Internal Medicine 12/25/20 Tommy Brownlee MD [address] [place] [address] Referring Physician Obstetrics and Gynecology 01/20/21 documented as of this encounter
--- OUTSIDE RECORDS SUMMARY | 2024-09-19 04:37 | XMS_ITS | Encounter Summary ---
Author Organization [facility] Medical Group Address [address] 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
--- OUTSIDE RECORDS SUMMARY | 2024-09-19 04:37 | XMS_ITS | Encounter Summary ---
Author Organization [facility] Medical [facility] Address [address] [facility] [address] [place] [address] Care Team Providers Care Resolution Analyst Name Role Phone Lillian Adam MD Primary Care Provider [phone] Tommy Brownlee MD Unavailable [phone] Reason for Visit * Reason Onset Date Comments did you want pt to have Gabapentin? 07/30/2021 Encounter Details Date Type Department Care Team ([facility] st Contact Info) Description 07/30/2021 Telephone [facility] Primary Care [address] [address] Lillian Adam MD [facility] [address] did you want pt to have Gabapentin? Social History Tobacco Use Types Packs/Day Years [...] on file Legal Sex Female 8:38 PM ASSOCIATE PROGRAMMER Gender Identity Not on file Sexual Orientation Not on file documented as of this encounter Miscellaneous Notes * Telephone Encounter - Karen Carreon MA - 07/30/2021 8:57 AM ASSOCIATE PROGRAMMER Pt calling for Gabapentin script from yesterday. Please send to [facility], PT...[phone] CIATE PROGRAMMER documented in this encounter Plan of Treatment Not on file documented as of this encounter Visit Diagnoses Not on filedocumented in this encounter Care Teams Resolution Analyst Relationship Specialty Start Date End Date Lillian Adam MD [facility] [address] PCP - General Internal Medicine 12/25/20 Tommy Brownlee MD [address] [address] Referring Physician Obstetrics and Gynecology 01/20/21 documented as of this encounter
--- OUTSIDE RECORDS SUMMARY | 2024-09-19 04:37 | XMS_ITS | Encounter Summary ---
Author Organization [facility] Healthcare Address [address] [place] [address] Care Team Providers Care Monument Installer Name Role Phone Lillian Adam MD Primary Care Provider [phone] Tommy Brownlee MD Unavailable Reason for Referral * Diagnostic Imaging (Routine) - Closed Specialty Diagnoses / Procedures Referred By Zeny t Referred To Contact Diagnoses Localized swelling, mass, or lump of upper extremity, bilateral Neck pain Acute pain of right shoulder Procedures XR Shoulder Right 2 or More Views Lillian Adam MD [address] [place] [address] Phone: tel: fax: [address] [address] Referral ID Status Reason Start Date Expiration Date Visits Re quested Visits Authorized [id number] Closed 07/16/2021 08/15/2022 1 1 Reason for Visit * Diagnostic Imaging (Routine) - Closed Specialty Diagnoses / Procedures Referred By Contivy t Referred To Contact Diagnoses Localized swelling, mass, or lump of upper extremity, bilateral Neck pain Acute pain of right shoulder Procedures XR Shoulder Right 2 or More Views Lillian Adam MD [address] [place] [address] Phone: tel: fax: [address] [address] Referral ID Status Reason Start Date Expiration Date Visits Re quested Visits Authorized [id number] Closed 07/16/2021 08/15/2022 1 1 Encounter Details Date Type Department Care Team (Latest Contact Info) Description 07/18/2021 6:54 AM CDT - 07/18/2021 11:59 PM CDT Hospital Encounter [facility] Diagnostic Imaging [address] [place] [address] Localized swelling, mass, or lump of upper extremity, bilateral; Neck pain; Acute pain of right shoulder Discharge Disposition: Discharge to home or self [...] on file Legal Sex Female 8:38 PM HEATING 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 Any questions can be answered at next visit. ING AND VENTILATING TENDER documented in this encounter Plan of Treatment Not on file documented as of this encounter Procedures Procedure Name Priority Date/Time Associated Diagnosis Comments XR SHOULDER RIGHT 2 OR MORE VIEWS Schedule Routine, Read Routine (OP Routine) 07/18/2021 7:22 AM CDT Localized swelling, mass, or lump of upper extremity, bilateral Neck pain Acute pain of right shoulder documented in this encounter Results * XR Shoulder Right 2 or More [...] signed by Frank Torres M.D. MZ D: ??07/18/2021 2:44 PM T: Report ID: [id number] Reading Location: ??[id number] Procedure Note Frank Torres MD - 07/18/2021 [...] Frank Torres M.D. MZ T: Report ID: [id number] Reading Location: [place] [address] Lillian Adam MD IMG XR PROCEDURES Final Resu lt documented in this encounter Visit Diagnoses Diagnosis Localized swelling, mass, or lump of upper extremity, bilateral Neck pain Cervicalgia Acute pain of right shoulder documented in this encounter Care Teams Monument Installer Relationship Specialty Start Date End Date Lillian Adam MD [facility] [address] PCP - General Internal Medicine 12/25/20 Tommy Brownlee MD [address] [place] [address] Referring Physician Obstetrics and Gynecology 01/20/21 documented as of this encounter
--- OUTSIDE RECORDS SUMMARY | 2024-09-19 04:37 | XMS_ITS | Encounter Summary ---
Author Organization [facility] Healthcare Address [address] [place] [address] Care Team Providers Care Case Management Associate Name Role Phone Lillian Adam MD Primary Care Provider [phone] Tommy Brownlee MD Unavailable [phone] Encounter Details Date Type Department Care Team (Late st Contact Info) Description 09/06/2021 6:05 PM VASCULAR [place] [address] Pre-procedure lab exam Social History Tobacco Use Types Packs/Day Years [...] on file Legal Sex Female 8:38 PM VASCULAR RADIOLOGIST Gender Identity Not on file Sexual Orientation Not on file documented as of this encounter Plan of Treatment Not on file documented as of this encounter Procedures Procedure Name Priority Date/Time Associated Diagnosis Comments COVID-19 CORONAVIRUS RNA Routine 09/06/2021 11:48 AM VASCULAR RADIOLOGIST Pre-procedure lab exam documented in this encounter Results * COVID-19 Coronavirus RNA Nasopharyngeal (09/06/2021 11:48 AM VASCULAR RADIOLOGIST) COVID-19 RNA Not Detected [facility] Comment: Interpretive Data Synonyms for this test include: PCR and NAAT . ??Testing performed by the [facility] Molecular Infectious Disease Laboratory. The 2019-Novel Coronavirus [...] October 24, 2020. First COVID-19 test? Unknown [facility] Employeed in healthcare? No [facility] status? No [facility] Group care resident? No [facility] Hospitalized? Unknown [facility] Is patient in ICU? Unknown [facility] Symptomatic as defined by CDC? No [facility] Nasopharyngeal 09/06/2021 11 :48 AM VASCULAR RADIOLOGIST 09/06/2021 6:18 PM VASCULAR RADIOLOGIST Narrative [facility] - 09/07/2021 3:01 AM VASCULAR RADIOLOGIST What is the reason for testing?->Screening prior to scheduled procedure or surgery (batch) Rashaad Miller MD LAB MICROBIOLOGY - GENER AL ORDERABLES Final Result [facility] Department [place] [address] documented in this encounter Visit Diagnoses Diagnosis Pre-procedure lab exam Pre-procedural laboratory examination documented in this encounter Care Teams Case Management Associate Relationship Specialty Start Date End Date Lillian Adam MD [address] [place] [address] PCP - General Internal Medicine 4/7/21 Tommy Brownlee MD [address] [facility] [address] [place] [address] Referring Physician Obstetrics and Gynecology 01/20/21 documented as of this encounter
--- OUTSIDE RECORDS SUMMARY | 2024-09-19 04:37 | XMS_ITS | Encounter Summary ---
Author Organization [facility] Address [address] [facility] [address] [place] [address] Care Team Providers Care Bulk Receiver Name Role Phone Lillian Adam MD Primary Care Provider [phone] Tommy Brownlee MD Unavailable [phone] Encounter Details Date Type Department Care Team ([facility] st Contact Info) Description 08/05/2021 Telephone [facility] Primary Care [address] [address] Lillian Adam MD [address] [place] [address] Social History Tobacco Use Types Packs/Day [...] on file Legal Sex Female 8:[address] CHANGE ROOF BOLTER Gender Identity Not on file Sexual Orientation Not on file documented as of this encounter Miscellaneous Notes * Telephone Encounter - Vilma Mcgrath MA - 08/05/2021 9:57 AM CST Pt sent [employer] message already ordered nerve conduction study E CHANGE ROOF BOLTER * Telephone Encounter - Kamini Mcclendon - 08/05/2021 8:46 AM CST Pt called and LMOVM requesting to talk to Vilma about Dr Murcia's office telling her she needs a nerve conduction study. Please call pt @ [phone]. E CHANGE ROOF BOLTER documented in this encounter Plan of Treatment Not on file documented as of this encounter Visit Diagnoses Not on filedocumented in this encounter Care Teams Bulk Receiver Relationship Specialty Start Date End Date Lillian Adam MD [address] [place] [address] PCP - General Internal Medicine 12/25/20 Tommy Brownlee MD [address] [address] Referring Physician Obstetrics and Gynecology 01/20/21 documented as of this encounter
--- OUTSIDE RECORDS SUMMARY | 2024-09-19 04:37 | XMS_ITS | Encounter Summary ---
Author Organization [facility] Healthcare Address [address] [place] [address] Care Team Providers Care Pool Installer Name Role Phone Lillian Adam MD Primary Care Provider [phone] Tommy Brownlee MD Unavailable [phone] Encounter Details Date Type Department Care Team (Late st Contact Info) Description 07/17/2021 6:20 AM CDT Lab [facility] Lab [address] [place] [address] Physical exam, annual; Carpal tunnel syndrome of right wrist; Localized swelling, mass, or lump of upper extremity, bilateral; Neck pain; Radiculopathy, cervical; Abnormal CXR; SOB (shortness of breath); Cough; Acute pain of right shoulder; HTN, goal below 140/90; Vitamin D deficiency (17) Social History Tobacco Use Types Packs/Day Years [...] on file Legal 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 Gender Identity Not on file Sexual Orientation Not on file documented as of this encounter Plan of Treatment Not on file documented as of this encounter Procedures Procedure Name Priority Date/Time Associated Diagnosis Comments EGFR Routine 07/17/2021 6:31 AM CDT Physical exam, annual Carpal tunnel syndrome of right wrist Localized swelling, mass, or lump of upper extremity, bilateral Neck pain Radiculopathy, cervical Abnormal CXR SOB (shortness of breath) Cough Acute pain of right shoulder HTN, goal below 140/90 Vitamin D deficiency VITAMIN D 25 HYDROXY Routine 07/17/2021 6:31 AM CDT Physical exam, annual Localized swelling, mass, or lump of upper extremity, bilateral Neck pain Radiculopathy, cervical Abnormal CXR SOB (shortness of breath) Cough Acute pain of right shoulder D-DIMER, QUANTITATIVE Routine 07/17/2021 6:31 AM CDT Localized swelling, mass, or lump of upper extremity, bilateral Neck pain Radiculopathy, cervical Abnormal CXR SOB (shortness of breath) Cough Acute pain of right shoulder COMPREHENSIVE METABOLIC PANEL Routine 07/17/2021 6:31 AM CDT Physical exam, annual Carpal tunnel syndrome of right wrist Localized swelling, mass, or lump of upper extremity, bilateral Neck pain Radiculopathy, cervical Abnormal CXR SOB (shortness of breath) Cough Acute pain of right shoulder HTN, goal below 140/90 Vitamin D deficiency (17) documented in this encounter Results * eGFR (07/17/2021 6:31 AM CDT) [facility] eGFR 84 mL/min/1.7 3 m2 PORFIRIO OLIVAS Comment: Interpretive Data Reference Interval Normal ?>/= 90 mL/min/1.73m2 Mildly decreased* ? 60 - 89 mL/min/1.73m2 Mildly to moderately decreased ?45 - 59 mL/min/1.73m2 Moderately to severely decreased ??30 - 44 mL/min/1.73m2 Severely decreased ?15 - 29 mL/min/1.73m2 Kidney Failure ?< 15 ??mL/min/1.73m2 *Relative to young adult level Estimated glomerular filtration rate is determined by the CKD-EPI equation recommended by the National Kidney Foundation (KDIGO 2012 Clinical Practice Guideline for the Evaluation and Management of Chronic Kidney Disease. Kidney Intnl Suppl Sep 2012;3:1). The CKD-EPI equation should not be used for patients with unstable renal function and has not been validated in children and those over 70. Current interpretive data was last reviewed 2020 Blood 07/17/2021 6:31 AM CDT 07/17/2021 7:51 AM CDT Lillian Adam MD LAB BLOOD ORDERABLES [facility] Performing Organization Address [facility] Co de Phone Number [place] [id number] [facility] [place] [address] * Vitamin D 25 hydroxy (07/17/2021 6:31 AM CDT) Pathologist [facility] Vitamin D 25-OH 53.0 30.0 - 80.0 ng/mL PORFIRIO Blood 07/17/2021 6:31 AM CDT 07/17/2021 7:51 AM CDT us Lillian Adam MD LAB BLOOD ORDERABLES Final R esult [address] [place] [address] * D-dimer, quantitative (07/17/2021 6:31 AM CDT) D-Dimer 430 <=499 ng/mL FEU PORFIRIO Comment: Interpretive data FDA approved the D-dimer, [...] et al. Brit Med J. 2013;346:f2492. Ashley et al. Annals Int Med. 2015;163:701-11. Current interpretive data was last revised on 2019. Blood 07/17/2021 6:31 AM CDT 07/17/2021 7:51 AM CDT us Lillian Adam MD LAB BLOOD ORDERABLES Final R esult [place] [id number] [facility] [place] [address] * (ABNORMAL) Comprehensive metabolic panel (07/17/2021 6:31 AM CDT) Sodium 143 135 - 145 mmol/L [facility] Potassium, pl 4.0 3.3 - 4.9 mmol/L [facility] Chloride 107 97 - 110 mmol/L [facility] CO2 26 22 - 32 mmol/L [facility] Anion gap 10 2 - 15 mmol/L [facility] BUN 13 8 - 25 mg/dL [facility] Creatinine 0.80 0.60 - 1.10 mg/dL [facility] Glucose 117 70 - 199 mg/dL [facility] Comment: Interpretive Data Fasting glucose >/= 126 [...] 2017. Calcium 9.2 8.5 - 10.3 mg/dL [facility] Bilirubin, total 0.6 0.1 - 1.2 mg/dL [facility] Protein, pl 6.9 6.5 - 8.5 g/dL [facility] Albumin 4.1 3.5 - 5.0 g/dL [facility] Alk phos 140(H) 40 - 130 Units/L [facility] ALT 15 7 - 45 Units/L [facility] AST 19 10 - 45 Units/L [facility] Blood 07/17/2021 6:31 AM CDT 07/17/2021 7:51 AM CDT us Lillian Adam MD LAB BLOOD ORDERABLES Final R esult [facility] [address] [facility] Department [place] [address] documented in this encounter Visit Diagnoses Diagnosis Physical exam, annual Carpal tunnel syndrome of right wrist Localized swelling, mass, or lump of upper extremity, bilateral Neck pain Cervicalgia Radiculopathy, cervical Brachial neuritis or radiculitis nos Abnormal CXR Nonspecific (abnormal) findings on radiological and other examination of lung field SOB (shortness of breath) Shortness of breath Cough Acute pain of right shoulder HTN, goal below 140/90 Vitamin D deficiency (17) documented in this encounter Care Teams Pool Installer Relationship Specialty Start Date End Date Lillian Adam MD [address] [place] [address] PCP - General Internal Medicine 12/25/20 Tommy Brownlee MD [address] [id number] Referring Physician Obstetrics and Gynecology 01/20/21 documented as of this encounter
--- OUTSIDE RECORDS SUMMARY | 2024-09-19 04:37 | XMS_ITS | Encounter Summary ---
Author Organization [facility] Healthcare Address [address] [place] [address] Care Team Providers Care Vehicle Mechanic Name Role Phone Lillian Adam MD Primary Care Provider [phone] Tommy Brownlee MD Unavailable [phone] Reason for Referral * MRI/CAT/PET Scan (Routine) - Closed Specialty Diagnoses / Procedures Referred By Contac t Referred To Contact Radiology Diagnoses Localized swelling, mass, or lump of upper extremity, bilateral Neck pain Procedures CT Neck Soft Tissue W Contrast Lillian Adam MD [address] [place] [address] Phone: tel: fax: [address] [phone] Referral ID Status Reason Start Date Expiration Date Visits Re quested Visits Authorized [id number] Closed 07/18/2021 08/15/2022 1 1 * MRI/CAT/PET Scan (Routine) - Closed Specialty Diagnoses / Procedures Referred By Contac t Referred To Contact Radiology Diagnoses Localized swelling, mass, or lump of upper extremity, bilateral Neck pain Abnormal CXR SOB (shortness of breath) Cough Procedures CT Chest W Contrast CT Chest W Contrast Lillian Adam MD [address] [place] [address] Phone: tel: fax: [address] [phone] Referral ID Status Reason Start Date Expiration Date Visits Re quested Visits Authorized [id number] Closed 07/17/2021 08/31/2021 1 1 Reason for Visit * MRI/CAT/PET Scan (Routine) - Closed Specialty Diagnoses / Procedures Referred By Contac t Referred To Contact Radiology Diagnoses Localized swelling, mass, or lump of upper extremity, bilateral Neck pain Abnormal CXR SOB (shortness of breath) Cough Procedures CT Chest W Contrast CT Chest W Contrast Lillian Adam MD [address] [place] [address] Phone: tel: fax: [address] [phone] Referral ID Status Reason Start Date Expiration Date Visits Re quested Visits Authorized [id number] Closed 07/17/2021 08/31/2021 1 1 Encounter Details Date Type Department Care Team (Latest Contact Info) Description 07/25/2021 8:24 AM CDT - 07/25/2021 8:26 AM CDT Hospital Encounter [address] [address] Localized swelling, mass, or lump of upper extremity, bilateral; Neck pain; Abnormal CXR; SOB (shortness of breath); Cough Discharge Disposition: Discharge to home or self [...] on file Legal Sex Female 8:38 PM 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 Will discuss at upcomming visit FORM CONSULTANT * Result Encounter Note - Lillian Adam MD - 07/25/2021 8:26 AM CDT Will discuss all labs and results at upcomming visit. FORM CONSULTANT documented in this encounter Plan of Treatment Not on file documented as of this encounter Procedures Procedure Name Priority Date/Time Associated Diagnosis Comments CT SOFT TISSUE NECK W CONTRAST Schedule Routine, Read Routine (OP Routine) 07/25/2021 9:10 AM CDT Localized swelling, mass, or lump of upper extremity, bilateral Neck pain CT CHEST W CONTRAST Schedule Routine, Read Routine (OP Routine) 07/25/2021 9:05 AM CDT Localized swelling, mass, or lump of upper extremity, bilateral Neck pain Abnormal CXR SOB (shortness of breath) Cough documented in this encounter Results * CT [...] D: ??07/25/2021 9:51 AM T: Report ID: [id number] Reading Location: ??[id number] Procedure Note Frank Torres MD - 07/25/2021 [...] Frank Torres M.D. MZ T: Report ID: [id number] Reading Location: [id number] Lillian Adam MD IMG CT PROCEDURES Final [...] by Frank Torres M.D. MZ D: ??07/25/2021 9:42 AM T: Report ID: [id number] Reading Location: ??[id number] Procedure Note Frank Torres MD - 07/25/2021 [...] 9:42 AM - Electronically signed by Frank WhitneyD. MZ T: Report ID: [id number] Reading Location: [id number] Lillian Adam MD IMG CT PROCEDURES Final Resu lt documented in this encounter Visit Diagnoses Diagnosis Localized swelling, mass, or lump of upper extremity, bilateral Neck pain Cervicalgia Abnormal CXR Nonspecific (abnormal) findings on radiological and other examination of lung field SOB (shortness of breath) Shortness of breath Cough documented in this encounter Administered Medications Inactive Administered Medications - up to 3 most recent administrations Medication Order MAR Action Action Date Dose Rate Site ioversoL (OPTIRAY 350) syringe syringe 100 mL 100 mL, intravenous, Once in imaging, contrast, Starting on Wed07/25/21 at 0906, For 1 dose Contrast Given 07/25/2021 9:09 AM CDT 100 mL documented in this encounter Orders Medications Ordered That Alexis ht Not Have Been Administered Count Last Ordered Date First Ordered Date ioversoL (OPTIRAY 350) syrin ge syringe 100 mL 1 07/25/2021 sodium chloride 0.9% flush 125 mL 1 021 documented in this encounter Care Teams Vehicle Mechanic Relationship Specialty Start Date End Date Lillian Adam MD [address] [place] [address] PCP - General Internal Medicine 12/25/20 Tommy Brownlee MD [address] [place] [address] Referring Physician Obstetrics and Gynecology 01/20/21 documented as of this encounter
--- OUTSIDE RECORDS SUMMARY | 2024-09-19 04:37 | XMS_ITS | Clinical Summary ---
Author Organization [facility] [address] Address [address] [place] [address] Care Team Providers Care Warp Tier Name Role Phone Lillian Adam MD Primary Care Provider [phone] Tommy Brownlee MD Unavailable [phone] Allergies No known active allergies Medications ergocalciferol [...] Vaccination (12+ Y RS) 11/27/2020,10/30/2020 Tdap 11/12/2006 Surgical History Surgery Date Site/Laterality Comments SECTION COLONOSCOPY CARPAL TUNNEL RELEASE Right Medical History Medical History Date Comments Exercise-induced asthma Allergic rhinitis Social History Tobacco Use Types Packs/Day Years [...] on file Legal Sex Female 8:38 PM 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 SERVICE Gender Identity Not on file Sexual Orientation Not on file Obstetrics History Last Filed Vital Signs Vital Sign Reading Time Taken Comments Blood Pressure 134/64 09/09/2021 11:30 AM CHIEF OPTOMETRY SERVICE Pulse 58 09/09/2021 11:30 AM CHIEF OPTOMETRY SERVICE Temperature 36.3 ??C (97.3 ??F) 09/09/2021 11:[address] Respiratory Rate 16 09/09/2021 11:30 AM CHIEF OPTOMETRY SERVICE Oxygen Saturation 95% 09/09/2021 11:30 AM CHIEF OPTOMETRY SERVICE Inhaled Oxygen Concentration - - Weight 106.2 kg (234 lb 1 oz) 09/09/2021 7:51 AM CHIEF OPTOMETRY SERVICE Height 157.5 cm (5' 2 ) 09/09/2021 7:51 AM CHIEF OPTOMETRY SERVICE Body Mass Index 42.81 09/09/2021 7:51 AM CHIEF OPTOMETRY SERVICE Plan of Treatment Health Maintenance Due Date Last Done Comments Colon Cancer Screening-Colonoscopy 1967 Hepatitis C Screening 1967 Pneumococcal vaccine <65 (1 of 2 - PCV) 1973 Hepatitis B Screening 1985 DTaP/Tdap/Td Vaccine (2 - Td or Tdap) 11/12/2016 Zoster Vaccine (1 of 2) 2017 Cervical Cancer Screening 06/04/2021 06/04/2020 Breast Cancer Screening-Mammogram 07/11/2021 020 Depression Screening 01/20/2022 01/20/2021 Regular Well Visit/Exam 18-64 07/16/2022 07/16/2021 Covid-19 Vaccine (3 - season) 05/21/202406/2021, 10/30/2020 Influenza Vaccine (#1) 2024 07/04/2020 Procedures Procedure Name Priority Date/Time Associated Diagnosis Comments HM MAMMOGRAPHY Routine 07/11/2020 HM PAP SMEAR WITH HPV Routine 06/04/2020 from Last 3 Months or Most Recently Relevant to Health Maintenance Results * MAMMOGRAPHY (07/11/2020) us Historical Provider HEALTH MAINTENANCE Final Result * HM PAP SMEAR WITH HPV (06/04/2020) us Historical Provider HEALTH MAINTENANCE Final Result from Last 3 Months or Most Recently Relevant to Health Maintenance Insurance [address] [place] [address] CHOICE PLUS [place] [id number] Care Teams Warp Tier Relationship Specialty Start Date End Date Lillian Adam MD [address] [place] [address] PCP - General Internal Medicine 12/25/20 Tommy Brownlee MD [address] [facility] [address] [place] [address] Referring Physician Obstetrics and Gynecology 01/20/21
--- OUTSIDE RECORDS SUMMARY | 2024-09-19 04:37 | XMS_ITS | Encounter Summary ---
Author Organization [facility] Address [address] [facility] [address] [place] [address] Care Team Providers Care Trencher Driver Name Role Phone Lillian Adam MD Primary Care Provider [phone] Tommy Brownlee MD Unavailable [phone] Reason for Visit * Reason Onset Date Comments Test Results 07/17/2021 labwork Encounter Details Date Type Department Care Team ([facility] st Contact Info) Description 07/17/2021 Telephone [facility] Primary Care [address] [phone] Lillian Adam MD [facility] [address] Test Results (labwork ) Social History Tobacco Use Types Packs/Day Years [...] on file Legal Sex Female 8:38 PM 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 BALER Gender Identity Not on file Sexual Orientation Not on file documented as of this encounter Miscellaneous Notes * Telephone Encounter - Lisette Dong MA - 07/17/2021 10:08 AM CDT Pt called requesting Lab results documented in this encounter Plan of Treatment Not on file documented as of this encounter Visit Diagnoses Not on filedocumented in this encounter Care Teams Trencher Driver Relationship Specialty Start Date End Date Lillian Adam MD [address] [place] [address] PCP - General Internal Medicine 12/25/20 Tommy Brownlee MD [address] [address] Referring Physician Obstetrics and Gynecology 01/20/21 documented as of this encounter
--- OUTSIDE RECORDS SUMMARY | 2024-09-19 04:38 | XMS_ITS | Encounter Summary ---
Author Organization [facility] Address [address] 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 Gender Identity Not on file Sexual Orientation Not on file documented as of this encounter Plan of Treatment Not on file documented as of this encounter Procedures Procedure Name Priority Date/Time Associated Diagnosis Comments MAMMOGRAPHY Routine 07/11/2020 HM PAP SMEAR WITH HPV Routine 06/04/2020 documented in this encounter Results * HM MAMMOGRAPHY (07/11/2020) us Historical Provider HEALTH MAINTENANCE Final Result * HM PAP SMEAR WITH HPV (06/04/2020) us Historical Provider HEALTH MAINTENANCE Final Result documented in this encounter Visit Diagnoses Not on filedocumented in this encounter Care Teams Orchard Manager Relationship Specialty Start Date End Date Lillian Adam MD [facility] [address] PCP - General Internal Medicine 12/25/20 Tommy Brownlee MD [address] [place] [address] Referring Physician Obstetrics and Gynecology 01/20/21 documented as of this encounter
--- OUTSIDE RECORDS SUMMARY | 2024-09-19 04:38 | XMS_ITS | Encounter Summary ---
Author Organization [facility] Address [address] [address] Care Team Providers Care Ship Propeller Finisher Name Role Phone Lillian Andujar MD Primary Care Provider [phone] Tommy Brownlee MD Unavailable [phone] Reason for Visit * Reason Comments Numbness RT arm numbness for 1 month. 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 Gender Identity Not on file Sexual Orientation Not on file documented as of this encounter Last Filed Vital Signs Vital Sign Reading Time Taken Comments Blood Pressure 122/78 06/12/2021 1:46 PM CDT Pulse 70 06/12/2021 1:46 PM CDT Temperature 35.7 ??C (96.3 ??F) 06/12/2021 1:46 PM CD T Respiratory Rate 16 06/12/2021 1:46 PM CDT Oxygen Saturation 99% 06/12/2021 1:46 PM CDT Inhaled Oxygen Concentration - - Weight 108 kg (238 lb) 06/12/2021 1:46 PM CDT Height 157.5 cm (5' 2 ) 06/12/2021 1:46 PM CDT Body Mass Index 43.53 06/12/2021 1:46 PM CDT documented in this encounter Patient Instructions * Patient Instructions* Grant St Jr., MD - 06/12/2021 1:45 PM CDT Images from the original note were not included. Patient Education Carpal Tunnel Syndrome CARE MANAGEMENT ASSISTANT: Carpal tunnel syndrome (CTS) is a condition that causes pressure to build in the carpal tunnel. Thecarpal tunnel is a small area between bones and tissues in your wrist. Swelling in this area puts pressure on the median nerve. The median nerve controls muscles and feeling in the hand. Common signs and symptoms: ?? Dull, sharp, or shooting pain in your hand ?? Numbness, tingling, or a burning feeling in your thumb, first finger, and middle finger ?? Arm pain that may extend to your shoulder ?? Weakness in your hand ?? Swelling in your hand ?? Not being able to control how your hand moves, or you drop objects Seek care immediately if: ?? You suddenly lose feeling in your hand or fingers and you cannot move them. ?? Your hand suddenly changes color. Contact your healthcare provider if: ?? Your symptoms get worse. ?? Your hand and fingers are so weak that you cannot grab, squeeze, or lift items. ?? You have questions or concerns about your condition or care. Treatment may not be needed. If your symptoms continue or are severe, you may need any of the following: ?? NSAIDs may be recommended to decrease swelling and pain. NSAIDs are available without a doctor'sorder. Ask your healthcare provider which medicine is right for you and how much to take. Take as directed. NSAIDs can cause stomach bleeding or kidney problems if not taken correctly. If you take blood thinning medicine, always ask your healthcare provider if NSAIDs are safe for you. ?? Steroid injections may help decrease pain and swelling. Steroid medicine is injected into the carpal tunnel. ?? Transcutaneous electric nerve stimulation uses mild electrical impulses to help decrease your wrist pain. ?? Surgery called decompression may be used to take pressure off of the median nerve in your wrist. Manage your symptoms: ?? Apply ice to your wrist. Ice helps decrease swelling and pain in your wrist. Ice may also help prevent tissue damage. Use an ice pack, or put crushed ice in a plastic bag. Cover the ice pack with a towel. Place it on your wrist for 15 to 20 minutes every hour, or as directed. ?? Rest your hands. Let your hands rest for a short time between repetitive motions, such as typing. If you feel pain, stop what you are doing and gently massage your wrist and hand. ?? Get physical and occupational therapy, if directed. Physical therapists will show you ways to exercise and strengthen your wrist. Occupational therapists will show you safe ways to use your wrist while you do your usual activities. ?? Use a wrist splint as directed. A splint will keep your wrist straight or in a slightly bent position. A wrist splint decreases pressure on the median nerve by letting your wrist rest. You may need to wear the splint for up to 8 weeks. You may need to wear it at night. Follow up with your healthcare provider as directed: Write down your questions so you remember to ask them during your visits. ?? 2017 [employer] Information is for End User's use only and may not be sold, redistributed or otherwise used for commercial purposes. All illustrations and images included in CareNotes?? are the copyrighted property of [employer], [employer]. or [employer]. The above information is an clinical rehabilitation aide only. It is not intended as medical advice for individual conditions or treatments. Talk to your doctor, nurse or pharmacist before following any medical regimen to see if it is safe and effective for you. documented in this encounter Ordered Prescriptions Prescription Sig Dispense Quantity Refills Last Filled Start Date End Date meloxicam (MOBIC) 7.5 mg tabletIndications:O steoarthritis Take 1 tablet (7.5 mg total) by mouth daily 30 tablet 1 06/12/2021 documented in this encounter Progress Notes * Grant St Jr., MD - 06/12/2021 1:45 PM CDT Images from the original note were not included. Patient ID: Dominique Manzano is a 56 y.o. female. Chief Complaint. Chief Complaint Patient presents with ??? Numbness RT arm numbness for 1 month. ??? Follow-up review labs ordered by dr andujar 03/15/21 HPI. Patient is a 56 y.o. female She is here for follow-up for lab work done on 3 months prior Also is having rigght handed figner numbness, tingling. 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 She is right handed as well. Wanted to be sure this was nothing serious. Current Medications: Outpatient Encounter Medications as of 06/12/2021 Medication Sig Dispense Refill ??? ergocalciferol (VITAMIN D) 50,000 unit capsule TAKE 1 CAPSULE BY MOUTH ONE TIME PER WEEK 12 capsule 0 ??? meloxicam (MOBIC) 7.5 mg tablet Take 1 tablet (7.5 mg total) by mouth daily 30 tablet 1 No facility-administered encounter medications on file as of 06/12/2021. Review of Systems: Constitutional symptoms: No complaints of recent weight loss/gain, no fever/chills, no lethargy/changes in sleep pattern HEENT: No recent trauma, no changes in vision, no changes in hearing or new onset of hearing loss, no changes in smell, no dysphagia or soreness of throat Cardiovascular: No new chest pains, palpitations Respiratory: No new SOB, dyspnea or cough or wheeze Abdominal: No changes in BM, hematochezia, or abdominal pain : No dysuria, hematuria or incontinence MSK: No joint pain, myalgia or new onset of weakness Skin: No new lesions including changes in moles, rashes Neuro: No new neurological deficits Psych: No complaints of depression, SI, HI or hallucinations BP 122/78 Pulse 70 Temp (!) 35.7 ??C (96.3 ??F) Resp 16 Ht 157.5 cm (5' 2 ) Wt 108 kg (238 lb) SpO2 99% BMI 43.53 kg/m?? Physical Exam: General Appearance: NAD, patient is AOx3. HEENT: Atraumatic, PEERLA MSK: positive phalens signt EXT: Pulses equal throughout Skin: Normal turgor, color and temperature Neuro: No focal or motor deficits noted. Psych: Normal speech pattern, orientation, and mood Assessment & Plan: Diagnoses and all orders for this visit: Carpal tunnel syndrome of right wrist (Primary) Assessment & Plan: Positive Phalen sign HPI consistent and high risk with job, BMI Provided spliting mobic, offered PT but she wants to hold off for now Orders: - meloxicam (MOBIC) 7.5 mg tablet; Take 1 tablet (7.5 mg total) by mouth daily Vitamin D deficiency (17) Assessment & Plan: Reviewed labs, encouraged her to keep up with the prescrtiption Vit D. Everything else was WNL BMI Follow-up includes: education provided. My total encounter time on 06/12/2021 was 30 minutes which was spent in the activities documented inthe note. This includes time spent prior to the visit and after the visit in direct care of the patient. This time does not include time spent in any separately reportable services. Grant St Jr., MD documented in this encounter Miscellaneous Notes * Assessment & Plan Note - Grant St Jr., MD - 06/12/2021 2:11 PM CDT Associated Problem(s): Carpal tunnel syndrome of right wrist Positive Phalen sign HPI consistent and high risk with job, BMI Provided spliting mobic, offered PT but she wants to hold off for now * Assessment & Plan Note - Grant St Jr., MD - 06/12/2021 2:10 PM CDT Associated Problem(s): Vitamin D deficiency (17) Reviewed all labs with her, including h.pylori and celiac testing, encouraged her to keep up with the prescrtiption Vit D. Everything else was WNL documented in this encounter Plan of Treatment Not on file documented as of this encounter Visit Diagnoses Diagnosis Carpal tunnel syndrome of right wrist- Primary Vitamin D deficiency (17) documented in this encounter Care Teams Ship Propeller Finisher Relationship Specialty Start Date End Date Lillian Andujar MD [facility] [address] PCP - General Internal Medicine 12/25/20 Tommy Brownlee MD [address] [place] [address] Referring Physician Obstetrics and Gynecology 01/20/21 documented as of this encounter
--- OUTSIDE RECORDS SUMMARY | 2024-09-19 04:38 | XMS_ITS | Encounter Summary ---
Author Organization [facility] Address [address] [facility] [address] [place] [id number] Care Team Providers Care Energy Conservation Representative Name Role Phone Lillian Adam MD Primary Care Provider [phone] Tommy Brownlee MD Unavailable [phone] Reason for Visit * Reason Comments New Patient est care Encounter Details Date Type Department Care Team (Latest Contact Info) Description 01/20/2021 3:30 PM CDT Office Visit [facility] Primary Care [address] [phone] Lillian Adam MD [address] [place] [phone] HTN, goal below 140/90 (Primary Dx); Thyromegaly; Bruit of right carotid artery; Lymphadenopathy, supraclavicular left; Epigastric abdominal tenderness without rebound tenderness; Loose stools; Left upper quadrant abdominal tenderness without rebound tenderness; Cough; Left lateral epicondylitis; Chronic vasomotor rhinitis; Polyarthralgia Social History Tobacco Use Types Packs/Day Years [...] on file 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 Gender Identity Not on file Sexual Orientation Not on file documented as of this encounter Last Filed Vital Signs Vital Sign Reading Time Taken Comments Blood Pressure 124/72 01/20/2021 3:24 PM CDT Pulse 66 01/20/2021 3:24 PM CDT Temperature 35.9 ??C (96.7 ??F) 01/20/2021 3:24 PM CD T Respiratory Rate 18 01/20/2021 3:24 PM CDT Oxygen Saturation 97% 01/20/2021 3:24 PM CDT Inhaled Oxygen Concentration - - Weight 107.5 kg (237 lb) 01/20/2021 3:24 PM CDT Height 157.5 cm (5' 2 ) 01/20/2021 3:24 PM CDT Body Mass Index 43.35 01/20/2021 3:24 PM CDT documented in this encounter Patient Instructions * Patient Instructions* Lillian Adam MD - 01/20/2021 3:30 PM CDT 1.HTN- monitor blood pressure at home both lying and standing in the morning and in the evening. Note any trends with food,position. Get OMRON. Arm cuff, plug in 2.bruit on right side of neck with possible palpable thyroid- Check TFT's and US (thyroid and carotid). Reactionary to epigastric area vs causing. Of note Right arm blood pressure is 20pts lower than left (right normally>left). Possible shunting? 3.multiple vasomotor symptoms: A. bp shot up in office after felt nervous, B. exercise induced asthma as child, C. vasomotor rhinitis, D.vasomotor like triggers to bronchitis: wt gain after delivered daughter triggered start of cold induced bronchitis relieved with zpack (not albuterol), and triggered with eating(PNS triggered silent reflux?) 4. Epigastric>LUQ>RUQ tenderness on exam w/ left supraclavical tenderness- hiatal hernia w/ silent reflux (H pylori check later dank w/ trip to [place] hisotry and epigastric tenderness. 5. .worsening headache-last 2 weeks. To readdress (vasomotor? Vs from bp?) 6.left supraclavicular tenderness- Soft tissue vs DIPESH? may be old from left underarm liposuction vsleft arm epicondylitis. Vs from GI 7.suspect VERONICA-will need to readdress (snoring,crowded airways,high bp,wt gain) 8. 4. documented in this encounter Progress Notes * Lillian Adam MD - 01/20/2021 3:30 PM CDT Images from the original note were not included. Patient ID: Dominique Manzano is a 55 y.o. female. Chief Complaint. Chief Complaint Patient presents with ??? New Patient est care Patient Care Team: Lillian Adam MD as PCP - General (Internal Medicine) Tommy Brownlee MD as Referring Physician (Obstetrics and Gynecology) HPI. Patient is a 55 y.o. female here to establish care and concern about high blood pressure Background One daughter Kerry Lee. 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 Lifestyle/Habits Caffiene: 3-4cup coffee/week . Pepsi a couple cans/month Alcohol occasional wine/month Tobacconever Exercise-boot camp before covid. After covid working out at home Diet- all hong konger diet HPI Exercise induced childhood asthma-tightness. Sob. Seasonal allergies- started 10 years ago. December .usuall otc coughing/pnd. No itching. Some in fall.ok. Headache this Bronchitis recurrent winter-began After gave to daughter.gained 70 pounds during .symptoms of tightness also occasional with cough. Mostly w/ cold temp of fan or Winter . Eating irritating and triggers bonchitis. Usually takes antibiotic (helps) and inhaler(never helps) GERD-no bitter taste.no heartburn.[place] Possible extraesophageal? Knee pain Occasional. Most with not moveing. Updownstair. 5 years. Left more than right post tibial. Menopause-hot flashes. Sleep Apnea Screen + for : Hypersomnia InsomniaSnoringNocturia rare Elevated bp bp up in last 1-2 years. 120/60 now 164/81(sinus infection). 130-140/ Gained 20 pounds in past couple years. Obesity Struggling wt loss. Diet/exercise. Tried stopping but sweet tooth. Review of Systems: Review of Systems - History obtained from patient Review of Systems Constitutional: Negative. Negative for chills and fever. HENT: Positive for postnasal drip and sore throat. Negative for congestion and hearing loss. Eyes: Negative for pain and itching. Respiratory: Positive for cough and shortness of breath. Negative for apnea, choking, chest tightness, wheezing and stridor. Cardiovascular: Positive for leg swelling. Negative for chest pain and palpitations. Gastrointestinal: Positive for diarrhea (loose). Endocrine: Negative for cold intolerance, heat intolerance, polydipsia and polyuria. Genitourinary: Negative. Musculoskeletal: Positive for arthralgias. Negative for joint swelling and myalgias. Allergic/Immunologic: No seasonal allergies. Neurological: Negative. Hematological: Negative. Psychiatric/Behavioral: Negative. All other systems reviewed and are negative. Breast: Negative for tenderness. Past Social,Medical,family Hx: Past Medical History: Diagnosis Date ??? Exercise-induced asthma No past surgical history on file. Social History Tobacco Use ??? Smoking status: Never Smoker ??? Smokeless tobacco: Never Used Substance Use Topics ??? Alcohol use: Not on file No family history on file. Current Medications and Allergies: No Known Allergies No outpatient encounter medications on file as of 01/20/2021. No facility-administered encounter medications on file as of 01/20/2021. Physical Exam: Constitutional: Body mass index is 43.35 kg/m??. Vitals: 01/20/21 1524 BP: 124/72 Pulse: 66 Resp: 18 Temp: (!) 35.9 ??C (96.7 ??F) SpO2: 97% Weight: 107.5 kg (237 lb) Height: 157.5 cm (5' 2 ) Physical Exam 160/70left . . 140/65 right HEENT-right thyroid palpable with bruit right. 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 Relievedwith pressign on tendon. Left underarm scar and fibrous tissue (from old liposuction). Left costochondral (lowest rib) tenderness Lungs-CTA CV-RRR. No murmur EXT-slight pretibial edema pitting Abd-epigastric tendenss>>RUQ and LUQ. Neg kidney punch. Results/Data: Old records were reviewed. Old records were not requested. CHEMISTRY 07/07/13901 Sodium 139 Potassium 3.8 Chloride 103 Carbon Dioxide 28 BUN 8 Glucose 96 Creatinine 0.8 Calcium 8.9 Albumin 3.9 Total Protein 7.2 Kidney Disease Stage > 90 AST 14 ALT 9 Alkaline Phosphatase 86 Total Bilirubin 0.7 GFR 07/07/13901 Kidney Disease Stage > 90 LIPIDS HEMATOLOGY 07/07/13901 WBC 5.6 RBC 4.22 Hemoglobin 12.2 MCV 87.2 MCH 28.9 Plt Count 266 07/07/13901 Iron 83 TIBC 307 Transferrin % Sat 27 Ferritin 43.8 ESR 32* Vitamin B12 307 Endocrinology THYROID 07/07/13901 TSH 1.05 VitD/Calcium/Bone 07/07/13901 Calcium 8.9 PCOS/ VITAMINS/MINERALS 07/07/13901 Vitamin B12 307 GI 07/07/13901 AST 14 ALT 9 Alkaline Phosphatase 86 INFLAMATION 07/07/13901 ESR 32* Ferritin 43.8 DM 07/07/13901 Hemoglobin 12.2 Hct 36.8 Rheumatologic 07/07/13901 ESR 32* Ferritin 43.8 Transferrin % Sat 27 07/07/13901 CUCO Screen None Detected No image results found. No results found. No results found for: CBCAUTODIFF, CMP No results found for: CMP Assessment & Plan: Diagnoses and all orders for this visit: HTN, goal below 140/90 (Primary) Comments: workup. appears bouncing around. vasomotor??. right<left. Thyromegaly - US Thyroid; Future - TSH; Future - T4, free; Future - T3, free; Future Bruit of right carotid artery - US Carotids Duplex Bilateral; Future Lymphadenopathy, supraclavicular left Epigastric abdominal tenderness without rebound tenderness Loose stools Left upper quadrant abdominal tenderness without rebound tenderness - Amylase; Future - Lipase; Future - Gamma GT; Future - Vitamin D 25 hydroxy; Future - Vitamin B12; Future - CBC with auto differential; Future - Comprehensive metabolic panel; Future - US Abdomen Limited; Future Cough - XR Chest Pa Lateral 2 Vw; Future Left lateral epicondylitis Comments: inter extension Chronic vasomotor rhinitis Polyarthralgia Comments: hands in am (minutes). medial knees Lillian Adam MD documented in this encounter Plan of Treatment Scheduled Orders Name Type Priority Associated Diagnoses Orde r Schedule Amylase Lab Routine Thyromegaly Bruit of right carotid artery Lymphadenopathy, supraclavicular left Epigastric abdominal tenderness without rebound tenderness Loose stools Left upper quadrant abdominal tenderness without rebound tenderness Expected: 01/20/2021, Expires: 01/20/2022 Lipase Lab Routine Thyromegaly Bruit of right carotid artery Lymphadenopathy, supraclavicular left Epigastric abdominal tenderness without rebound tenderness Loose stools Left upper quadrant abdominal tenderness without rebound tenderness Expected: 01/20/2021, Expires: 01/20/2022 Gamma GT Lab Routine Thyromegaly Bruit of right carotid artery Lymphadenopathy, supraclavicular left Epigastric abdominal tenderness without rebound tenderness Loose stools Left upper quadrant abdominal tenderness without rebound tenderness Expected: 01/20/2021, Expires: 01/20/2022 TSH Lab Routine Thyromegaly Bruit of right carotid artery Lymphadenopathy, supraclavicular left Epigastric abdominal tenderness without rebound tenderness Loose stools Left upper quadrant abdominal tenderness without rebound tenderness Expected: 01/20/2021, Expires: 01/20/2022 T4, free Lab Routine Thyromegaly Bruit of right carotid artery Lymphadenopathy, supraclavicular left Epigastric abdominal tenderness without rebound tenderness Loose stools Left upper quadrant abdominal tenderness without rebound tenderness Expected: 01/20/2021, Expires: 01/20/2022 T3, free Lab Routine Thyromegaly Bruit of right carotid artery Lymphadenopathy, supraclavicular left Epigastric abdominal tenderness without rebound tenderness Loose stools Left upper quadrant abdominal tenderness without rebound tenderness Expected: 01/20/2021, Expires: 01/20/2022 Vitamin D 25 hydroxy Lab Routine Thyromegaly Bruit of right carotid artery Lymphadenopathy, supraclavicular left Epigastric abdominal tenderness without rebound tenderness Loose stools Left upper quadrant abdominal tenderness without rebound tenderness Expected: 01/20/2021, Expires: 01/20/2022 CBC with auto differential Lab Routine Thyromegaly Bruit of right carotid artery Lymphadenopathy, supraclavicular left Epigastric abdominal tenderness without rebound tenderness Loose stools Left upper quadrant abdominal tenderness without rebound tenderness Expected: 01/20/2021, Expires: 01/20/2022 Comprehensive metabolic panel Lab Routine Thyromegaly Bruit of right carotid artery Lymphadenopathy, supraclavicular left Epigastric abdominal tenderness without rebound tenderness Loose stools Left upper quadrant abdominal tenderness without rebound tenderness Expected: 01/20/2021, Expires: 01/20/2022 Hemoglobin A1c Lab Routine Thyromegaly Bruit of right carotid artery Lymphadenopathy, supraclavicular left Epigastric abdominal tenderness without rebound tenderness Loose stools Left upper quadrant abdominal tenderness without rebound tenderness Expected: 01/20/2021, Expires: 01/20/2022 Lipid panel Lab Routine Thyromegaly Bruit of right carotid artery Lymphadenopathy, supraclavicular left Epigastric abdominal tenderness without rebound tenderness Loose stools Left upper quadrant abdominal tenderness without rebound tenderness Expected: 01/20/2021, Expires: 01/20/2022 URINALYSIS, COMPLETE W/REFLEX TO CULTURE Lab Routine Thyromegaly Bruit of right carotid artery Lymphadenopathy, supraclavicular left Epigastric abdominal tenderness without rebound tenderness Loose stools Left upper quadrant abdominal tenderness without rebound tenderness Expected: 01/20/2021, Expires: 01/20/2022 Albumin Creatinine Ratio, Urine Lab Routine Thyromegaly Bruit of right carotid artery Lymphadenopathy, supraclavicular left Epigastric abdominal tenderness without rebound tenderness Loose stools Left upper quadrant abdominal tenderness without rebound tenderness Expected: 01/20/2021, Expires: 01/20/2022 documented as of this encounter Visit Diagnoses Diagnosis HTN, goal below 140/90- Primary Thyromegaly Goiter, unspecified Bruit of right carotid artery Lymphadenopathy, supraclavicular left Epigastric abdominal tenderness without rebound tenderness Loose stools Abnormal feces Left upper quadrant abdominal tenderness without rebound tenderness Cough Left lateral epicondylitis Chronic vasomotor rhinitis Chronic rhinitis Polyarthralgia Pain in joint, multiple sites documented in this encounter Care Teams Energy Conservation Representative Relationship Specialty Start Date End Date Lillian Adam MD [facility] [address] PCP - General Internal Medicine 12/25/20 Tommy Brownlee MD [address] [place] [address] Referring Physician Obstetrics and Gynecology 01/20/21 documented as of this encounter
--- OUTSIDE RECORDS SUMMARY | 2024-09-19 04:38 | XMS_ITS | Encounter Summary ---
Author Organization [facility] Address [address] [address] Care Team Providers Care Form Setter [employer] Forms Name Role Phone Lillian Adam MD Primary Care Provider [phone] Tommy Brownlee MD Unavailable [phone] Reason for Visit * Reason Comments Follow-up review labs from 01/19 10/10, Also review XR Chest, US thyroid, abd, Carotids from 02/07/21 . Encounter Details Date Type Department Care Team (Late st Contact Info) Description 02/25/2021 4:00 PM CDT Office Visit [facility] Primary Care [address] [place] [phone] Lillian Adam MD [address] [place] [phone] Bruit of right carotid artery (Primary Dx); HTN, goal below 140/90; Polyarthralgia; Vitamin D deficiency (17); Prediabetes; HLD ([id number]); B12 deficiency (2012); Gastrointestinal disorder; Atherosclerosis of both carotid arteries; Morbid obesity with BMI of 40.0-44.9, adult (CMS/HCC); Hepatic steatosis; Right apex Lung calcification-to readdress; alkphos elevation (nl GGT) Social History Tobacco [...] on file Legal Sex Female 8:38 PM [employer] Gender Identity Not on file Sexual Orientation Not on file documented as of this encounter Last Filed Vital Signs Vital Sign Reading Time Taken Comments Blood Pressure 120/66 02/25/2021 4:10 PM CDT Pulse 71 02/25/2021 4:10 PM CDT Temperature 35.7 ??C (96.3 ??F) 02/25/2021 4:10 PM CD T Respiratory Rate 18 02/25/2021 4:10 PM CDT Oxygen Saturation 99% 02/25/2021 4:10 PM CDT Inhaled Oxygen Concentration - - Weight 109.3 kg (241 lb) 02/25/2021 4:10 PM CDT Height 157.5 cm (5' 2 ) 02/25/2021 4:10 PM CDT Body Mass Index 44.08 02/25/2021 4:10 PM CDT documented in this encounter Patient Instructions * Patient Instructions* Lillian Adam MD - 02/25/2021 4:00 PM CDT 1. Plaque on carotids ,15% B/L--(microvascular disease) 1. review blood sugars (see the sheet for checking blood sugar either intense check or over time-pre and 2hr post meal) 2.HTN- if diabetic bp <130/85 If not diabetic <140/90 3.cholesterol (ldl 138)- diet /exercise if diabetic statin 4. veronica (vit D) 5. Any aggressive inflamation (VERONICA,alkphos gallbladder, stools,hormone/PTH,arthritis) PTH,celiac, hpylori,alkphos frx PLAN 1. Get blood work. After which start vit D replacement. Once a week. See what symptoms respond. 3mo(vit D ) 2. 3mo to go over or video visit to go over blood to get a better quicker plan recom- sleep study. Once we have initial blood results GI referral for multiple reasons (hints of something going on with gut) documented in this encounter Ordered Prescriptions Prescription Sig Dispense Quantity Refills Last Filled Start Date End Date ergocalciferol (VITAMIN D) 50,000 unit capsuleIndications :Vitamin D deficiency Take 1 capsule (50,000 Units total) by mouth once a week 12 capsule 02/25/2021 documented in this encounter Progress Notes * Lillian Adam MD - 02/25/2021 4:00 PM CDT Images from the original note were not included. Patient ID: Dominique Manzano is a 55 y.o. female. Chief Complaint. Chief Complaint Patient presents with ??? Follow-up review labs from 02/07/21, Also review XR Chest, US thyroid, abd, Carotids from 02/07/21 . Patient Care Team: Lillian Adam MD as PCP - General (Internal Medicine) Tommy Brownlee MD as Referring Physician (Obstetrics and Gynecology) HPI. Patient is a 55 y.o. female here to establish care and concern about high blood pressure Background One daughter Kerry 23. 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 Lifestyle/Habits Caffiene: 3-4cup coffee/week . Pepsi a couple cans/month Alcohol occasional wine/month Tobacconever Exercise-boot camp before covid. After covid working out at home Diet- all spanish diet HPI VAsomotor symptoms: Exercise induced childhood asthma-tightness. Sob.,seasonal allergies,chronic cough triggered w/ wt gain (veronica?),cold temp,food. Menopause-hot flashes. Cough & Vasomotor rhinitis(silent gerd?) Knee pain Occasional. Most with not moveing. Updownstair. 5 years. Left more than right post tibial. Sleep Apnea Screen + for : Hypersomnia InsomniaSnoringNocturia rare HTN bp up in last 1-2 years. 120/60 now 164/81(sinus infection). 130-140/Gained 20 pounds in past couple years. No readings since last visit. Obesity Struggling wt loss. Diet/exercise. Tried stopping [...] Medical History: Diagnosis Date ??? Exercise-induced asthma History reviewed. No pertinent surgical history. Social History Tobacco Use ??? Smoking status: Never Smoker ??? Smokeless tobacco: Never Used Substance Use Topics ??? Alcohol use: Not on file History reviewed. No pertinent family history. Current Medications and Allergies: No Known Allergies Outpatient Encounter Medications as of 02/25/2021 Medication Sig Dispense Refill ??? ergocalciferol (VITAMIN D) 50,000 unit capsule Take 1 capsule (50,000 Units total) by mouth once a week 12 capsule 0 No facility-administered encounter medications on file as of 02/25/2021. Physical Exam: Constitutional: Body mass index is 44.08 kg/m??. Vitals: 02/25/21 1610 BP: 120/66 Pulse: 71 Resp: 18 Temp: (!) 35.7 ??C (96.3 ??F) SpO2: 99% Weight: 109.3 kg (241 lb) Height: 157.5 cm (5' 2 ) Physical Exam 160/70left . . 140/65 right HEENT-right thyroid palpable with bruit right. Left Supraclav tenderness. 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 Relieved with pressign on tendon. Left underarm scar and fibrous tissue (from old liposuction). Left costochondral (lowest rib) tenderness Lungs-CTA CV-RRR. No murmur EXT-slight pretibial edema pitting Abd-epigastric tendenss>>RUQ and LUQ. Neg kidney punch. Results/Data: Old records were reviewed. Old records were not requested. CHEMISTRY 07/07/1390102/07/21 1027 Sodium 139 140 Potassium 3.8 4.2 Chloride 103 104 Carbon Dioxide 28 28 BUN 8 10 Glucose 96 110* Creatinine 0.8 0.7 Calcium 8.9 9.4 Albumin 3.9 4.3 Total Protein 7.2 7.0 Kidney Disease Stage > 90 >90 AST 14 21 ALT 9 16 Alkaline Phosphatase 86 142* Total Bilirubin 0.7 0.7 GFR 07/07/1390102/07/21 1027 Kidney Disease Stage > 90 >90 LIPIDS 02/07/21 1027 Cholesterol 213* LDL Cholesterol, Calc 138* HDL Cholesterol 57 Cholesterol/HDL Ratio 3.7 Triglycerides 89 HEMATOLOGY 07/07/1390102/07/21 1027 WBC 5.6 5.9 RBC 4.22 4.45 Hemoglobin 12.2 13.0 MCV 87.2 87.9 MCH 28.9 29.2 Plt Count 266 292 07/07/13901 Iron 83 TIBC 307 Transferrin % Sat 27 Ferritin 43.8 ESR 32* Vitamin B12 307 Endocrinology THYROID 07/07/1390102/07/21 1027 TSH 1.05 1.24 Free T3 -- 4.67 Free T4 -- 1.21 VitD/Calcium/Bone 07/07/1390102/07/21 1027 25-OH Vitamin D Total -- 17* Calcium 8.9 9.4 PCOS/ VITAMINS/MINERALS 10901 Vitamin B12 307 GI 07/07/1302 02/07/21 1027 AST 14 21 ALT 9 16 Alkaline Phosphatase 86 142* Amylase -- 38 Lipase -- 17 INFLAMATION 07/07/13901 ESR 32* Ferritin 43.8 DM 07/07/1390102/07/21 1027 Hemoglobin 12.2 13.0 Hct 36.8 39.1 Rheumatologic 07/07/13901 ESR 32* Ferritin 43.8 Transferrin % Sat 27 07/07/13901 CUCO Screen None Detected DATE OF SERVICE: 02/07/2021 US Carotids Duplex Bilateral REASON FOR STUDY: Carotid bruit. Vertebral artery flow is antegrade bilaterally. There is minimal plaque in both internal carotid arteries of less than 15% diameter stenoses. There is no significant increase in peak systolic velocity in either internal carotid artery. The peak systolic velocity on the right is 72 cm/s and on the left is 62 cm/s. IMPRESSION: No significant stenosis in either internal carotid artery. 02/07/21 US Thyroid IMPrESSION: 1. No sonographic abnormality of the thyroid. No thyromegaly. Exam Date: 02/07/21 EXAM DESCRIPTION: Chest 2 Views REASON FOR STUDY: yearly check up seasonal allergies w/cough, denies sob/htn/smoking, h/o exercise induced asthma TECHNIQUE: Frontal and lateral radiographic views of the chest acquired. FINDINGS: LUNGS/PLEURA: No focal consolidation, pneumothorax, or pleural effusion. Calcification projects over the right lung apex favored to relate to a calcified granuloma but only seen on the frontal view. HEART/MEDIASTINUM: Normal heart size. Normal hilar and mediastinal contours. HARDWARE/LINES/TUBES: None. BONES: No acute findings. IMPRESSION: No acute cardiopulmonary abnormality. 02/07/2021 2:59 PM EXAM DESCRIPTION: US Abdomen/Lmt Exam Spec Organ REASON FOR STUDY: Epigastric abdominal pain on physical exam 05/19/2021 IMPRESSION: 1. Hepatic steatosis. 2. Unremarkable sonographic evaluation of the gallbladder. No results found for: CBCAUTODIFF, CMP No results found for: CMP Assessment & Plan: Diagnoses and all orders for this visit: Bruit of right carotid artery (R09.89) (Primary) Assessment & Plan: Reduce risk factors. Check if DM. If so discussed criteria for RF control. Has Right apex calcification of LUNG-READDRESS HTN, goal below 140/90 (I10) Assessment & Plan: Has plaque in carotids minimal on US. Rest of workup normal. Recommend home bp. Today diastolic a little low (vasodilated w/ sligthly low temp of 35.7). Polyarthralgia (M25.50) - PTH; Future - Calcium, ionized; Future - Comprehensive metabolic panel; Future - Vitamin D 25 hydroxy; Future Vitamin D deficiency (17) (E55.9) Comments: vit D workup. isn't keen on sleep apnea workup. treat with high dose vit D adn recheck labs w/ video visit in a couple weeks and vit D in 3mo Orders: - PTH; Future - Calcium, ionized; Future - Vitamin D 25 hydroxy; Future - Endomysial antibody, quantitative; Future - Gliadin antibodies, total; Future - Tissue transglutaminase, IgG (TGG-IgG Ab); Future - Tissue transglutaminase IgA (TGG-IgA Ab); Future - H. pylori breath test; Future - Vitamin B12; Future - ergocalciferol (VITAMIN D) 50,000 unit capsule; Take 1 capsule (50,000 Units total) by mouth oncea week - Phosphorus; Future - Alkaline phosphatase, isoenzymes; Future Prediabetes (R73.03) Comments: hga1c 6.5, FBS 110. discussed in length prediabetes. advised monitor sugars and discuss at video visit. will discuss wt loss options in future (wants to discuss HLD ([id number]) (E78.5) Comments: discussed role of statins if diabetic. otherweise diet/exercise B12 deficiency (2012) (E53.8) Comments: check hpylori,has vit D def.check homocystein (carotid atherosclerosis) Orders: - H. pylori breath test; Future - Vitamin B12; Future Gastrointestinal disorder (K92.9)/Lymphadenopathy, supraclavicular left -suspect possible silent reflux? (cough,epigastric tender,high alkphos w/ nl GGT,vit D def, nl pancreatic enz,b12 def)grandpartent has colon cancer. Pending results will need referral to GI dank w/ fatty stool-check celiac (dank w/ vit D and B12 def) and H pylori - PTH; Future - Calcium, ionized; Future - Vitamin D 25 hydroxy; Future - Endomysial antibody, quantitative; Future - Gliadin antibodies, total; Future - Tissue transglutaminase, IgG (TGG-IgG Ab); Future - Tissue transglutaminase IgA (TGG-IgA Ab); Future - H. pylori breath test; Future - Vitamin B12; Future - Phosphorus; Future - Alkaline phosphatase, isoenzymes; Future alkphos elevation (nl GGT) (R74.8) Comments: check isoenzymes and phos levels. GGT and US GB were nl. more likely bone....but may need hida in future? Gut?(fatty stool) Hepatic steatosis (K76.0) Comments: w/ alkphos,vit D def,obesity, Atherosclerosis of both carotid arteries (I65.23) Assessment & Plan: Reduce risk factors. Check if DM. If so discussed criteria for RF control Morbid obesity with BMI of 40.0-44.9, adult (CMS/HCC) (E66.01, Z68.41) Comments: w/ prediabetes,HTN,HLD,carotid atherosclerosis. will rediscuss wt loss options Right apex Lung calcification-to readdress (J98.4)-noticed post visit-to discuss in view of all above..... w/ COUGH The differential considerations of a calcified lesion include calcified granuloma, hamartoma, carcinoid, osteosarcoma, chondrosarcoma and lung metastases or a primary bronchogenic carcinoma among others. alkphos elevation (nl GGT) (R74.8) Comments: check isoenzymes and phos levels. GGT and US GB were nl. more likely bone....or from potential diabetes.....but may need hida in future? Gut?(fatty stool) DDx of high alkphos: Hepatic causes Nonspecific, seen with all types of liver disease including: Hepatitis: viral, chronic, alcoholic Cirrhosis Infiltrative diseases of the liver Hypoperfusion states: sepsis, heart failure Nonhepatic causes? Influx of intestinal alkaline phosphatase after eating a fatty meal (individuals with blood type O or B) High bone turnover Growth/Healing fractures/Osteomalacia/Paget disease of bone/Osteogenic sarcoma, bone metastasis/Hyperparathyroidism Extrahepatic disease Myeloid metaplasia/Peritonitis/Diabetes mellitus Gastric ulcer (uncomplicated) Extrahepatic tumors-Osteosarcoma/lung Patient Instructions 1. Plaque on carotids ,15% B/L--(microvascular disease) 1. review blood sugars (see the sheet for checking blood sugar either intense check or over time-pre and 2hr post meal) 2.HTN- if diabetic bp <130/85 If not diabetic <140/90 3.cholesterol (ldl 138)- diet /exercise if diabetic statin 4. veronica (vit D) 5. Any aggressive inflamation (VERONICA,alkphos gallbladder, stools,hormone/PTH,arthritis) Check ferritin??? Calcification in lung apex? Cough ?Didn't discuss PTH,celiac, hpylori,alkphos frx PLAN 1. Get blood work. After which start vit D replacement. Once a week. See what symptoms respond. 3mo(vit D ) 2. 3mo to go over or video visit to go over blood to get a better quicker plan recom- sleep study. Once we have initial blood results GI referral for multiple reasons (hints of something going on with gut) My total encounter time on 02/25/2021 was 45 minutes which was spent in the activities documented in the note. This includes time spent prior to the visit and after the visit in direct care of the patient including reviewing labs,all pertaining outside records seeing the patient, ordering labs, and documenting in the records This time does not include time spent in any separately reportable services. Lillian Adam MD documented in this encounter Miscellaneous Notes * Result Encounter Note - Lillian Adam MD - 05/26/2021 4:49 PM CDT Inform pt I have reviewed all the results. There are some abnormalities that are not critical to their health, but I would like to discuss these in person at an office appointment soon. Please schedule f they dont already have one * Assessment & Plan Note - Lillian Adam MD - 02/25/2021 6:04 PM CDT Associated Problem(s): Low serum vitamin B12 (307 in 2013) (Deleted) Check B12 and homocystein (carotid atherosclerosis). No anemia. Check Hpylori (chronic cough) * Assessment & Plan Note - Lillian Adam MD - 02/25/2021 6:03 PM CDT Associated Problem(s): Carotid atherosclerosis (<15% b/l) Reduce risk factors. Check if DM. If so discussed criteria for RF control * Assessment & Plan Note - Lillian Adam MD - 02/25/2021 6:02 PM CDT Associated Problem(s): Cough improved * Assessment & Plan Note - Lillian Adam MD - 02/25/2021 5:59 PM CDT Associated Problem(s): HTN, goal below 140/90 Has plaque in carotids minimal on US. Rest of workup normal. Recommend home bp. Today diastolic a little low (vasodilated w/ sligthly low temp of 35.7). documented in this encounter Plan of Treatment Scheduled Orders Name Type Priority Associated Diagnoses Orde r Schedule Vitamin D 25 hydroxy Lab Routine Bruit of right carotid artery HTN, goal below 140/90 Polyarthralgia Vitamin D deficiency (17) Prediabetes HLD ([id number]) B12 deficiency (307 2012) Gastrointestinal disorder Expected: 05/28/2021, Expires: 08/27/2022 Endomysial antibody, quantitative Lab Routine Bruit of right carotid artery HTN, goal below 140/90 Polyarthralgia Vitamin D deficiency (17) Prediabetes HLD ([id number]) B12 deficiency (307 2012) Gastrointestinal disorder Expected: 02/25/2021, Expires: 02/25/2022 documented as of this encounter Procedures Procedure Name Priority Date/Time Associated Diagnosis Comments CALCIUM, IONIZED Routine 03/15/2021 11:4 0 AM CDT Bruit of right carotid artery HTN, goal below 140/90 Polyarthralgia Vitamin D deficiency (17) Prediabetes HLD (ufh182) B12 deficiency (307 2012) Gastrointestinal disorder ALKALINE PHOSPHATASE, ISOENZYMES Routine 03/15/2021 11:40 AM CDT Bruit of right carotid artery HTN, goal below 140/90 Polyarthralgia Vitamin D deficiency (17) Prediabetes HLD (crj620) B12 deficiency (307 2012) Gastrointestinal disorder GLIADIN ANTIBODIES, TOTAL Routine 03/15/2021 11:40 AM CDT Bruit of right carotid artery HTN, goal below 140/90 Polyarthralgia Vitamin D deficiency (17) Prediabetes HLD (lqm214) B12 deficiency (307 2012) Gastrointestinal disorder TISSUE TRANSGLUTAMINASE, IGA Routine 03/15/2021 11:40 AM CDT Bruit of right carotid artery HTN, goal below 140/90 Polyarthralgia Vitamin D deficiency (17) Prediabetes HLD (jtr698) B12 deficiency (307 2012) Gastrointestinal disorder TISSUE TRANSGLUTAMINASE, IGG Routine 03/15/2021 11:40 AM CDT Bruit of right carotid artery HTN, goal below 140/90 Polyarthralgia Vitamin D deficiency (17) Prediabetes HLD (tfg596) B12 deficiency (307 2012) Gastrointestinal disorder H. PYLORI BREATH TEST Routine 03/15/2021 11:40 AM CDT Bruit of right carotid artery HTN, goal below 140/90 Polyarthralgia Vitamin D deficiency (17) Prediabetes HLD (pcj635) B12 deficiency (307 2012) Gastrointestinal disorder VITAMIN D 25 HYDROXY Routine 03/15/2021 11:40 AM CDT PHOSPHORUS Routine 03/15/2021 11:40 AM CDT Bruit of right carotid artery HTN, goal below 140/90 Polyarthralgia Vitamin D deficiency (17) Prediabetes HLD (arn073) B12 deficiency (307 2012) Gastrointestinal disorder PTH Routine 03/15/2021 11:40 AM CDT Bruit of right carotid artery HTN, goal below 140/90 Polyarthralgia Vitamin D deficiency (17) Prediabetes HLD (ozl155) B12 deficiency (307 2013) Gastrointestinal disorder VITAMIN B12 Routine 03/15/2021 11:40 AM CDT Bruit of right carotid artery HTN, goal below 140/90 Polyarthralgia Vitamin D deficiency (17) Prediabetes HLD (lgj532) B12 deficiency (307 2012) Gastrointestinal disorder COMPREHENSIVE METABOLIC PANEL Routine 03/15/2021 11:40 AM CDT Bruit of right carotid artery HTN, goal below 140/90 Polyarthralgia Vitamin D deficiency (17) Prediabetes HLD (znl025) B12 deficiency (307 2012) Gastrointestinal disorder documented in this encounter Results * (ABNORMAL) Vitamin D 25 hydroxy (03/15/2021 11:40 AM CDT) Vitamin D 25-OH 13(L) 30 - 100 ng/mL [facility] Comment: Vitamin D Status ? 25-OH Vitamin D: Deficiency: ?<20 ng/mL Insufficiency: ? 20 - 29 ng/mL Optimal: ? > or = 30 ng/mL For 25-OH Vitamin D testing on patients on D2-supplementation and patients for whom quantitation of D2 and D3 fractions is required, the [facility]() 25-OH VIT D, (D2,D3), LC/MS/MS is recommended: order code 76645 (patients >2yrs). See Note 1 Note 1 For additional information, please refer to http://[email or web address]/faq/HNY449 (This link is being provided for informational/ educational purposes only.) 03/15/2021 11:4 0 AM CDT 03/15/2021 11:41 AM CDT Narrative [facility] - 03/21/2021 6:23 PM CDT FASTING:NO FASTING: NO us Lillian Adam MD LAB BLOOD ORDERABLES Final R esult Performing Organization Address City/[facility]/ZIP Co de Phone Number [facility] [address] [address] [phone] * (ABNORMAL) Alkaline phosphatase, isoenzymes (03/15/2021 11:40 AM CDT) Alk phos 117 37 - 153 U/L [facility], Intestinal isoenzymes 0(L) 1 - 24 % [facility], BONE ISOENZYMES 47 28 - 66 % [facility], Liver isoenzymes 53 25 - 69 % [facility], Comment: Increased intestinal alkaline phosphatase can be seen in blood group O and B secretors and after fatty meals. PLACENTAL ISOENZYMES 0 0 % [facility], Macrohepatic Isoenzymes CANCELED % [facility], Comment:Result canceled by t he ancillary. Interpretation CANCELED [facility], Comment:Result canceled by t he ancillary. Blood specimen (specimen) 03/15/2021 11:40 AM CDT 03/15/2021 11:41 AM CDT Narrative [facility] - 03/21/2021 6:23 PM CDT FASTING:NO FASTING: NO us Lillian Adam MD LAB BLOOD ORDERABLES Final R esult Performing Organization Address City/[facility]/ZIP Co de Phone Number [facility], [address] [place] [address] * Phosphorus (03/15/2021 11:40 AM CDT) Phosphorus, sr 3.5 2.5 - 4.5 mg/dL [facility] Blood specimen (specimen) 03/15/2021 11:40 AM CDT 03/15/2021 11:41 AM CDT Narrative [facility] - 03/21/2021 6:23 PM CDT FASTING:NO FASTING: NO us Lillian Adam MD LAB BLOOD ORDERABLES Final R esult Performing Organization Address City/[facility]/ZIP Co de Phone Number [facility] [address] [place] [address] * Vitamin B12 (03/15/2021 11:40 AM CDT) Pathologist [facility] Vitamin B12 354 200 - 1,100 pg/mL [facility] Comment: Please Note: Although the reference range for vitamin B12 is 200-1100 pg/mL, it has been reported that between 5 and 10% of patients with values between 200 and 400 pg/mL may experience neuropsychiatric and hematologic abnormalities due to occult B12 deficiency; less than 1% of patients with values above 400 pg/mL will have symptoms. Blood specimen (specimen) 03/15/2021 11:40 AM CDT 03/15/2021 11:41 AM CDT Narrative [facility] - 03/21/2021 6:23 PM CDT FASTING:NO FASTING: NO us Lillian Adam MD LAB BLOOD ORDERABLES Final R esult [facility] [address] [place] [address] * H. pylori breath test (03/15/2021 11:40 AM CDT) Pathologist [facility] H. pylori, breath test NOT DETECTED NOT DETECTED [facility] [place] Comment: Antimicrobials, proton pump inhibitors, and bismuth preparations are known to suppress H. pylori, and ingestion of these prior to H. pylori diagnostic testing may lead to false negative results. If clinically indicated, the test may be repeated on a new specimen obtained two weeks after discontinuing treatment. However, a positive result is still clinically valid. Breath 03/15/2021 11:4 0 AM CDT 03/15/2021 11:41 AM CDT Narrative [facility] - 03/21/2021 6:23 PM CDT FASTING:NO FASTING: NO Lillian Adam MD LAB BODY FLUIDS AND STOOLS O RDERABLES Final Result Performing Organization Address [facility]/[place] de Phone Number [facility] [address] [place] [address] * Tissue transglutaminase IgA (TGG-IgA Ab) (03/15/2021 11:40 AM CDT) Tissue transglutaminase ab, IgA 1 <4 U/mL [facility] Comment: ?Value ??Interpretation ?<4 U/mL: No Antibody Detected ? >or=4 U/mL: Antibody Detected Blood specimen (specimen) 03/15/2021 11:40 AM CDT 03/15/2021 11:41 AM CDT Narrative [facility] - 03/21/2021 6:23 PM CDT FASTING:NO FASTING: NO Lillian Adam MD LAB BLOOD ORDERABLES Final R esult Performing Organization Address [facility]/[place] de Phone Number [facility] [facility] [address] [facility] [place] [address] * Tissue transglutaminase, IgG (TGG-IgG Ab) (03/15/2021 11:40 AM CDT) Tissue transglutaminase ab, IgG 1 <6 U/mL [facility] Comment: ? Value ?? Interpretation ?<6 U/mL: No Antibody Detected ? >or=6 U/mL: Antibody Detected Blood specimen (specimen) 03/15/2021 11:40 AM CDT 03/15/2021 11:41 AM CDT Narrative [facility] - 03/21/2021 6:23 PM CDT FASTING:NO FASTING: NO Lillian Adam MD LAB BLOOD ORDERABLES Final R esult [facility] [address] [facility] [place] [address] * Gliadin antibodies, total (03/15/2021 11:40 AM CDT) Pathologist [facility] Gliadin (deamidated) ab, IgA 2 <20 U [facility], Comment: Reference Ranges for Gliadin (Deamidated) Antibody (IgA): ?<20 units ?Antibody Not Detected ??> or = 20 units ?Antibody Detected Gliadin (deamidated) Ab IgG 2 <20 U [facility], Comment: Reference Ranges for Gliadin (Deamidated) Antibody (IgG): ?<20 units ?Antibody Not Detected ??> or = 20 units ?Antibody Detected Blood specimen (specimen) 03/15/2021 11:40 AM CDT 03/15/2021 11:41 AM CDT Narrative [facility] - 03/21/2021 6:23 PM CDT FASTING:NO FASTING: NO us Lillian Adam MD LAB BLOOD ORDERABLES Final R esult GRICELDA [facility] [place] [address] [place] [address] * Comprehensive metabolic panel (03/15/2021 11:40 AM CDT) [facility] Glucose 99 65 - 139 mg/dL [facility] Comment: ? Non-fasting reference interval BUN 11 7 - 25 mg/dL [facility] Creatinine 0.86 0.50 - 1.05 mg/dL [facility] Comment: For patients >49 years of age, the reference limit for Creatinine is approximately 13% higher for people identified as -[place]. eGFR NON-AFR. KOSOVAN 77 > OR = 60 mL/min/1 .73m2 [facility] EGFR 89 > OR = 60 mL/min/1 .73m2 [facility] BUN/creat ratio NOT APPLICABLE 6 - 22 (calc) [facility] Sodium 141 135 - 146 mmol/L [facility] Potassium, pl 4.2 3.5 - 5.3 mmol/L [facility] Chloride 104 98 - 110 mmol/L [facility] CO2 30 20 - 32 mmol/L [facility] Calcium 9.4 8.6 - 10.4 mg/dL [facility] Protein, sr 6.4 6.1 - 8.1 g/dL [facility] Albumin 4.0 3.6 - 5.1 g/dL [facility] GLOBULIN 2.4 1.9 - 3.7 g/dL (calc) [facility] Alb/glob ratio 1.7 1.0 - 2.5 (calc) [facility] Bilirubin, total 0.5 0.2 - 1.2 mg/dL [facility] Alk phos 119 37 - 153 U/L [facility] AST 22 10 - 35 U/L [facility] ALT (SGPT) 18 6 - 29 U/L [facility] Blood specimen (specimen) 03/15/2021 11:40 AM CDT 03/15/2021 11:41 AM CDT Narrative [facility] - 03/21/2021 6:23 PM CDT FASTING:NO FASTING: NO Lillian Adam MD LAB BLOOD ORDERABLES Final R esult Performing Organization Address [facility] de Phone Number [facility] [address] [place] [address] * Calcium, ionized (03/15/2021 11:40 AM CDT) Pathologist [facility] Calcium, Ionized 5.3 4.8 - 5.6 mg/dL [facility] Blood specimen (specimen) 03/15/2021 11:40 AM CDT 03/15/2021 11:41 AM CDT Narrative [facility] - 03/21/2021 6:23 PM CDT FASTING:NO FASTING: NO Lillian Adam MD LAB BLOOD ORDERABLES Final R ult Performing Organization Address [facility] de Phone Number [facility] [address] [place] [address] * PTH (03/15/2021 11:40 AM CDT) Pathologist [facility] Parathyroid hormone, intact 51 14 - 64 pg/mL [facility] Comment: Interpretive Guide ?Intact PTH ? Calcium ? ------- Normal Parathyroid ?Normal ? Normal Hypoparathyroidism ?Low or Low Normal ?Low Hyperparathyroidism ?? Primary ?Normal or High ? High ?? Secondary ?High ? Normal or Low ?? Tertiary ? High ? High Non-Parathyroid ?? Hypercalcemia ?Low or Low Normal ?High Blood specimen (specimen) 03/15/2021 11:40 AM CDT 03/15/2021 11:41 AM CDT Narrative [facility] - 03/21/2021 6:23 PM CDT FASTING:NO FASTING: NO us Lillian Adam MD LAB BLOOD ORDERABLES Final R esult [facility] [address] [place] [address] documented in this encounter Visit Diagnoses Diagnosis Bruit of right carotid artery- Primary HTN, goal below 140/90 Polyarthralgia Pain in joint, multiple sites Vitamin D deficiency (17) Prediabetes Other abnormal glucose HLD ([id number]) B12 deficiency (307 2012) Gastrointestinal disorder Unspecified disorder of intestine Atherosclerosis of both carotid arteries Morbid obesity with BMI of 40.0-44.9, adult (HCC) Hepatic steatosis Other chronic nonalcoholic liver disease Right apex Lung calcification-to readdress Other diseases of lung, not elsewhere classified alkphos elevation (nl GGT) Other nonspecific abnormal serum enzyme levels documented in this encounter Care Teams [employer] Forms Relationship Specialty Start Date End Date Lillian Adam MD [facility] [address] PCP - General Internal Medicine 12/25/20 Tommy Brownlee MD [address] [facility] [address] [facility] [address] [place] [address] Referring Physician Obstetrics and Gynecology 01/20/21 documented as of this encounter
--- OUTSIDE RECORDS SUMMARY | 2024-09-19 04:38 | XMS_ITS | Encounter Summary ---
Author Organization [facility] Healthcare Address [address] [place] [address] Care Team Providers Care Site Manager Name Role Phone Lillian Adam MD Primary Care Provider + [phone] Tommy Brownlee MD Unavailable [phone] Encounter Details Date Type Department Care Team (Late st Contact Info) Description 02/07/2021 8:08 AM CDT Hospital Encounter [facility] OP INTERIM Lillian Adam MD [facility] [address] Social History Tobacco Use Types Packs/Day [...] on file Legal Sex Female 8:38 PM [employer] Gender Identity Not on file Sexual Orientation Not on file documented as of this encounter Plan of Treatment Not on file documented as of this encounter Procedures Procedure Name Priority Date/Time Associated Diagnosis Comments TSH+FREE T4 Routine 02/07/2021 10:27 AM CDT CBC WITH AUTO DIFFERENTIAL Routine 02/07/2021 10:27 AM CDT VITAMIN D 25 HYDROXY Routine 02/07/2021 10:27 AM CDT T3, FREE Routine 02/07/2021 10:27 AM CDT LIPASE Routine 02/07/2021 10:27 AM CDT HEMOGLOBIN A1C Routine 02/07/2021 10:27 AM CDT GAMMA GT Routine 02/07/2021 10:27 AM CDT AMYLASE Routine 02/07/2021 10:27 AM CDT LIPID PANEL Routine 02/07/2021 10:27 AM CDT COMPREHENSIVE METABOLIC PANEL Routine 02/07/2021 10:27 AM CDT URINALYSIS, COMPLETE W/REFLEX TO CULTURE Routine 02/07/2021 10:24 AM CDT ALBUMIN, RANDOM URINE WITHOUT CREATININE Routine 02/07/2021 10:24 AM CDT XR CHEST PA LATERAL 2 VIEWS 02/07/2021 9:34 AM CDT US THYROID 02/07/2021 9:30 AM CDT US CAROTIDS DUPLEX BILATERAL 02/07/2021 8:54 AM CDT US ABDOMEN LIMITED 02/07/2021 8: 10 AM CDT documented in this encounter Results * T3, free (02/07/2021 10:27 AM CDT) Free T3 4.67 3.10 - 6.80 pmol/L [facility] 02/07/2021 10:2 7 AM CDT 02/07/2021 10:36 AM CDT Narrative Resulting Agency Comment CLI us Lillian Adam MD LAB BLOOD ORDERABLES Final R esult [address] [phone] * TSH+Free T4 (02/07/2021 10:27 AM CDT) TSH 1.24 0.27 - 4.20 uIU/mL [facility] Free T4 1.21 0.93 - 1.70 ng/dL [facility] 02/07/2021 10:2 7 AM CDT 02/07/2021 10:36 AM CDT Narrative Resulting Agency Comment CLI us Lillian Adam MD LAB BLOOD ORDERABLES Final R esult [address] [phone] * (ABNORMAL) Vitamin D 25 hydroxy (02/07/2021 10:27 AM CDT) 25-OH Vitamin D Total 17(L) 30 - 80 ng/mL [facility] 02/07/2021 10:2 7 AM CDT 02/07/2021 10:36 AM CDT Narrative Resulting Agency Comment CLI us Lillian Adam MD LAB BLOOD ORDERABLES Final R esult [address] [phone] * (ABNORMAL) Hemoglobin A1c (02/07/2021 10:27 AM CDT) Hemoglobin A1c % 6.5(H) 4.0 - 5.6 % [facility] Comment: ADA 2016 GUIDELINES: ??Initial Diagnostic Criteria ? HbA1c Result: ?Interpretation: ?<5.7% ? Normal ?5.7-6.4% ?At risk for diabetes mellitus ?>=6.5% ?Consistent with diabetes mellitus ??Diabetes monitoring ? Target value (ADA Recommended) ?? <7% 02/07/2021 10:2 7 AM CDT 02/07/2021 10:36 AM CDT Narrative Resulting Agency Comment CLI us Lillian Adam MD LAB BLOOD ORDERABLES Final R esult Performing Organization Address City/[facility]/ZIP Co de Phone Number [address] [phone] * Gamma GT (02/07/2021 10:27 AM CDT) Pathologist [facility] GGT 17 5 - 36 U/L [facility] 02/07/2021 10:2 7 AM CDT 02/07/2021 10:36 AM CDT Narrative Resulting Agency Comment CLI us Lillian Adam MD LAB BLOOD ORDERABLES Final R esult Performing Organization Address [facility] [place] [address], [facility] [phone] * Lipase (02/07/2021 10:27 AM CDT) Pathologist [facility] Lipase 17 13 - 60 U/L [facility] 02/07/2021 10:2 7 AM CDT 02/07/2021 10:36 AM CDT Narrative Resulting Agency Comment CLI us Lillian Adam MD LAB BLOOD ORDERABLES Final R esult Performing Organization Address City/[facility]/ZIP Co de Phone Number [address] [phone] * Amylase (02/07/2021 10:27 AM CDT) Amylase 38 28 - 100 U/L [facility] 02/07/2021 10:2 7 AM CDT 02/07/2021 10:36 AM CDT Narrative Resulting Agency Comment CLI us Lillian Adam MD LAB BLOOD ORDERABLES Final R [facility] Performing Organization Address [facility] de Phone Number [address] [phone] * (ABNORMAL) Lipid panel (02/07/2021 10:27 AM CDT) Triglycerides 89 0 - 149 mg/dL [facility] Comment: National Lipid Association/NCEP Guidelines: ?? Normal ?< 150 mg/dL ?? Borderline high ?? 150-199 mg/dL ?? High ?200-499 mg/dL ?? Very High ? >=500 mg/dL Cholesterol 213(H) 0 - 199 mg/dL [facility] Comment: National Lipid Association/NCEP Guidelines: Desirable ? < 200 mg/dL Borderline high: ??200-239 mg/dL High Risk: ?>=240 mg/dL HDL Cholesterol 57 mg/dL [facility] Comment: Reference Ranges: ? Males: >=40 mg/dL ? Females: >=50 mg/dL LDL Cholesterol, Calc 138(H) 0 - 129 mg/dL [facility] Comment: National Lipid Association/NCEP Guidelines: ??Optimal ? < 100 mg/dL ??Near Optimal ?100-129 mg/dL ??Borderline high 130-159 mg/dL ??High ?>=160 mg/dL Cholesterol/HDL Ratio 3.7 [facility] Comment: Optimal ??< 3.5:1 High ? > 5:1 02/07/2021 10:2 7 AM CDT 02/07/2021 10:36 AM CDT Narrative Resulting Agency Comment CLI us Lillian Adam MD LAB BLOOD ORDERABLES Final R esult [facility] [address] [place] [address], [facility] [phone] * (ABNORMAL) Comprehensive metabolic panel (02/07/2021 10:27 AM CDT) Sodium 140 135 - 145 mmol/L [facility] Potassium 4.2 3.3 - 5.1 mmol/L [facility] Chloride 104 96 - 108 mmol/L [facility] Carbon Dioxide 28 22 - 32 mmol/L [facility] Anion Gap 8 7 - 16 [facility] Glucose 110(H) 70 - 100 mg/dL [facility] BUN 10 8 - 25 mg/dL [facility] Creatinine 0.7 0.5 - 1.1 mg/dL [facility] Comment: NOTE: Estimated GFR (Cockroft-Gault) will NOT be calculated unless patient Height and Weight were entered. Also, Kidney Disease Stage (GFR) and Estimated GFR (Cockroft-Gault) will NOT be calculated if Creatinine result is <0.2. Kidney Disease Stage >90 mL/MIN [facility] Comment: NOTE; ??The GFR is an estimated value using the creatinine, sex, age, and race of the patient. THE Estimated Kidney Disease GFR is validated for AGES 18-70 YEARS STAGE ?mL/Min ?DESCRIPTION ??1 ?90 mL/min or more ?Normal or elevated GFR ??2 ? 60-89 mL/min ?Mildly decreased GFR ??3 ? 30-59 mL/min ?Moderately decreased GFR ??4 ? 15-29 mL/min ?Severely decreased GFR ??5 ? <15 mL/min ? Kidney failure or on dialysis Calcium 9.4 8.6 - 10.3 mg/dL [facility] Total Protein 7.0 6.4 - 8.3 g/dL [facility] Albumin 4.3 3.5 - 5.0 g/dL [facility] Globulin 2.7 2.3 - 3.5 gm/dL [facility] Albumin/Globulin Ratio 1.6 1.1 - 1.8 [facility] Total Bilirubin 0.7 0.0 - 1.2 mg/dL [facility] AST 21 0 - 32 U/L [facility] ALT 16 0 - 33 U/L [facility] Alkaline Phosphatase 142(H) 35 - 104 U/L [facility] 02/07/2021 10:2 7 AM CDT 02/07/2021 10:36 AM CDT Narrative Resulting Agency Comment CLI us Lillian Adam MD LAB BLOOD ORDERABLES Final R esult [facility] [address] [place] [address], [facility] [phone] * CBC with auto differential (02/07/2021 10:27 AM CDT) WBC 5.9 3.8 - 9.9 X10 3/ul [facility] RBC 4.45 3.90 - 5.20 x10 6/ul [facility] Hemoglobin 13.0 11.9 - 15.5 g/dL [facility] Hct 39.1 35.6 - 45.5 % [facility] MCV 87.9 81.3 - 96.4 fl [facility] MCH 29.2 27.1 - 33.3 pg [facility] MCHC 33.2 32.3 - 35.7 g/dl [facility] RDW 13.1 11.1 - 14.9 % [facility] Plt Count 292 150 - 400 x10 3/ul [facility] MPV 10.4 9.1 - 12.3 fl [facility] Neut % 57.6 % [facility] Immature Gran % 0.3 % [facility] Lymph % 33.5 % [facility] Stonewall % 6.8 % [facility] Eos % 1.5 % [facility] AUTO BASO % 0.3 % [facility] NEUTROPHIL ABS # 3.4 1.7 - 6.5 x10 3/ul [facility] Immature Gran # 0.0 0.0 - 0.1 x10 3/ul [facility] Absolute Lymphs (auto) 2.0 0.8 - 3.3 x10 3/ul [facility] Absolute Monos (auto) 0.4 0.2 - 0.8 x10 3/ul [facility] Absolute Eos (auto) 0.1 0.0 - 0.5 x10 3/ul [facility] BASOPHIL ABS # 0.0 0.0 - 0.1 x10 3/ul [facility] Nucleat RBC Rel Count 0.0 #/100WBC [facility] NRBC abs 0.00 0.00 - 0.01 x10 3/ul [facility] Absolute Neutrophils 3,400 200 - 8,000 /ul [facility] 02/07/2021 10:2 7 AM CDT 02/07/2021 10:36 AM CDT Narrative Resulting Agency Comment CLI us Lillian Adam MD LAB BLOOD ORDERABLES Final R esult Performing Organization Address City/[facility]/ZIP Co de Phone Number [address] [phone] * Microalbumin, urine, random (02/07/2021 10:24 AM CDT) Ur Random Creatinine 160.0 mg/dL [facility] Comment: Random Urine: No established Reference Interval exists Reference Range First morning urine: Females 28 - 217 mg/dL U Random Total Protein 8 mg/dL [facility] Comment: Random Urine: No established Reference Interval exists Ur Random Microalbumin <12.0 0.0 - 19.9 mg/L [facility] Comment: Microalbumin is <12. Microalb/creat will not be calculated [place] [employer] Guidelines Microalbuminuria: 30-300 ug albumin /mg creatinine Clinical Albuminuria: >300 ug albumin /mg creatinine 02/07/2021 10:2 4 AM CDT 02/07/2021 10:39 AM CDT Narrative Resulting Agency Comment CLI us Lillian Adam MD LAB URINE ORDERABLES Final R esult Performing Organization Address City/[facility] Co de Phone Number [address] [phone] * URINALYSIS, COMPLETE W/REFLEX TO CULTURE (02/07/2021 10:24 AM CDT) Ur Collection Type CLEAN CATCH [facility] Ur Culture Indicated? C S NOT INDICATED [facility] Urine Color YELLOW YELLOW [facility] Urine Clarity [facility] Urine Glucose (UA) NORMAL NORMAL mg/dL [facility] Urine Bilirubin NEGATIVE NEGATIVE mg/dl [facility] Urine Ketones NEGATIVE NEGATIVE mg/dL [facility] Ur Specific [place] 1.020 1.005 - 1.025 [facility] Urine Blood NEGATIVE NEGATIVE mg/dl [facility] Urine pH 6.0 5.0 - 8.0 [facility] Urine Protein NEGATIVE NEGATIVE mg/dL [facility] Urine Urobilinogen NORMAL NORMAL mg/dL [facility] Urine Nitrite NEGATIVE NEGATIVE [facility] Ur Leukocyte Esterase NEGATIVE NEGATIVE Polo/ul [facility] Ur Microscopic Review Indicated or Ordered [facility] Urine RBC 0-2 0 - 2 /HPF [facility] Urine WBC 0-5 0 - 2 /HPF [facility] Urine Mucus Present /LPF [facility] Ur Squamous Epith Cells 1-5 /HPF [facility] 02/07/2021 10:2 4 AM CDT 02/07/2021 10:39 AM CDT Narrative [facility] - 02/07/2021 10:51 AM CDT PT Clean catch Resulting Agency Comment CLI us Lillian Adam MD LAB URINE ORDERABLES Final R esult [facility] [address] [place] [address], [facility] [phone] * XR Chest Pa Lateral 2 Views (02/07/2021 9:34 AM CDT) Anatomical Region Laterality Modality Body, Chest N/A Radiographic Donna ging 02/07/2021 2:58 PM CDT Narrative 02/07/2021 2:59 PM CDT Patient Name: JASMYNE MANZANO ?Ordering Dr: Lillian Adam MD ?? D.O.B: 1965 ? Exam Date: // ?? 0934 ?? Age: 55 ?Sex: Female ? MR#: [id number] ?? Loc: ? RADIOLOGY REPORT ?? Order #[id number] ?? Radiology ? Chest 2 Views ? Signed ?? EXAM DESCRIPTION: ?? Chest 2 Views ? REASON FOR STUDY: ?? yearly check up seasonal allergies w/cough, denies ?? sob/htn/smoking, h/o exercise induced asthma ? TECHNIQUE: ?? Frontal and lateral radiographic views of the chest acquired. ? COMPARISON: ?? None ? FINDINGS: ?LUNGS/PLEURA: No focal consolidation, pneumothorax, or pleural effusion. ? Calcification projects over the right lung apex favored to relate to a ?? calcified granuloma but only seen on the frontal view. ? HEART/MEDIASTINUM: Normal heart size. Normal hilar and mediastinal contours. ? HARDWARE/LINES/TUBES: None. ? BONES: No acute findings. ? IMPRESSION: ??No acute cardiopulmonary abnormality. ? THIS IS AN ELECTRONICALLY VERIFIED FINAL REPORT ?? 02/07/2021 2:59 PM - Electronically signed by Jonatan Hickey M.D. ?? Jonatan Hickey M.D. ? NITIN ?? D: ??02/07/2021 2:59 PM ?? T: ? Report ID: [id number] ?? Reading Location: ??[id number] ? REPORT ELECTRONICALLY SIGNED IN OTHER VENDOR SYSTEM ?? Resulting Agency Comment O Procedure Note Jonatan Hickey MD - 02/07/2021 Patient Name: ALAINARin Dr: Lillian Adam MDORamanB: 1965 Exam Date: 02/07/2134 Age: 55 Sex: Female MR#: [id number] Loc: RADIOLOGY REPORT Order #[id number] Radiology Chest 2 Views Signed EXAM DESCRIPTION: Chest 2 Views REASON FOR STUDY: yearly check up seasonal allergies w/cough, denies sob/htn/smoking, h/o exercise induced asthma TECHNIQUE: Frontal and lateral radiographic views of the chestacquired. COMPARISON: None FINDINGS: LUNGS/PLEURA: No focal consolidation, pneumothorax, or pleural effusion. Calcification projects over the right lung apex favored to relate to a calcified granuloma but only seen on the frontal view. HEART/MEDIASTINUM: Normal heart size. Normal hilar and mediastinalcontours. HARDWARE/LINES/TUBES: None. BONES: No acute findings. IMPRESSION: No acute cardiopulmonary abnormality. THIS IS AN ELECTRONICALLY VERIFIED FINAL REPORT 02/07/2021 2:59 PM - Electronically signed by Jonatan Hickey M.D. NITIN T: Report ID: [id number] Reading Location: [id number] REPORT ELECTRONICALLY SIGNED IN OTHER VENDOR SYSTEM us Lillian Adam MD IMG XR PROCEDURES Final Resu lt * US Thyroid (02/07/2021 9:30 AM CDT) Anatomical Region Laterality Modality Head and Neck N/A Ultrasound 02/07/2021 3:26 PM CDT Narrative 02/07/2021 3:27 PM CDT Patient Name: JASMYNE MANZANO ?Ordering Dr: Lillian Adam MD ?? D.O.B: 1965 ? Exam Date: 02/07/21 ?? 929 ?? Age: 55 ?Sex: Female ? MR#: [id number] ?? Loc: ? RADIOLOGY REPORT ?? Order #[id number] ?? Ultrasound ? US Thyroid ? Signed ?? EXAM DESCRIPTION: ?? US Thyroid ? REASON FOR STUDY: ?? Thyromegaly from physician visit 01/20/2021 ? TECHNIQUE: ??Ultrasound of the thyroid was performed with grayscale and color ?? doppler. ? COMPARISON: ?? None available ? FINDINGS: ? RIGHT: The right thyroid lobe measures ??4.2 x 2 x 1.8 cm. ??The right thyroid ?? lobe is normal in echotexture. ? LEFT: The left thyroid lobe measures ??3.9 x 1.6 x 1.6 cm. ??The left thyroid ?? lobe is normal in echotexture. ? ISTHMUS: The isthmus measures ??0.4 cm in AP dimension. ??The isthmus is normal ?? in echotexture. ? VASCULARITY: ??Normal. ? OTHER: ??No other significant finding. ? IMPRESSION: ? 1. ??No sonographic abnormality of the thyroid. ??No thyromegaly. ? THIS IS AN ELECTRONICALLY VERIFIED FINAL REPORT ?? 02/07/2021 3:27 PM - Electronically signed by Gerardo Soler M.D. ?? Gerardo Soler M.D. ? LB ?? D: ??02/07/2021 3:27 PM ?? T: ? Report ID: [id number] ?? Reading Location: ??[id number] ? REPORT ELECTRONICALLY SIGNED IN OTHER VENDOR SYSTEM ?? Resulting Agency Comment O Procedure Note Gerardo Soler MD - 02/07/2021 Patient Name: Rin MANZANO Dr: Lillian Adam MDO.B: 1965 Exam Date: 02/07/21929 Age: 55 Sex: Female MR#: [id number] Loc: RADIOLOGY REPORT Order #[id number] Ultrasound US Thyroid Signed EXAM DESCRIPTION: US Thyroid REASON FOR STUDY: Thyromegaly from physician visit 01/20/2021 TECHNIQUE: Ultrasound of the thyroid was performed with grayscale andcolor doppler. COMPARISON: None available FINDINGS: RIGHT: The right thyroid lobe measures 4.2 x 2 x 1.8 cm. The rightthyroid lobe is normal in echotexture. LEFT: The left thyroid lobe measures 3.9 x 1.6 x 1.6 cm. The leftthyroid lobe is normal in echotexture. ISTHMUS: The isthmus measures 0.4 cm in AP dimension. The isthmus isnormal in echotexture. VASCULARITY: Normal. OTHER: No other significant finding. IMPRESSION: 1. No sonographic abnormality of the thyroid. No thyromegaly. THIS IS AN ELECTRONICALLY VERIFIED FINAL REPORT 02/07/2021 3:27 PM - Electronically signed by Gerardo WHALEY T: Report ID: [id number] Reading Location: [place] [id number] REPORT ELECTRONICALLY SIGNED IN OTHER VENDOR SYSTEM us Lillian Adam MD IMG US PROCEDURES Final Resu lt * US Carotids Duplex Bilateral (02/07/2021 8:54 AM CDT) Anatomical Region Laterality Modality Vascular Bilateral Ultrasound 02/07/2021 4:18 PM CDT Narrative 02/07/2021 5:38 PM CDT ? Patient Name: JASMYNE MANZANO ? MR#: [id number] ? Status: REG CLI ? D.O.B: 1965 Age: ??55 ?Sex: Female ? ADM/SER Dt: 02/07/21 ?Disch Dt: ? LOC: H.LAB ? Ordering Phy: Lillian Adam MD ? Order #[id number] ? Carotid Ultrasound Bilateral ?? Noe Newman MD ? Signed ?? DATE OF SERVICE: ?? 02/07/2021 ? REASON FOR STUDY: ??Carotid bruit. ? Vertebral artery flow is antegrade bilaterally. ??There is minimal plaque in both internal carotid arteries of less than 15% diameter stenoses. ??There is no significant increase in peak systolic velocity in either internal carotid artery. ??The peak systolic velocity on the right is 72 cm/s and on the left is 62 cm/s. ? IMPRESSION: ??No significant stenosis in either internal carotid artery. ? NTS ? Job: [id number] ? Dictated By: Noe Newman MD ?? Dictated For: Noe Newman MD ? <Electronically signed by Noe Newman MD> ? 02/07/21 1728 ?? Resulting Agency Comment O Procedure Note Noe Newman MD - 02/07/2021 Patient Name: JASMYNE MANZANO #: [id number] Status: REG CLI D.O.B: 1965 Age: 55Sex: Female ADM/SER Dt: 02/07/21 [facility] Phy: Lillian Adam MD Order #[id number] Carotid Ultrasound Bilateral Noe Newman MD Signed DATE OF SERVICE: 02/07/2021 REASON FOR STUDY: Carotid bruit. Vertebral artery flow is antegrade bilaterally. There is minimal plaquein both internal carotid arteries of less than 15% diameter stenoses. There is no significantincrease in peak systolic velocity in either internal carotid artery. The peak systolic velocity onthe right is 72 cm/s and on the left is 62 cm/s. IMPRESSION: No significant stenosis in either internal carotid artery. NTS Job: [id number] Dictated By: Noe Newman MD Dictated For: Noe Newman MD <Electronically signed by Noe Newman MD> 02/07/21 1728 us Lillian Adam MD IMG US PROCEDURES Final Resu lt * US Abdomen Limited (02/07/2021 8:10 AM CDT) Anatomical Region Laterality Modality Abdomen N/A Ultrasound 02/07/2021 2:53 PM CDT Narrative 02/07/2021 2:58 PM CDT Patient Name: JASMYNE MANZANO ?Ordering Dr: Lillian Adam MD ?? D.O.B: 1965 ? Exam Date: 02/07/21 ?? 0810 ?? Age: 55 ?Sex: Female ? MR#: [id number] ?? Loc: ? RADIOLOGY REPORT ?? Order #[id number] ?? Ultrasound ? US Abdomen/Lmt Exam Spec Organ ? Signed ?? EXAM DESCRIPTION: ?? US Abdomen/Lmt Exam Spec Organ ? REASON FOR STUDY: ?? Epigastric abdominal pain on physical exam 05/19/2021 ? TECHNIQUE: ??Ultrasound of the right upper quadrant of the abdomen was ?? performed with grayscale and color doppler. ? COMPARISON: ?? None ? FINDINGS: ?LIVER: The liver is echogenic consistent with fatty infiltration. ??No focal ?? liver lesions identified the main portal vein is patent with a normal ?? direction of flow. ? GALLBLADDER: The gallbladder is normal in appearance. ??There is no evidence of ?? cholelithiasis, gallbladder wall thickening, or focal pericholecystic fluid. ? BILIARY: There is no intrahepatic or extrahepatic biliary ductal dilation. The ?? common bile duct measures 3 mm in diameter. ? RIGHT KIDNEY: The right kidney measures 8.6 cm in length. Right renal cortical ?? thickness and echogenicity are normal. ??There is no right hydronephrosis. ? PANCREAS: The pancreas is unremarkable on limited evaluation. ??Portions of the ?? pancreas are obscured by bowel gas. ? IMPRESSION: ? 1. ??Hepatic steatosis. ? 2. ??Unremarkable sonographic evaluation of the gallbladder. ? THIS IS AN ELECTRONICALLY VERIFIED FINAL REPORT ?? 02/07/2021 2:58 PM - Electronically signed by Jonatan Hickey M.D. ?? Jonatan Hickey M.D. ? NITIN ?? D: ??02/07/2021 2:58 PM ?? T: ? Report ID: [id number] ?? Reading Location: ??[id number] ? REPORT ELECTRONICALLY SIGNED IN OTHER VENDOR SYSTEM ?? Resulting Agency Comment O Procedure Note Jonatan Hickey MD - 02/07/2021 Patient Name: Rin MANZANO Dr: Lillian Adam MD D.O.B: 1965 Exam Date: 02/07/21809 Age: 55 Sex: Female MR#: [id number] Loc: RADIOLOGY REPORT Order #[id number] Ultrasound US Abdomen/Lmt Exam Spec Organ Signed EXAM DESCRIPTION: US Abdomen/Lmt Exam Spec Organ REASON FOR STUDY: Epigastric abdominal pain on physical exam 05/19/2021 TECHNIQUE: Ultrasound of the right upper quadrant of the abdomen was performed with grayscale and color doppler. COMPARISON: None FINDINGS: LIVER: The liver is echogenic consistent with fatty infiltration. Nofocal liver lesions identified the main portal vein is patent with a normal direction of flow. GALLBLADDER: The gallbladder is normal in appearance. There is noevidence of cholelithiasis, gallbladder wall thickening, or focal pericholecysticfluid. BILIARY: There is no intrahepatic or extrahepatic biliary ductaldilation. The common bile duct measures 3 mm in diameter. RIGHT KIDNEY: The right kidney measures 8.6 cm in length. Right renalcortical thickness and echogenicity are normal. There is no right hydronephrosis. PANCREAS: The pancreas is unremarkable on limited evaluation. Portionsof the pancreas are obscured by bowel gas. IMPRESSION: 1. Hepatic steatosis. 2. Unremarkable sonographic evaluation of the gallbladder. THIS IS AN ELECTRONICALLY VERIFIED FINAL REPORT 02/07/2021 2:58 PM - Electronically signed by Jonatan Hickey M.D. NITIN T: Report ID: [id number] Reading Location: [place] [address] REPORT ELECTRONICALLY SIGNED IN OTHER VENDOR SYSTEM us Lillian Adam MD IMG US PROCEDURES Final Resu lt documented in this encounter Visit Diagnoses Not on filedocumented in this encounter Care Teams Site Manager Relationship Specialty Start Date End Date Lillian Adam MD [address] [place] [id number] PCP - General Internal Medicine 12/25/20 Tommy Brownlee MD [address] [facility] [address] [place] [address] Referring Physician Obstetrics and Gynecology 01/20/21 documented as of this encounter
--- OUTSIDE RECORDS SUMMARY | 2024-09-19 04:38 | XMS_ITS | Encounter Summary ---
Author Organization [facility] Healthcare Address [address] [place] [address] Care Team Providers Care Bench Shear Operator Name Role Phone Unavailable Primary Care Provider Unavailabl e Encounter Details Date Type Department Care Team (Latest Contact Info) Description 07/07/2013 8:43 AM CDT Hospital Encounter [facility] Yu Ocampo MD [address] 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 Gender Identity Not on file Sexual Orientation Not on file documented as of this encounter Plan of Treatment Not on file documented as of this encounter Procedures Procedure Name Priority Date/Time Associated Diagnosis Comments IRON PROFILE W/ IBC Routine 07/07/2013 9 :02 AM CDT ALLERGEN LATEX (MISC) IGE Routine 07/07/2013 9:02 AM CDT CBC WITH AUTO DIFFERENTIAL Routine 07/07/2013 9:02 AM CDT CUCO REFLEX TO QUANTITATIVE Routine 07/07/2013 9:02 AM CDT ERYTHROCYTE SEDIMENTATION RATE Routine 07/07/2013 9:02 AM CDT TSH Routine 07/07/2013 9:02 AM CDT HEMOGLOBIN A1C Routine 07/07/2013 9:02 AM CDT FERRITIN Routine 07/07/2013 9:02 AM CDT VITAMIN B12 Routine 07/07/2013 9:02 AM CDT COMPREHENSIVE METABOLIC PANEL Routine 07/07/2013 9:02 AM CDT documented in this encounter Results * Latex IgE (07/07/2013 9:02 AM CDT) Scoring Guide See Note () 07/08/2013 9:[address] [facility] HISTORICAL RESULTS Comment: REFERENCE INTERVAL: Allergen, Interpretation ?? Less than 0.10 kU/L......No significant level detected ?? 0.10-0.34 kU/L...........Clinical relevance undetermined ?? 0.35-0.70 kU/L...........Low ?? 0.71-3.50 kU/L...........Moderate ?? 3.51-17.50 kU/L..........High ?? 17.51 kU/L or Greater....Very High ?? Allergen results of 0.10-0.34 kU/L are intended for ?? specialist use as the clinical relevance is undetermined. ?? Even though increasing ranges are reflective of increasing ?? concentrations of allergen-specific IgE, these ?? concentrations may not correlate with the degree of ?? clinical response or skin testing results when challenged ?? with a specific allergen. The correlation of allergy ?? laboratory results with clinical history and in vivo ?? reactivity to specific allergens is essential. A negative ?? test may not rule out clinical allergy or even anaphylaxis. ?? Performed by [employer], ?? [address], [facility] [place] [address] ?? [email or web address], Kodi Lorenz MD, Lab. Director ?? Latex Allergen <0.10 <=0.34 kU/L 07/08/2013 8:[address] [facility] HISTORICAL RESULTS Comment: Performed by [facility], ?? [address] [facility] [address] ?? [email or web address], Kodi Lorenz MD, Lab. Director ?? 07/07/2013 9:02 AM CDT 07/07/2013 9:09 AM CDT Yu Ocampo MD LAB BLOOD ORDERABLES Final Result [facility] HISTORICAL RESULTS * CUCO reflex to quantitative (07/07/2013 9:02 AM CDT) CUCO Screen None Detected None Detected 07/08/2013 3:[address] [facility] HISTORICAL RESULTS Comment: No antibodies to Anti-Nuclear Antibodies (CUCO) detected. No ?? further testing will be performed. ?? INTERPRETIVE INFORMATION: Anti-Nuclear Antibodies (CUCO), ?? IgG by ADRIANNE ?? CUCO specimens are screened using enzyme-linked ?? immunosorbent assay (ADRIANNE) methodology. All ADRIANNE results ?? reported as Detected are further tested by indirect ?? fluorescent assay (IFA) using HEp-2 substrate with an ?? IgG-specific conjugate. The CUCO ADRIANNE screen is designed to ?? detect antibodies against dsDNA, histone, SS-A (Ro), SS-B ?? (La), Polk, snRNP/Sm, Scl-70, Luly-1, centromere, and an ?? extract of lysed HEp-2 cells. CUCO ADRIANNE assays have been ?? reported to have lower sensitivities for antibodies ?? associated with nucleolar and speckled CUCO-IFA patterns. ?? Performed by [facility], ?? [address] [facility] [place] [address] ?? [email or web address], Kodi Lorenz MD, Lab. Director ?? 07/07/2013 9:02 AM CDT 07/07/2013 9:09 AM CDT Yu Ocampo MD LAB BLOOD ORDERABLES Final Result [facility] [employer] HISTORICAL RESULTS * (ABNORMAL) Erythrocyte sedimentation rate (07/07/2013 9:02 AM CDT) ESR 32(H) 0 - 10 mm/hr 07/07/2013 9:27 AM CDT [employer] HISTORICAL RESULTS 07/07/2013 9:02 AM CDT 07/07/2013 9:09 AM CDT us Yu Ocampo MD LAB BLOOD ORDERABLES Final Result [facility] [employer] HISTORICAL RESULTS * CBC with auto differential (07/07/2013 9:02 AM CDT) WBC 5.6 4.6 - 10.2 x10 3/ul 07/07/2013 9:15 AM T [employer] HISTORICAL RESULTS RBC 4.22 3.76 - 4.80 x10 6/ul 07/07/2013 9:15 AM T [employer] HISTORICAL RESULTS Hemoglobin 12.2 11.0 - 15.0 g/dl 07/07/2013 9:15 AM T [employer] HISTORICAL RESULTS Hct 36.8 33.0 - 43.0 % 07/07/2013 9:15 AM T [facility] [employer] HISTORICAL RESULTS MCV 87.2 80.0 - 97.0 fl 07/07/2013 9:15 AM T [facility] [employer] HISTORICAL RESULTS MCH 28.9 27.0 - 31.2 pg 07/07/2013 9:15 AM T [facility] [employer] HISTORICAL RESULTS MCHC 33.2 31.8 - 35.4 g/dl 07/07/2013 9:15 AM [facility] [employer] HISTORICAL RESULTS RDW 13.5 11.6 - 14.8 % 07/07/2013 9:15 AM [facility] [employer] HISTORICAL RESULTS Plt Count 266 124 - 400 x10 3/ul 07/07/2013 9:15 AM T [facility] [employer] HISTORICAL RESULTS MPV 10.0 7.4 - 10.4 fl 07/07/2013 9:15 AM [facility] [employer] HISTORICAL RESULTS Differential Method AUTOMATED DIFF --------- -- Neut % 65.1 37.0 - 85.0 % Immature Gran % 0.4 0.0 - 3.0 % Lymph % 26.5 5.0 - 45.0 % [place] % 6.9 3.0 - 15.0 % Eos % 0.7 0.0 - 7.0 % Baso % 0.4 0.0 - 2.0 % ABSOLUTE COUNTS ABSOLUTE COUNTS --------- -- Absolute Neuts (auto) 3.7 1.7 - 8.7 x10 3/ul Immature Gran # 0.0 0.0 - 0.3 x10 3/ul Absolute Lymphs (auto) 1.5 0.2 - 4.6 x10 3/ul Absolute Monos (auto) 0.4 0.1 - 1.5 x10 3/ul Absolute Eos (auto) 0.0 0.0 - 0.7 x10 3/ul Absolute Basos (auto) 0.0 0.0 - 0.2 x10 3/ul 07/07/2013 9:02 AM CDT 07/07/2013 9:09 AM CDT us Yu Ocampo MD LAB BLOOD ORDERABLES Final Result Performing Organization Address City/[facility]/ZIP Co de Phone Number [facility] HISTORICAL RESULTS * TSH (07/07/2013 9:02 AM CDT) TSH 1.05 0.27 - 4.20 uIU/mL 07/07/2013 9:[address] [facility] HISTORICAL RESULTS 07/07/2013 9:02 AM CDT 07/07/2013 9:09 AM CDT us Yu Ocampo MD LAB BLOOD ORDERABLES Final Result Performing Organization Address [facility] Phone Number [facility] HISTORICAL RESULTS * Ferritin (07/07/2013 9:02 AM CDT) Ferritin 43.8 12.0 - 263.0 ng/mL 07/07/2013 9:[address] [facility] HISTORICAL RESULTS Comment: Female: Premenopause ?13.0-150.0 ng/mL Female: Postmenopause ?? 12.0-263.0 ng/mL 07/07/2013 9:02 AM CDT 07/07/2013 9:09 AM CDT us Yu Ocampo MD LAB BLOOD ORDERABLES Final Result Performing Organization Address [facility] Co de [facility] Number [facility] HISTORICAL RESULTS * Vitamin B12 (07/07/2013 9:02 AM CDT) Vitamin B12 307 211 - 946 pg/mL 07/07/2013 9:[address] [facility] HISTORICAL RESULTS Comment:FASTING IS RECOMMEND ED 07/07/2013 9:02 AM CDT 07/07/2013 9:09 AM CDT us Yu Ocampo MD LAB BLOOD ORDERABLES Final Result Performing Organization Address City/[facility] Co de Phone Number [facility] HISTORICAL RESULTS * Iron profile w/ IBC (07/07/2013 9:02 AM CDT) Iron 83 37 - 145 ug/dL 07/07/2013 9:[address] [facility] HISTORICAL RESULTS Comment:Fasting specimen pre ferred TIBC 307 228 - 428 ug/dL 07/07/2013 9:[address] [facility] HISTORICAL RESULTS Transferrin % Sat 27 20 - 50 % 07/07/2013 9:[address] [facility] HISTORICAL RESULTS 07/07/2013 9:02 AM CDT 07/07/2013 9:09 AM CDT us Yu Ocampo MD LAB BLOOD ORDERABLES Final Result Performing Organization Address [facility] Co de Phone Number [facility] HISTORICAL RESULTS * (ABNORMAL) Hemoglobin A1c (07/07/2013 9:02 AM CDT) Hemoglobin A1c % 6.0(H) 4.8 - 5.9 % 07/07/2013 10:[address] [facility] HISTORICAL RESULTS Comment: As of 2010 Method: ??FARIBA Mj 6000 using turbidometric inhibition immunoassay procedure. Results obtained are comparable to results obtained using previous methodology (HPLC). [place] [employer] recommends that the goal of therapy should be an A1C hemoglobin of <7%. Reevaluate the treatment regimen in patients with an A1C >8%. 07/07/2013 9:02 AM CDT 07/07/2013 9:09 AM CDT us Yu Ocampo MD LAB BLOOD ORDERABLES Final Result Performing Organization Address [facility] Co de Phone Number [facility] HISTORICAL RESULTS * Comprehensive metabolic panel (07/07/2013 9:02 AM CDT) Sodium 139 135 - 145 mmol/L 07/07/2013 9:[address] [facility] HISTORICAL RESULTS Potassium 3.8 3.3 - 5.1 mmol/L 07/07/2013 9:[address] [facility] HISTORICAL RESULTS Chloride 103 96 - 108 mmol/L Carbon Dioxide 28 22 - 32 mmol/L Anion Gap 8 Glucose 96 70 - 110 mg/dL BUN 8 6 - 20 mg/dL Creatinine 0.8 0.5 - 1.1 mg/dL Kidney Disease Stage > 90 mL/MIN Comment: NOTE; ??The GFR is an estimated value using the creatinine, sex, age, and race of the patient. THE ESTIMATED GFR IS VALIDATED FOR AGES 18-70 YEARS STAGE ?mL/Min ?DESCRIPTION ??1 ?90 mL/min or more ?Normal or elevated GFR ??2 ? 60-89 mL/min ?Mildly decreased GFR ??3 ? 30-59 mL/min ?Moderately decreased GFR ??4 ? 15-29 mL/min ?Severely decreased GFR ??5 ? <15 mL/min ? Kidney failure or on dialysis @ Calcium 8.9 8.6 - 10.2 mg/dL Comment: Reporting units changed on 07-06-2013 from mmol/L to mg/dL. Compare to previous results with caution. Total Protein 7.2 6.4 - 8.4 g/dL Albumin 3.9 3.5 - 5.2 g/dL 07/07/2013 9:[address] [facility] HISTORICAL RESULTS Globulin 3.3 2.3 - 3.5 gm/dL 07/07/2013 9:[address] [facility] HISTORICAL RESULTS Albumin/Globulin Ratio 1.2 1.1 - 1.8 07/07/2013 9:[address] [facility] HISTORICAL RESULTS Total Bilirubin 0.7 0.0 - 1.2 mg/dL 07/07/2013 9:[address] [facility] HISTORICAL RESULTS AST 14 0 - 32 U/L 07/07/2013 9:[address] [facility] HISTORICAL RESULTS ALT 9 0 - 31 U/L Alkaline Phosphatase 86 35 - 104 U/L 07/07/2013 9:02 AM CDT 07/07/2013 9:09 AM CDT us Yu Ocampo MD LAB BLOOD ORDERABLES Final Result [facility] HISTORICAL RESULTS documented in this encounter Visit Diagnoses Diagnosis Routine general medical examination at a health care facility documented in this encounter
== END 2024-09-12 07:12 | disposition home or self-care (01) ==
PROVIDERS: Visit Provider Obstetrics & Gynecology
DX: E66.01 Morbid (severe) obesity due to excess calories (principal)
CPT/HCPCS: 36415; 80053; 80061; 82306; 84443; 85025

== ENCOUNTER 2024-12-06 16:16 | Outpatient (CLI) | payer OTHER, SELFPAY ==
--- OUTSIDE RECORDS SUMMARY | 2024-12-06 17:15 | XMS_ITS | Referral Summary ---
Author Organization [facility] [address] Address [address] [place] [phone] Care Team Providers Care Metallurgy Teacher Name Role Phone Lillian Adam MD Primary Care Provider [phone] Tommy Brownlee MD Unavailable [phone] Allergies No known active allergies Medications ergocalciferol [...] high risk with job, BMI Provided spliting diane, offered PT but she wants to hold [...] statins if diabetic. 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 SETTER Gender Identity Not on file Sexual Orientation Not on file Last Filed Vital Signs Vital Sign Reading Time Taken Comments Blood Pressure 134/64 09/09/2021 11:30 AM GRANITE SETTER Pulse 58 09/09/2021 11:30 AM GRANITE SETTER Temperature 36.3 C (97.3 F) 09/09/2021 11:00 AM GRANITE SETTER Respiratory Rate 16 09/09/2021 11:30 AM GRANITE SETTER Oxygen Saturation 95% 09/09/2021 11:30 AM GRANITE SETTER Inhaled Oxygen Concentration - - Weight 106.2 kg (234 lb 1 oz) 09/09/2021 7:51 AM GRANITE SETTER Height 157.5 cm (5' 2 ) 09/09/2021 7:51 AM GRANITE SETTER Body Mass Index 42.81 09/09/2021 7:51 AM GRANITE SETTER Plan of Treatment Not on file Procedures Procedure Name Priority Date/Time Associated Diagnosis Comments MAMMOGRAPHY Routine 07/11/2020 PAP SMEAR WITH HPV Routine 06/04/2020 from Last 3 Months or Most Recently Relevant to Health Maintenance Results * HM MAMMOGRAPHY (07/11/2020) Historical Provider HEALTH MAINTENANCE Final Result * PAP SMEAR WITH HPV (06/04/2020) Historical Provider HEALTH MAINTENANCE Final Result from Last 3 Months or Most Recently Relevant to Health Maintenance Insurance [facility] CHOICE PLUS Care Teams Metallurgy Teacher Relationship Specialty Start Date End Date Lillian Adam MD PCP - General Internal Medicine 12/25/20 Tommy Brownlee MD [address] [facility] [address] [place] [id number] Referring Physician Obstetrics and Gynecology 01/20/21
--- OUTSIDE RECORDS SUMMARY | 2024-12-06 17:15 | XMS_ITS | Clinical Summary ---
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 Gender Identity Not on file Sexual Orientation Not on file Obstetrics History Last Filed Vital Signs Vital Sign Reading Time Taken Comments Blood Pressure 134/64 09/09/2021 11:30 AM FARMER CASH GRAIN Pulse 58 09/09/2021 11:30 AM FARMER CASH GRAIN Temperature 36.3 C (97.3 F) 09/09/2021 11:00 AM FARMER CASH GRAIN Respiratory Rate 16 09/09/2021 11:30 AM FARMER CASH GRAIN Oxygen Saturation 95% 09/09/2021 11:30 AM FARMER CASH GRAIN Inhaled Oxygen Concentration - - Weight 106.2 kg (234 lb 1 oz) 09/09/2021 7:51 AM FARMER CASH GRAIN Height 157.5 cm (5' 2 ) 09/09/2021 7:51 AM FARMER CASH GRAIN Body Mass Index 42.81 09/09/2021 7:51 AM FARMER CASH GRAIN Plan of Treatment Health Maintenance Due Date Last Done Comments Colon Cancer Screening-Colonoscopy 1967 Hepatitis C Screening 1967 Hepatitis B Screening 1985 Pneumococcal vaccine <65 (1 of 2 - PCV) 1986 DTaP/Tdap/Td Vaccine (2 - Td or Tdap) 11/12/2016 Zoster Vaccine (1 of 2) 2017 Cervical Cancer Screening 06/04/2021 06/04/2020 Breast Cancer Screening-Mammogram 07/11/2021 020 Depression Screening 01/20/2022 01/20/2021 Regular Well Visit/Exam 18-64 07/16/2022 07/16/2021 Covid-19 Vaccine ( - season) 05/21/202406/2021, 10/30/2020 Influenza Vaccine (#1) [...] Most Recently Relevant to Health Maintenance Insurance [place] [address] [place] [address] CHOICE PLUS Care Teams Education Program Associate Relationship Specialty Start Date End Date Lillian Adam MD PCP - General Internal Medicine 12/25/20 Tommy Brownlee MD [address] [place] [address] Referring Physician Obstetrics and Gynecology 01/20/21
== END 2024-12-06 16:17 | disposition home or self-care (01) ==
LOC: ANHLAB 16:17
PROVIDERS: Visit Provider Obstetrics & Gynecology
DX: Z76.89 Persons encountering health services in other specified circumstances (principal)
CPT/HCPCS: 36415

== ENCOUNTER 2024-12-19 17:14 | Outpatient (CLI) | payer OTHER, SELFPAY ==
--- OUTSIDE RECORDS SUMMARY | 2024-12-19 17:41 | XMS_ITS | Clinical Summary ---
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 Gender Identity Not on file Sexual Orientation Not on file Obstetrics History Last Filed Vital Signs Vital Sign Reading Time Taken Comments Blood Pressure 134/64 09/09/2021 11:30 AM NEWSPAPER PHOTO EDITOR Pulse 58 09/09/2021 11:30 AM NEWSPAPER PHOTO EDITOR Temperature 36.3 C (97.3 F) 09/09/2021 11:00 AM NEWSPAPER PHOTO EDITOR Respiratory Rate 16 09/09/2021 11:30 AM NEWSPAPER PHOTO EDITOR Oxygen Saturation 95% 09/09/2021 11:30 AM NEWSPAPER PHOTO EDITOR Inhaled Oxygen Concentration - - Weight 106.2 kg (234 lb 1 oz) 09/09/2021 7:51 AM NEWSPAPER PHOTO EDITOR Height 157.5 cm (5' 2 ) 09/09/2021 7:51 AM NEWSPAPER PHOTO EDITOR Body Mass Index 42.81 09/09/2021 7:51 AM NEWSPAPER PHOTO EDITOR Plan of Treatment Health Maintenance Due Date [...] ( - season) 05/21/202406/2021, 10/30/2020 Influenza Vaccine (Season Ended) 2025 07/04/20 20 Procedures Procedure Name Priority Date/Time Associated Diagnosis Comments HM MAMMOGRAPHY Routine 07/11/2020 HM PAP SMEAR WITH HPV Routine 06/04/2020 from Last 3 Months or Most Recently Relevant to Health Maintenance Results * HM MAMMOGRAPHY (07/11/2020) Historical Provider HEALTH MAINTENANCE Final Result * HM PAP SMEAR WITH HPV (06/04/2020) Historical Provider HEALTH MAINTENANCE Final Result from Last 3 Months or Most Recently Relevant to Health Maintenance [place] [address] CHOICE PLUS Care Teams Construction Carpenters Helper Relationship Specialty Start Date End Date Lillian Adam MD PCP - General Internal Medicine 12/25/20 Tommy Brownlee MD [address] [facility] [address] [place] [address] Referring Physician Obstetrics and Gynecology 01/20/21
--- OUTSIDE RECORDS SUMMARY | 2024-12-19 17:41 | XMS_ITS | Referral Summary ---
Author Organization [facility] [address] Address [address] [place] [phone] Care Team Providers Care Manager Ethics Name Role Phone Lillian Adam MD Primary Care Provider [phone] Tommy Brownlee MD Unavailable [phone] Allergies No known active allergies Medications ergocalciferol [...] on file Legal Sex Female 8:38 PM TAX MAP TECHNICIAN Gender Identity Not on file Sexual Orientation Not on file Last Filed Vital Signs Vital Sign Reading Time Taken Comments Blood Pressure 134/64 09/09/2021 11:30 AM TAX MAP TECHNICIAN Pulse 58 09/09/2021 11:30 AM TAX MAP TECHNICIAN Temperature 36.3 C (97.3 F) 09/09/2021 11:00 AM TAX MAP TECHNICIAN Respiratory Rate 16 09/09/2021 11:30 AM TAX MAP TECHNICIAN Oxygen Saturation 95% 09/09/2021 11:30 AM TAX MAP TECHNICIAN Inhaled Oxygen Concentration - - Weight 106.2 kg (234 lb 1 oz) 09/09/2021 7:51 AM TAX MAP TECHNICIAN Height 157.5 cm (5' 2 ) 09/09/2021 7:51 AM TAX MAP TECHNICIAN Body Mass Index 42.81 09/09/2021 7:51 AM TAX MAP TECHNICIAN Plan of Treatment Not on file Procedures [...] Most Recently Relevant to Health Maintenance Insurance [facility] CHOICE PLUS [facility] HMO/PPO Address: [address] [address] [place] [address] [facility] H[facility]/PPO Address: [address] [place] [address] Care Teams Manager Ethics Relationship Specialty Start Date End Date Lillian Adam MD PCP - General Internal Medicine 12/25/20 Tommy Brownlee MD [address] [facility] [address] [place] [id number] Referring Physician Obstetrics and Gynecology 01/20/21
[2024-12-19 18:04] LABS: Alanine Aminotransferase 18 U/L (6-35); Albumin Level 4.2 g/dL (3.5-5.1); Alkaline Phosphatase 120 U/L (38-126); Anion Gap 9 mmol/L (4-12); Aspartate Amino Transferase 25 U/L (14-36); Bilirubin,Total 0.5 mg/dL (0.2-1.3); Blood Urea Nitrogen 16 mg/dL (7-17); Calcium 9.3 mg/dL (8.4-10.2); Carbon Dioxide 29 mmol/L (22-30); Chloride 102 mmol/L (98-107); Estimated Glomerular Filt Rate 56; Glucose 99 mg/dL (65-110); Potassium 4.1 mmol/L (3.4-5.0); Sodium 140 mmol/L (137-145)
== END 2024-12-19 17:15 | disposition home or self-care (01) ==
LOC: ANHLAB 17:18
PROVIDERS: Visit Provider Obstetrics & Gynecology
DX: Z76.89 Persons encountering health services in other specified circumstances (principal)
CPT/HCPCS: 36415; 80053

== ENCOUNTER 2025-08-08 07:16 | Outpatient (CLI) | payer OTHER, SELFPAY ==
[2025-08-08 07:44] LABS: Hematocrit 38.8 % (37.0-47.0); Hemoglobin 12.8 g/dL (12.0-15.0); Immature Granulocyte Percent A 0.3 % (0-0.5); Lymphocytes Absolute Auto 1.80 K/mm3 (0.9-3.2); Mean Corpuscular HGB Conc 33.0 g/dl (32-36); Mean Corpuscular Hemoglobin 29.7 pg (26-34); Mean Corpuscular Volume 90.0 fl (80-100); Nucleated Red Blood Cells Absolute Auto 0.000 K/mm3 (0.0-0.012); Nucleated Red Blood Cells Perc 0.0 % (0.0-0.2); Platelet Count Result 313 k/mm3 (150-375); Red Blood Count 4.31 M/mm3 (4.2-5.4); White Blood Count 5.9 K/mm3 (4.5-10.0)
[2025-08-08 08:04] LABS: Alanine Aminotransferase 16 U/L (6-35); Albumin Level 4.0 g/dL (3.5-5.1); Alkaline Phosphatase 118 U/L (38-126); Anion Gap 5 mmol/L (4-12); Aspartate Amino Transferase 27 U/L (14-36); Bilirubin,Total 0.7 mg/dL (0.2-1.3); Blood Urea Nitrogen 12 mg/dL (7-17); Calcium 9.4 mg/dL (8.4-10.2); Carbon Dioxide 30 mmol/L (22-30); Chloride 106 mmol/L (98-107); Cholesterol 230 mg/dL (0-200); Estimated Glomerular Filt Rate > 60; Glucose 106 mg/dL (65-110); HDL Direct 52 mg/dL; Potassium 3.9 mmol/L (3.4-5.0); Sodium 141 mmol/L (137-145); Total Protein 7.0 g/dL (6.3-8.2); Triglycerides 89 mg/dL (<150)
== END 2025-08-08 07:17 | disposition home or self-care (01) ==
LOC: ANHLAB 07:17
PROVIDERS: PCP Internal Medicine; Visit Provider Nurse Practitioner
DX: Z13.29 Encounter for screening for other suspected endocrine disorder (principal); Z13.220 Encounter for screening for lipoid disorders; E55.9 Vitamin D deficiency, unspecified
CPT/HCPCS: 36415; 80053; 80061; 82306; 85025